=== PATIENT | male | born 1955 | race Caucasian/White ===

== ENCOUNTER 2016-11-07 18:35 | Inpatient (IN) | payer MEDICARE, OTHER, MEDICAID ==
[~2016-11-07] VITALS: Ht 190.5 cm; Wt 71.4 kg
[~2016-11-07 18:35] MED LIST: BENZ1TAB PO; HALO10 PO; LITH1TAB3 PO; MVI PO
[2016-11-07 18:47] VITALS: BP 175/87; PULSE 97; RESP 16; TEMP 98.6; O2SAT 97
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
[2016-11-07] MEDS ORDERED: TETANUS/DIPHTHERIA TOXOID ADULT 0.5 ML VIAL IM ONE (19:45)
[2016-11-07 20:10] LABS: BASOPHIL # 0.1 TH/MM3 (0-0.2); EOSINOPHIL # 0.1 TH/MM3 (0-0.4); EOSINOPHIL % 1.3 % (0.0-4.0); HEMATOCRIT 43.3 % (39.0-51.0); HEMO FLAGS DIFF FINAL; LYMPH % 23.1 % (9.0-44.0); LYMPHOCYTE # 2.1 TH/MM3 (1.0-4.8); MEAN CELL VOLUME 93.4 FL (80.0-100.0); MEAN CORPUSCULAR HEMOGLOBIN 31.1 PG (27.0-34.0); MEAN CORPUSCULAR HGB CONC 33.3 % (32.0-36.0); MONO % 7.9 % (0.0-8.0); NEUT % 66.7 % (16.0-70.0); PLATELET COUNT 235 TH/MM3 (150-450); RED BLOOD COUNT 4.63 MIL/MM3 (4.50-5.90); RED CELL DISTRIBUTION WIDTH 15.7 % (11.6-17.2)
[2016-11-07 20:17] LABS: AMPHETAMINE, URINE NEG (NEG); BARBITURATES, URINE NEG (NEG); COCAINE, URINE POS (NEG)
[2016-11-07 20:41] LABS: ANION GAP 6 MEQ/L (5-15); AST (GOT) 20 U/L (15-37); BICARBONATE 24.6 MEQ/L (21.0-32.0); BLOOD UREA NITROGEN 30 MG/DL (7-18); CHLORIDE 109 MEQ/L (98-107); GLOMERULAR FILTRATION RATE 35 ML/MIN (>89); POTASSIUM 4.4 MEQ/L (3.5-5.1); SODIUM (NA) 140 MEQ/L (136-145)
[2016-11-07 20:42] LABS: ALT (GPT) 24 U/L (12-78)
[2016-11-07 20:44] LABS: ALKALINE PHOSPHATASE 103 U/L (45-117); TOTAL BILIRUBIN ADULT 0.4 MG/DL (0.2-1.0)
[2016-11-07] MEDS ORDERED: SODIUM CHLOR 0.9% 1000 ML INJ 1,000 ML IV SCH (21:13)
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
[2016-11-08 09:30] VITALS: BP 131/73; PULSE 66; RESP 18; TEMP 97.9
[2016-11-08] MEDS ORDERED: ACETAMINOPHEN 325 MG TAB PO PRN (09:30)
[2016-11-08] MEDS ORDERED: LORazepam 2 MG/ML VIAL IM PRN (09:30)
[2016-11-08] MEDS ORDERED: BENZTROPINE MESYLATE 1 MG TAB PO PRN (09:30)
[2016-11-08] MEDS ORDERED: MAGNESIUM HYDROXIDE SUSP 30 ML CUP PO PRN (09:30)
[2016-11-08] MEDS ORDERED: ALUMINUM/MAGNESIUM/SIMETH 30 ML CUP PO PRN (09:30)
[2016-11-08] MEDS ORDERED: BENZTROPINE MESYLATE 2 MG/2 ML VIAL IM PRN (09:30)
[2016-11-08] MEDS ORDERED: cloNIDine HCL 0.1 MG TAB PO PRN (10:00)
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
[2016-11-08] MEDS ORDERED: OLANZapine ODT 5 MG TAB PO SCH (21:00)
[2016-11-08] MEDS: diphenhydrAMINE HCL 50 MG CAP PO PRN (21:19)
[2016-11-09] MEDS: LORazepam 1 MG TAB PO PRN ×2 (00:12→09:01)
[2016-11-09 06:16] VITALS: BP 141/88; PULSE 96; RESP 18; TEMP 97.6; O2SAT 98
[2016-11-09] MEDS ORDERED: REMOVE OLD PATCH T-DERMAL SCH (09:00)
[2016-11-09] MEDS: NICOTINE 21 MG/24 HR PATCH T-DERMAL SCH (09:01)
[2016-11-09 09:12] LABS: ANION GAP 6 MEQ/L (5-15); BICARBONATE 25.7 MEQ/L (21.0-32.0); BLOOD UREA NITROGEN 31 MG/DL (7-18); CHLORIDE 111 MEQ/L (98-107); GLOMERULAR FILTRATION RATE 38 ML/MIN (>89); POTASSIUM 4.2 MEQ/L (3.5-5.1); SODIUM (NA) 143 MEQ/L (136-145)
[2016-11-09 09:15] LABS: HDL CHOLESTEROL 56.1 MG/DL (40.0-60.0); LDL CHOLESTEROL 121 MG/DL (0-99)
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
[2016-11-09 17:07] LABS: HEMOGLOBIN A1a 1.2 %; HEMOGLOBIN A1b 1.7 %; HEMOGLOBIN Ao 84.4 %; HEMOGLOBIN LA1C 2.1 %; HEMOGLOBIN P3 5.7 %
[2016-11-09 19:19] VITALS: BP 112/76; PULSE 92; RESP 18; TEMP 98.1; O2SAT 99
[2016-11-09] MEDS: REMOVE OLD NICODERM (NICOTINE) PATCH T-DERMAL SCH (21:00)
[2016-11-09] MEDS ORDERED: OLANZapine 2.5 MG TAB PO SCH (21:00)
[2016-11-09] MEDS: diphenhydrAMINE HCL 50 MG CAP PO PRN (21:24)
[2016-11-10 06:21] VITALS: BP 136/77; PULSE 85; RESP 18; TEMP 97.6
[2016-11-10] MEDS: NICOTINE 21 MG/24 HR PATCH T-DERMAL SCH (08:17)
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
--- NOTE | 2016-11-10 13:25 | RADRPT ---
EXAM DATE/TIME: 11/10/2016 10:00 [facility] COMPARISON: No previous studies available for comparison. INDICATIONS : Increased Bun and Creatinine. MEDICAL HISTORY : Bipolar. Schizophrenic. SURGICAL HISTORY : None. ENCOUNTER: Initial ACUITY: 1 day PAIN SCORE: 0/10 LOCATION: Bilateral flank MEASUREMENTS: RIGHT KIDNEY: 11.3 x 5.6 x 5.3 cm LEFT KIDNEY: 11.3 x 3.8 x 5.8 cm FINDINGS: RIGHT KIDNEY: Renal cortical thickness is preserved but there is increased echogenicity with scattered cortical cys ts. These measure 1.5 x 2.1 x 1.4 cm and 1.6 x 1.4 x 1.2 cm in the upper pole as well as a 1.1 x 1.0 x 0.8 cm cyst in the lower pole.LEFT KIDNEY: Renal cortical thickness is preserved but there is increased cortical echogenicity with scattered cor tical cysts. Dominant cyst in the upper pole measures 1.3 x 1.4 x 1.2 cm BLADDER: Within normal limits given the degree of distension. CONCLUSION: 1. Kidney sizes are symmetric with preserved renal cortical thickness. 2. However, there is increased cortical echogenicity bilaterally suggesting acute medical renal disea se. 3. Benign-appearing bilateral small renal cortical cysts. Urinary bladder is sonographically normal. Froy Monreal MD on November 10, 2016 at 13:20 Board Certified Radiologist. This report was verified electronically.
[2016-11-10 15:59] VITALS: BP 167/110; PULSE 67; RESP 18; TEMP 98.1; O2SAT 100
[2016-11-10] MEDS: diphenhydrAMINE HCL 50 MG CAP PO PRN (20:38)
[2016-11-10] MEDS: REMOVE OLD NICODERM (NICOTINE) PATCH T-DERMAL SCH (20:41)
[2016-11-10] MEDS ORDERED: OLANZapine 10 MG TAB PO SCH (21:00)
[2016-11-11 06:11] VITALS: BP 143/90; PULSE 106; RESP 18; TEMP 97.6; O2SAT 99
[2016-11-11] MEDS: NICOTINE 21 MG/24 HR PATCH T-DERMAL SCH (08:44)
[2016-11-11 10:13] LABS: BICARBONATE 24.4 MEQ/L (21.0-32.0); POTASSIUM 4.2 MEQ/L (3.5-5.1)
--- NOTE | 2016-11-11 11:55 | HHI.PYPN ---
Subjective Remarks Patient seen and examined with counselor and nurse. Chart reviewed. Case discussed with nursing staff who reports patient remains bizarre and rambling. He continues in this manner during my evaluation. He does verbalize a desire to change his living situation but declines [facility] placement at this time. Denies SI or HI today. No side effects from medications. No physical complaints. Review of Systems ROS Limitations: Psychotic, Poor Historian Except as stated in HPI: all other systems reviewed are Neg Objective Alert: Yes [place]: Person, Place Mood: Other (mildly elevated) Affect: Other (somewhat expansive) Memory Intact: Comment (Not formally assessed) Hallucinations: Auditory (Remains int preoccupied) Delusions: Yes Delusion Type: Paranoid (?lessening) Suicidal: Ideation (Denies SI) Homicidal: Ideation (Denies HI) Insight/Judgment Poor Remarks No motor abnormalities noted. Thought process remains somewhat tangential. Grooming and hygiene fair at best. Labs Test 11/11/16 09:10 Sodium Level 143 MEQ/L Potassium Level 4.2 MEQ/L Chloride Level 113 MEQ/L Carbon Dioxide Level 24.4 MEQ/L Anion Gap 6 MEQ/L Blood Urea Nitrogen 29 MG/DL Creatinine 1.43 MG/DL Estimat Glomerular Filtration 50 ML/MIN Rate Random Glucose 66 MG/DL Calcium Level 9.2 MG/DL Labs reviewed. GFR improved. Vitals/IOs Vital Signs Date Time Temp Pulse Resp B/P Pulse Ox O2 Delivery O2 Flow Rate FiO2 11/11/16 06:11 97.6 106 18 143/90 99 11/07/16 18:47 Room Air Assessment & Plan Problem List: (1) Schizoaffective disorder, bipolar type ICD Code: F25.0 (2) Cocaine abuse ICD Code: F14.10 Assessment & Plan Titrate Zyprexa through the weekend to target psychosis. Continue to monitor on the high acuity unit. Continue other medications and care as ordered. Justification for Cont. Inpt. Med changes. High risk for decompensation in less restrictive environment. Discharge Planning Pending psychiatric stabilization. Possible discharge beginning of next week. We have recommended [facility] placement, but the patient has declined. Request HC Surrog/Guard Advoc?: No Semaj Dos Santos MD Nov 11, 2016 11:55
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
[2016-11-11 15:40] VITALS: BP 143/107
[2016-11-11 17:27] VITALS: BP 130/88
[2016-11-11] MEDS: REMOVE OLD NICODERM (NICOTINE) PATCH T-DERMAL SCH (21:00)
[2016-11-11] MEDS ORDERED: OLANZapine 5 MG TAB PO SCH (21:00)
[2016-11-11] MEDS ORDERED: OLANZapine 10 MG TAB PO SCH (21:00)
[2016-11-12 06:16] VITALS: BP 144/82; PULSE 100; RESP 18; TEMP 97.6; O2SAT 100
[2016-11-12] MEDS: NICOTINE 21 MG/24 HR PATCH T-DERMAL SCH (08:14)
--- NOTE | 2016-11-12 13:29 | HHI.PYPN ---
Subjective Remarks Pt seen and discussed with staff. He is compliant wi medications and is tolerating olanzapine titration without side effects. He is disorganized in behaviors and thought process. No SI/HI Objective Alert: Yes [place]: Person, Place Mood: Other (mildly elevated) Affect: Other (somewhat expansive) Memory Intact: Comment (Not formally assessed) Hallucinations: Auditory (Remains int preoccupied) Delusions: Yes Delusion Type: Paranoid (?lessening) Suicidal: Ideation (Denies SI) Homicidal: Ideation (Denies HI) Insight/Judgment disorganized Vitals/IOs Vital Signs Date Time Temp Pulse Resp B/P Pulse Ox O2 Delivery O2 Flow Rate FiO2 11/12/16 06:16 97.6 100 18 144/82 100 Assessment & Plan Problem List: (1) Schizoaffective disorder, bipolar type ICD Code: F25.0 (2) Cocaine abuse ICD Code: F14.10 Assessment & Plan Estimated LOS: days Justification for Cont. Inpt. impairments in reality construction Request HC Surrog/Guard Advoc?: Liss Gardner MD Nov 12, 2016 13:29
[2016-11-12 18:00] VITALS: BP 154/78; PULSE 77; RESP 18; TEMP 98.5
[2016-11-12] MEDS: REMOVE OLD NICODERM (NICOTINE) PATCH T-DERMAL SCH (20:59)
[2016-11-13 05:48] VITALS: BP 153/73; PULSE 100; RESP 18; TEMP 97.4; O2SAT 97
[2016-11-13] MEDS: NICOTINE 21 MG/24 HR PATCH T-DERMAL SCH (08:47)
--- NOTE | 2016-11-13 12:36 | HHI.PYPN ---
Subjective Remarks Pt seen and discussed with staff. He remains internally preoccupied and has been religiously preoccupied. He has been talking about cutting of his hand and burning the bible. He is intrusive during interview. He has been cooperative and compliant with medications. No SI/HI Objective Alert: Yes [place]: Person, Place Mood: Other (mildly elevated) Affect: Other (somewhat expansive) Memory Intact: Comment (Not formally assessed) Hallucinations: Auditory (Remains int preoccupied) Delusions: Yes Delusion Type: Paranoid (?lessening) Suicidal: Ideation (Denies SI) Homicidal: Ideation (Denies HI) Insight/Judgment poor Remarks pressured speech Vitals/IOs Vital Signs Date Time Temp Pulse Resp B/P Pulse Ox O2 Delivery O2 Flow Rate FiO2 11/13/16 05:48 97.4 100 18 153/73 97 Assessment & Plan Problem List: (1) Schizoaffective disorder, bipolar type ICD Code: F25.0 (2) Cocaine abuse ICD Code: F14.10 Assessment & Plan Continue current tx plan. Estimated LOS: days Justification for Cont. Inpt. impairments in reality testing and self care. Request HC Surrog/Guard Advoc?: Liss Gardner MD Nov 13, 2016 12:35
[2016-11-13 18:19] VITALS: BP 153/71; PULSE 71; RESP 18; TEMP 97.5; O2SAT 99
[2016-11-13] MEDS: REMOVE OLD NICODERM (NICOTINE) PATCH T-DERMAL SCH (21:00)
[2016-11-14 06:17] VITALS: BP 150/83; PULSE 79; RESP 18; TEMP 97.4; O2SAT 99
[2016-11-14] MEDS: NICOTINE 21 MG/24 HR PATCH T-DERMAL SCH (09:06)
--- NOTE | 2016-11-14 09:41 | HHI.PYPN ---
Subjective Remarks Patient seen and examined with counselor and nurse. Chart reviewed. Case discussed with nursing staff who reports that the patient slept poorly overnight and was telling nursing staff that he was hearing voices telling him to cut off his arm. On my examination today, the patient remains somewhat circumstantial. He denies any audiovisual hallucinations and denies any urge to self injure. He does say that prior to admission he was reading the Bible and came upon the passage that said that blood is required for the remission of since, and this is how he conceived of the idea to cut himself. He denies any urge to do so now. He admits that his sleep was somewhat poor overnight. Denies side effects from medications. No physical complaints. Review of Systems ROS Limitations: Poor Historian Except as stated in HPI: all other systems reviewed are Neg Objective Alert: Yes [place]: Person, Place (at least) Mood: Happy Affect: Euthymic (euthymic to very slightly expansive) Memory Intact: Comment (Not formally assessed) Hallucinations: Other (denies AVH) Delusions: Yes Delusion Type: Paranoid (lessening) Suicidal: Ideation (Denies SI) Homicidal: Ideation (Denies HI) Insight/Judgment Poor Remarks No motor abnormalities noted. Thought process somewhat circumstantial. Grooming and hygiene fair. Labs Labs reviewed. Vitals/IOs Vital Signs Date Time Temp Pulse Resp B/P Pulse Ox O2 Delivery O2 Flow Rate FiO2 11/14/16 06:17 97.4 79 18 150/83 99 Assessment & Plan Problem List: (1) Schizoaffective disorder, bipolar type ICD Code: F25.0 (2) Cocaine abuse ICD Code: F14.10 Assessment & Plan Titrate Zyprexa to 20 mg at bedtime to try to help with sleep and also psychosis. Continue to monitor on the high acuity unit. Continue other medications and care as ordered. Justification for Cont. Inpt. Medication changes in process. Discharge Planning Possible discharge later this week Request HC Surrog/Guard Advoc?: No Semaj Dos Santos MD Nov 14, 2016 09:41
[2016-11-14 18:11] VITALS: BP 130/79; PULSE 72; RESP 16; TEMP 97.4; O2SAT 98
[2016-11-14] MEDS: REMOVE OLD NICODERM (NICOTINE) PATCH T-DERMAL SCH (21:00)
[2016-11-14] MEDS: OLANZapine 10 MG TAB PO SCH (21:51)
[2016-11-14] MEDS: diphenhydrAMINE HCL 50 MG CAP PO PRN (21:52)
[2016-11-15 06:12] VITALS: BP 140/86; PULSE 71; RESP 18; TEMP 97.4; O2SAT 100
[2016-11-15] MEDS: NICOTINE 21 MG/24 HR PATCH T-DERMAL SCH (08:56)
--- NOTE | 2016-11-15 11:23 | HHI.PYPN ---
Subjective Remarks Patient seen and examined with nurse. Chart reviewed. Case discussed in treatment team. Nursing staff relates that the patient slept better and has been medication compliant. Counselor shares that the patient resides in a motel and has done so for several years and is welcome to return there. Occupational therapist notes that the patient is attending about 75% of groups and is somewhat intrusive but otherwise no real behavioral problem. On my examination today, the patient denies AVH. Denies any suicidal or homicidal ideation. Says that his presenting latter day preoccupation and subsequent self injury are in his past. Describes this behavior as "a mistake." Requesting discharge soon. Denies side effects from medications. No physical complaints. We discussed possible referral for assisted living placement, but the patient prefers to return to his current living situation. Review of Systems ROS Limitations: Poor Historian Except as stated in HPI: all other systems reviewed are Neg Objective Alert: Yes [place]: Person, Place Mood: Calm, Happy Affect: Euthymic Memory Intact: Comment (Not formally assessed) Hallucinations: Other (denies hallucinations) Delusions: No Delusion Type: Other (no delusions. Denies latter day preoccupation.) Suicidal: Ideation (Denies SI) Homicidal: Ideation (Denies HI) Insight/Judgment Poor Remarks No motor abnormalities. Thought processes fairly linear. Labs Labs reviewed. Vitals/IOs Vital Signs Date Time Temp Pulse Resp B/P Pulse Ox O2 Delivery O2 Flow Rate FiO2 11/15/16 06:12 97.4 71 18 140/86 100 Assessment & Plan Problem List: (1) Schizoaffective disorder, bipolar type ICD Code: F25.0 (2) Cocaine abuse ICD Code: F14.10 Assessment & Plan Continue Zyprexa as ordered. Continue to monitor on the inpatient unit. Continue other medications and care as ordered. Justification for Cont. Inpt. Monitoring for impairments in safety. So far none noted. Discharge Planning Possible discharge tomorrow if the patient remains improved. He declines assisted living placement and is capacitated to do so. Request HC Surrog/Guard Advoc?: No Semaj Dos Santos MD Nov 15, 2016 11:23
--- NOTE | 2016-11-15 11:23 | PD.TTN ---
Present for Treatment Team Treatment Team Staff: Provider (Dr. Dos Santos), Nurse (Jeff Champion RN), Psych Therapist (ELLI Baron), Occupational Therapist (MAURO Cruz) Patient Problems 1. Discharge planning 2. Medication compliance 3. Knowledge deficit 4. Lack of coping skills Progress Toward Goals Provider Input: Pt Zyprexa will be titrated to assist with further stabilization on medication regiment. Nurse Input: Pt appears to be sleeping better, is religiously preoccupied, cooperative and denies auditory hallucinations. Psych Therapist Input: Pt appears religiously preoccupied, delusional, calm, cooperative and appropriate. Pt presents with poor insight into condition and need for care. He appears to be able to utilize coping skills as he is no behavioral problem on unit. He is compliant with medication regiment. He will be offered assistance with placement at [facility] but can return to the motel that he has been living at for many years. Occupational Therapist Input: Pt is attending 75% of groups but has poor participation and is very intrusive. Documentation Scribe: ELLI Baron Jonathan LMHC Nov 15, 2016 11:23
[2016-11-15 18:10] VITALS: BP 139/72; PULSE 78; RESP 18; TEMP 98.2; O2SAT 100
[2016-11-15] MEDS: REMOVE OLD NICODERM (NICOTINE) PATCH T-DERMAL SCH (20:29)
[2016-11-15] MEDS: OLANZapine 10 MG TAB PO SCH (20:30)
[2016-11-15] MEDS: diphenhydrAMINE HCL 50 MG CAP PO PRN (20:32)
[2016-11-16 06:10] VITALS: BP 157/88; PULSE 81; RESP 18; TEMP 97.6; O2SAT 98
[2016-11-16] MEDS: NICOTINE 21 MG/24 HR PATCH T-DERMAL SCH (08:54)
[2016-11-16] MEDS ORDERED: BACI500O9 TOPICAL (10:44)
[2016-11-16] MEDS ORDERED: OLAN10TA PO (10:44)
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
[2016-11-16 13:16] LABS: BLOOD, URINE NEG (NEG); GLUCOSE,URINE NEG (NEG); KETONE, URINE NEG (NEG); NITRITE,URINE NEG (NEG); URINE COLOR LIGHT-YELLOW (YELLW/STRAW)
[2016-11-16 13:21] LABS: COMMENT (UR) CULT NOT INDICATED; CULTURE IF INDICATED CULT NOT INDICATED
== END 2016-11-16 14:35 | disposition home or self-care (01) | DRG 885 ==
LOC: NEDAMB 18:35 → NEDA 11-08 08:08 → H260 11-08 09:15 → H270 11-10 13:00
PROVIDERS: ADMIT Psychiatry & Neurology Psychiatry; ATTEND Psychiatry & Neurology Psychiatry
DX: F25.0 Schizoaffective disorder, bipolar type (principal); N17.9 Acute kidney failure, unspecified; F14.10 Cocaine abuse, uncomplicated; F17.210 Nicotine dependence, cigarettes, uncomplicated; N18.9 Chronic kidney disease, unspecified; I12.9 Hypertensive chronic kidney disease with stage 1 through stage 4 chronic kidney disease, or unspecified chronic kidney disease; S61.511A Laceration without foreign body of right wrist, initial encounter; X78.1XXA Intentional self-harm by knife, initial encounter
CPT/HCPCS: 76775; 80048; 80053; 80061; 80307; 81001; 83036; 85025; 90471; 90714; Q0163

== ENCOUNTER 2016-11-21 13:03 | Emergency (ER) | payer MEDICARE, OTHER ==
[~2016-11-21] VITALS: Ht 182.9 cm; Wt 80.0 kg
[~2016-11-21 13:03] MED LIST changes: +BACI500O9 TOPICAL; -BENZ1TAB PO; -HALO10 PO; -LITH1TAB3 PO; -MVI PO; +OLAN10TA PO
[2016-11-21 13:07] VITALS: BP 104/58; PULSE 136; RESP 20; TEMP 99.8; O2SAT 98
--- NOTE | 2016-11-21 13:17 | PD ---
Physical Exam Date Seen by Provider: Nov 21, 2016 Time Seen by Provider: 13:14 Narrative 61 y/o male with draining swollen right wrist since wounding it about 10 days ago and received a tetanus shot. Now having swelling, drainage, fever and chills. Vital signs reviewed. Patient stable. Awaiting Bed placement. Data Data Last Documented VS Vital Signs Date Time Temp Pulse Resp B/P Pulse Ox O2 Delivery O2 Flow Rate FiO2 11/21/16 13:07 99.8 136 20 104/58 98 MDM Medical Record Reviewed: Yes Supervised Visit with HASEEB: Yes Condition: Stable Yoan Lizarraga Nov 21, 2016 13:17
== END 2016-11-21 18:14 | disposition left against medical advice (07) ==
LOC: NED 13:03
DX: M79.89 Other specified soft tissue disorders (principal); Z53.21 Procedure and treatment not carried out due to patient leaving prior to being seen by health care provider
CPT/HCPCS: 99281

== ENCOUNTER 2016-11-22 08:05 | Inpatient (IN) | payer MEDICARE, MEDICAID ==
[~2016-11-22] VITALS: Ht 190.5 cm; Wt 73.9 kg
[2016-11-22 08:09] VITALS: BP 97/57; PULSE 141; RESP 18; TEMP 99.5; O2SAT 98
[2016-11-22 08:29] VITALS: BP 129/66; PULSE 113; RESP 23; O2SAT 99
[2016-11-22] MEDS ORDERED: VANCOMYCIN INJ 1,100 MG in SODIUM CHLOR 0.9% 250 ML INJ 250 ML IV ONE (08:30)
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
[2016-11-22] MEDS ORDERED: SODIUM CHLOR 0.9% 1000 ML INJ 1,000 ML IV ONE ×2 (08:45→09:30)
[2016-11-22 09:04] LABS: APTT (PATIENT) 29.1 SEC (24.3-30.1); AUTOMATED NEUTROPHIL # 14.3 TH/MM3 (1.8-7.7); BASOPHIL % 0.1 % (0.0-2.0); EOSINOPHIL # 0.5 TH/MM3 (0-0.4); EOSINOPHIL % 3.1 % (0.0-4.0); HEMATOCRIT 35.2 % (39.0-51.0); INTERNATIONAL NORMALIZED RATIO 0.9 RATIO; LYMPH % 2.6 % (9.0-44.0); LYMPHOCYTE # 0.4 TH/MM3 (1.0-4.8); MEAN CELL VOLUME 91.8 FL (80.0-100.0); MEAN CORPUSCULAR HEMOGLOBIN 30.9 PG (27.0-34.0); MEAN CORPUSCULAR HGB CONC 33.7 % (32.0-36.0); MONO % 2.8 % (0.0-8.0); NEUT % 91.4 % (16.0-70.0); PLATELET COUNT 196 TH/MM3 (150-450); PROTHROMBIN TIME - PATIENT 9.7 SEC (9.8-11.6); RED BLOOD COUNT 3.84 MIL/MM3 (4.50-5.90); WHITE BLOOD COUNT 15.6 TH/MM3 (4.0-11.0)
[2016-11-22 09:06] LABS: HEMO FLAGS AUTO DIFF
[2016-11-22 09:15] LABS: BICARBONATE 18.1 MEQ/L (21.0-32.0); POTASSIUM 3.9 MEQ/L (3.5-5.1)
[2016-11-22] MEDS ORDERED: MORPHINE SULFATE 4 MG/ML INJ IV PUSH ONE (09:30)
[2016-11-22 09:36] LABS: BANDS 25 % (0-6); EOSINOPHILS 1 % (0-4); NEUTROPHIL # MANUAL DIFF 14.5 TH/MM3 (1.8-7.7); POLYS (SEG NEUTROPHILS) 68 % (16-70); WBC DIFF SAMPLE 100
[2016-11-22 09:37] LABS: PLATELET ESTIMATE SMEAR NORMAL (NORMAL); PLATELET MORPHOLOGY NORMAL (NORMAL); SCAN/DIFF FINAL DIFF MANUAL
--- NOTE | 2016-11-22 10:14 | HHI.HP ---
[facility] Service Family Medicine Primary Care Physician No Primary Care Physician Admission Diagnosis Sepsis secondary to right wrist abscess Diagnoses: International Travel<30 Days: No Contact w/Intl Traveler<30days: No Known Affected Area: No History of Present Illness Patient is a 61-year-old male past medical history significant for schizoaffective disorder presenting due to swelling and redness of his right arm. He reports that the swelling has been worsening over the past 1-1/2 weeks. He reports that he cut his cut his arm with a "heavy knife" It is unclear if he has been cleaning this wound. He is unable to specify when it began to drain purulent material. He was previously prescribed antibiotic ointment, he has not taken any oral antibiotics. He reports that his range of motion of his fingers on his right arm is limited due to swelling but there is no pain when he moves his fingers. He endorses subjective fevers and chills. Pt is a poor historian. (Carly Sin MD R3) Review of Systems Constitutional: COMPLAINS OF: Fever, Chills Eyes: DENIES: Vision loss Ears, nose, mouth, throat: DENIES: Hearing loss Respiratory: DENIES: Shortness of breath Cardiovascular: DENIES: Chest pain Gastrointestinal: DENIES: Abdominal pain Musculoskeletal: COMPLAINS OF: Stiffness, Joint Swelling Integumentary: DENIES: Rash Hematologic/lymphatic: DENIES: Lymphadenopathy Psychiatric: COMPLAINS OF: Confusion (Carly Sin MD R3) Past Family Social History Past Medical History Pt reports history of HTN Per EMR: Schizoaffective disorder Past Surgical History Patient denies prior surgeries Reported Medications Reported Meds & Active Scripts Active Bacitracin Topical 500 Unit/Gm Oint 1 Applic TOPICAL BID Apply to wrist wound until well healed. Olanzapine 10 Mg Tab 20 Mg PO HS 15 Days (Carly Sin MD R3) Allergies: Coded Allergies: No Known Allergies (Verified , 11/21/16) Active Ordered Medications Inpatient Medications Acetaminophen (Tylenol) 650 mg Q4H PRN PO TEMP > 100.4; Start 11/22/16 at 10:30 Acetaminophen/ Hydrocodone Bitart ([place] 10-325 Mg) 1 tab Q4H PRN PO PAIN SCALE 6 TO 10; Start 11/22/16 at 10:30 Bisacodyl (Dulcolax Supp) 10 mg DAILY PRN RECTAL SEVERE CONSITIPATION; Start at 10:30 Heparin Sodium (Porcine) (Heparin Inj) 5,000 units Q12H SQ ; Start 11/22/16 at 12 :00 Ibuprofen 400 mg 400 mg Q6H PRN PO PAIN SCALE 1 TO 2; Start 11/22/16 at 10:30 Ketorolac Tromethamine (Toradol Inj) 15 mg Q6H PRN IVP Pain 3-5; if unable to take PO; Start 11/22/16 at 10:30; Stop 11/27/16 at 10:29 Lactulose (Lactulose Liq) 30 ml DAILY PRN PO SEVERE CONSITIPATION; Start at 10:30 Magnesium Hydroxide (Milk Of Magnesia Liq) 30 ml Q12H PRN PO MILD - MODERATE CONSTIPATION; Start 11/22/16 at 10:30 Morphine Sulfate (Morphine Inj) 4 mg Q3H PRN IV BREAKTHROUGH PAIN; Start at 10:30 Morphine Sulfate 2 mg 2 mg ONCE ONCE IV PUSH Last administered on 11/22/16t 09: 58; Start 11/22/16 at 09:30; Stop 11/22/16 at 09:31; Status DC Naloxone HCl (Narcan Inj) 0.4 mg UNSCH PRN IV SEE LABEL COMMENTS; Start at 10:30 Ondansetron HCl (Zofran Inj) 4 mg Q6H PRN IVP NAUSEA OR VOMITING; Start at 10:30 Pharmacy Profile Note (Vancomycin Consult Pharmacy) 0 ml @ 0 mls/hr UNSCH OTHER ; Start 11/22/16 at 11:00 Piperacillin Sod/ Tazobactam Sod 50 ml @ 100 mls/hr Q6H IV ; Start 11/22/16 at 12:00 Senna/Docusate Sodium (Mitzy-Colace) 1 tab BID PO ; Start 11/22/16 at 21:00 Sennosides (Senokot) 17.2 mg Q12H PRN PO MODERATE - SEVERE CONSTIPATION; Start 11/22/16 at 10:30 Sodium Chloride (NS 1000 ml Inj) 1,000 ml @ 100 mls/hr Q10H IV ; Start 11/22/16 at 10:21 Sodium Chloride (NS Flush) 2 ml BID IV FLUSH ; Start 11/22/16 at 21:00 Vancomycin HCl 1000 mg/Sodium Chloride 250 ml @ 250 mls/hr Q12H IV ; Start 11/22 at 11:00; Stop 11/22/16 at 11:06; Status DC Vancomycin HCl/ Sodium Chloride (Vancomycin Inj/ NS 250 ml Inj) 261 ml @ 250 mls/hr ONCE ONCE IV Last administered on 11/22/16t 09:35; Start 11/22/16 at 08: 30; Stop 11/22/16 at 09:32; Status DC Family History Patient reports that his mother and father both when he was young, he does not recall if they had any medical problems. Social History Patient reports smoking 1 1/2 PPD since age of 14 He drinks about 6 beers per week He smokes cocaine Pt unable to provide any additional specific history (Carly Sin MD R3) Physical Exam Vital Signs Vital Signs Date Time Temp Pulse Resp B/P Pulse Ox O2 Delivery O2 Flow Rate FiO2 11/22/16 08:29 113 23 129/66 99 Room Air 11/22/16 08:09 99.5 141 18 97/57 98 Physical Exam GENERAL: This is a disheveled appearing patient, laying comfortably in bed, in no apparent distress. SKIN: No rashes, ecchymoses. See below. HEAD: Atraumatic. Normocephalic. EYES: Last pupil pinpoint, sluggish to react. Right pupil, pinpoint, with leukocoria. Extraocular motions intact. No scleral icterus. No injection or drainage. ENT: Nose without bleeding, purulent drainage or septal hematoma. Throat with mild erythema, no tonsillar hypertrophy or exudate. Uvula midline. Airway patent. Edentulous. NECK: Trachea midline. Supple, nontender, no meningeal signs. CARDIOVASCULAR: Tachycardic rate and normal rhythm. 2/6 holosystolic murmur heard best at the left lower sternal border. RESPIRATORY: Good air movement, normal work of breathing. Anterior lung ernst auscultated. Coarse breath sounds. Mild expiratory wheezes in lower lung ernst. GASTROINTESTINAL: Abdomen soft, non-tender, nondistended. No hepato-splenomegaly , or palpable masses. No guarding. MUSCULOSKELETAL: Extremities without clubbing, cyanosis. Right forearm: Pt with 3cm opening on distal forearm with copious active purulent drainage, [id number]. Significant amount of fluid expressed with any movement of right hand. 2+ edema with erythema to prominal forearm. No right axillary lymphadenopathy. NEUROLOGICAL: Awake and alert. Patient with resting tremor. Motor and sensory grossly within normal limits. PSYCH: Patient with tangential speech. Not responding to external or internal stimuli. Laboratory Laboratory Tests Test 11/22/16 11/22/16 08:28 08:40 White Blood Count 15.6 Red Blood Count 3.84 Hemoglobin 11.9 Hematocrit 35.2 Mean Corpuscular Volume 91.8 Mean Corpuscular Hemoglobin 30.9 Mean Corpuscular Hemoglobin 33.7 Concent Red Cell Distribution Width 15.0 Platelet Count 196 Mean Platelet Volume 9.7 Neutrophils (%) (Auto) 91.4 Lymphocytes (%) (Auto) 2.6 Monocytes (%) (Auto) 2.8 Eosinophils (%) (Auto) 3.1 Basophils (%) (Auto) 0.1 Neutrophils # (Auto) 14.3 Lymphocytes # (Auto) 0.4 Monocytes # (Auto) 0.4 Eosinophils # (Auto) 0.5 Basophils # (Auto) 0.0 CBC Comment AUTO DIFF Differential Total Cells 100 Counted Neutrophils % (Manual) 68 Band Neutrophils % 25 Lymphocytes % 3 Monocytes % 3 Eosinophils % 1 Neutrophils # (Manual) 14.5 Differential Comment FINAL DIFF MANUAL Platelet Estimate NORMAL Platelet Morphology Comment NORMAL Red Cell Morphology Comment NORMAL Erythrocyte Sedimentation Rate 36 Prothrombin Time 9.7 Prothromb Time International 0.9 Ratio Activated Partial 29.1 Thromboplast Time Sodium Level 133 Potassium Level 3.9 Chloride Level 106 Carbon Dioxide Level 18.1 Anion Gap 9 Blood Urea Nitrogen 47 Creatinine 2.53 Estimat Glomerular Filtration 26 Rate Random Glucose 118 Calcium Level 8.2 C-Reactive Protein 16.00 Lactic Acid Level 2.4 Date/Time Procedure Status Source Growth 11/22/16 08:45 Gram Stain Received Wound Arm Pending 11/22/16 08:45 Wound Culture Received Wound Arm Pending 11/22/16 08:40 Aerobic Blood Culture Received Blood Peripheral Pending 11/22/16 08:40 Anaerobic Blood Culture Received Blood Peripheral Pending (Carly Sin MD R3) Result Diagram: 11/22/16 0828 11/22/16 0828 Septic Shock Reassessment Heart: Murmur Lungs: Course Skin: Warm Peripheral Pulses: Bounding Right Radial Bounding Left Radial Bounding Right Popliteal Bounding Left Popliteal Bounding Right Dorsalis Pedis Bounding Left Dorsalis Pedis Bounding Right Posterior Tibial Bounding Left Posterior Tibial Capillary Refill: Brisk (Carly Sin MD R3) Assessment and Plan Assessment and Plan Patient is a 61-year-old male past medical history significant for schizoaffective disorder admitted with right arm abscess and cellulitis. Code Status Full Discussed Condition With SDW Dr. Casiano, PGY1, Student Doctor Krysta (Carly Sin MD R3) Attending Attestation THIS CASE WAS DISCUSSED WITH THE RESIDENT PHYSICIANS. I HAVE REVIEWED THE RECORD AND AGREE WITH THE ABOVE NOTE AND PLAN OF CARE WAS DISCUSSED. I HAVE AUTHORIZED THE ORDER FOR ADMISSION TO AN IN-PATIENT STATUS. (Daren Mcghee MD) Problem List: (1) Sepsis Status: Acute Plan: On admission pt with elevated HR to 141, BP of 97/57, WBC elevated to 15.6. Source of infection: right arm abscess and cellulitis. Pt meeting sepsis criteria. Lactic acid elevated to 2.4. -Will recheck lactic acid -See antibiotics below -See fluids below (2) Abscess of right forearm Status: Acute Plan: On exam pt with significant cellulitis and actively draining purulent material from open wound on right arm. Pt is unable to specify how he has been caring for this wound. Concern for polymicrobial infection. Will cover with broad spectrum antibiotics. -Hand surgery consulted, appreciate recommendations and possible intervention -Would culture and blood culture pending -Consider ID consult once cultures result, possible candidate for Delvance Antibiotics: Vancomycin 1,000mg IV BID, Pharmacy consulted (11/22- ) Zosyn 3.375mg IV Q6hrs (11/22- ) (3) Heart murmur Status: Acute Plan: On exam pt with 2/6 systolic murmur, not previously documented. On admission HR significantly elevated to 141. Pt denies history of arrhythmia. -Echo ordered -EKG -Blood cultures pending (4) Cocaine abuse Status: Acute Plan: Pt with history of cocaine use, he reports that he last smoked cocaine 5 days ago. -UDS ordered -Ethanol level ordered -Avoid use of beta blockers (5) Schizoaffective disorder, bipolar type Status: Acute Plan: Continue home medication -Olanzapine 20mg po HS -Pt currently stable from a psychiatric standpoint -Consider Psych consult if needed. (6) FEN/PPX Status: Acute Plan: Fluid: Jocelyn S1 100 MLS/hour Electrolytes: Continue to monitor Nutrition: Nothing by mouth pending evaluation by hand surgery and possible intervention DVT PPX: We'll hold in anticipation of possible intervention (Carly Sin MD R3) Physician Certification 2 Midnight Certification Type: Admission for Inpatient Services Order for Inpatient Services The services are ordered in accordance with Medicare regulations or non- Medicare payer requirements, as applicable. In the case of services not specified as inpatient-only, they are appropriately provided as inpatient services in accordance with the 2-midnight benchmark. Estimated LOS (days): 2 2 days is the estimated time the patient will need to remain in the hospital, assuming treatment plan goals are met and no additional complications. Post-Hospital Plan: Not yet determined (Carly Sin MD R3) Problem Qualifiers (1) Sepsis: Qualified Code: A41.9 - Sepsis, due to unspecified organism Carly Sin MD R3 Nov 22, 2016 10:14 Daren Mcghee MD Nov 23, 2016 11:00
[2016-11-22] MEDS ORDERED: SODIUM CHLORIDE 0.9% FLUSH 10 ML FLUSH IV FLUSH PRN (10:30)
[2016-11-22] MEDS ORDERED: BISACODYL 10 MG SUPP RECTAL PRN (10:30)
[2016-11-22] MEDS ORDERED: NALOXONE HCL 0.4 MG/ML AMP IV PRN (10:30)
[2016-11-22] MEDS ORDERED: ACETAMINOPHEN/HYDROcodone 325 MG/10 MG TAB PO PRN (10:30)
[2016-11-22] MEDS ORDERED: ONDANSETRON HCL 4 MG/2 ML VIAL IVP PRN (10:30)
[2016-11-22] MEDS ORDERED: LACTULOSE SYRUP 20 GM/30 ML CUP PO PRN (10:30)
[2016-11-22] MEDS ORDERED: MAGNESIUM HYDROXIDE SUSP 30 ML CUP PO PRN (10:30)
[2016-11-22] MEDS ORDERED: MORPHINE SULFATE 4 MG/ML INJ IV PRN (10:30)
[2016-11-22] MEDS ORDERED: SENNOSIDES 8.6 MG TAB PO PRN (10:30)
[2016-11-22] MEDS ORDERED: ACETAMINOPHEN 325 MG TAB PO PRN (10:30)
[2016-11-22] MEDS ORDERED: KETOROLAC TROMETHAMINE 30 MG/ML (IVP) VIAL IVP PRN (10:30)
[2016-11-22] MEDS ORDERED: IBUPROFEN 400 MG TAB PO PRN (10:30)
[2016-11-22 10:47] LABS: LACTIC ACID GHOST NOT REPORTABLE
[2016-11-22] MEDS ORDERED: VANCOMYCIN INJ 1,000 MG in SODIUM CHLOR 0.9% 250 ML INJ 250 ML IV SCH (11:00)
[2016-11-22] MEDS ORDERED: Vancomycin Consult Pharmacy 1 EA OTHER SCH (11:00)
--- NOTE | 2016-11-22 11:13 | RADRPT ---
EXAM DATE/TIME: 11/22/2016 10:34 [facility] COMPARISON: No previous studies available for comparison. INDICATIONS : Right wrist swelling and pain. MEDICAL HISTORY : Hypertension. Bipolar disorder. Schizoaffective disorder. SURGICAL HISTORY : None. ENCOUNTER: Initial ACUITY: 1 week PAIN SCORE: 2/10 LOCATION: Right wrist. AREA EVALUATED: Right wrist. FINDINGS: MASSES: None. FLUID COLLECTIONS: No loculated fluid collections are demonstrated. There is diffuse nonspecific edema throughout the so ft tissues. OTHER: There is diffuse edema throughout the soft tissues with increased blood flow. There is edema around t he tendons. CONCLUSION: Diffuse nonspecific edema and increased blood through throughout the soft tissues at the level of the right hand and wrist. Findings suggest cellulitis. Dain Ponce MD on November 22, 2016 at 11:10 Board Certified Radiologist. This report was verified electronically.
[2016-11-22] MEDS ORDERED: PROPOFOL 200 MG/20 ML AMP IV ONE (11:24)
[2016-11-22] MEDS ORDERED: ONDANSETRON HCL 4 MG/2 ML VIAL IV PUSH ONE (11:25)
[2016-11-22] MEDS ORDERED: ePHEDrine/NS 25 MG/5 ML SYR IV ONE (11:25)
[2016-11-22] MEDS ORDERED: PHENYLEPH/NS 1000 MCG/10 ML SYR IV ONE (11:25)
[2016-11-22] MEDS ORDERED: LACTATED RINGER'S 1000 ML INJ 1,000 ML IV ONE (11:26)
[2016-11-22] MEDS ORDERED: VANCOMYCIN 500 MG/NS 100 ML IV ONE ×2 (12:00)
[2016-11-22] MEDS: HEPARIN SODIUM - SQ 10,000 UNITS/ML VIAL SQ SCH (12:00)
[2016-11-22] MEDS ORDERED: PIPERACIL-TAZO 3.375 GM PREMIX 50 ML IV SCH (12:00)
[2016-11-22] MEDS: SODIUM CHLOR 0.9% 1000 ML INJ 1,000 ML IV SCH (12:19)
[2016-11-22 12:52] VITALS: BP 104/68; PULSE 105; RESP 24; O2SAT 99
[2016-11-22 13:10] LABS: BACTERIA, URINE RARE /hpf; BLOOD, URINE NEG (NEG); GLUCOSE,URINE NEG (NEG); KETONE, URINE NEG (NEG); NITRITE,URINE NEG (NEG); URINE COLOR LIGHT-YELLOW (YELLW/STRAW)
[2016-11-22 13:13] LABS: COMMENT (UR) CULT NOT INDICATED; CULTURE IF INDICATED CULT NOT INDICATED
[2016-11-22 13:32] LABS: AMPHETAMINE, URINE NEG (NEG); BARBITURATES, URINE NEG (NEG); COCAINE, URINE NEG (NEG)
--- NOTE | 2016-11-22 14:56 | EKG ---
Date Performed: 11/22/2016 Time Performed: 08:40:48 PTAGE: 61 years EKG: SINUS TACHYCARDIA WITH SHORT DE INTERVAL ABNORMAL RHYTHM ECG PREVIOUS TRACING : 08/12/2009 07.24 DOCTOR: Kaela Strong Interpretating Date/Time 11/22/2016 14:53:10
[2016-11-22 16:00] VITALS: BP 93/55; PULSE 112; RESP 20; TEMP 98.6; O2SAT 100
[2016-11-22] MEDS: PIPERACIL-TAZO 2.25 GM PREMIX 50 ML IV SCH (18:25)
[2016-11-22 20:00] VITALS: BP 88/53; PULSE 125; RESP 20; TEMP 98.9; O2SAT 96
[2016-11-22] MEDS ORDERED: LIDOCAINE HCL 2% 50 ML VIAL ONE (20:29)
[2016-11-22] MEDS ORDERED: fentaNYL CITRATE 250 MCG/5 ML AMP ONE (20:59)
[2016-11-22] MEDS ORDERED: MIDAZOLAM HCL 2 MG/2 ML VIAL ONE (20:59)
[2016-11-22] MEDS ORDERED: LACTATED RINGER'S 1000 ML IV PRN (21:00)
[2016-11-22] MEDS ORDERED: SODIUM CHLORID 0.9% 500 ML IV PRN (21:00)
[2016-11-22] MEDS: REMOVE OLD PATCH T-DERMAL SCH (21:00)
[2016-11-22] MEDS ORDERED: NEOMYCIN/POLYMYXIN 1 ML G.U. IRRIGANT TOPICAL ONE (21:03)
[2016-11-22] MEDS ORDERED: DO NOT ADM ANY ANTICOAGULANT DRUGS PRN (22:20)
--- NOTE | 2016-11-22 22:59 | PD.ORT.PN ---
Subjective Subjective Remarks 61yM with history of prior laceration dorsum right wrist represents to [place] ER with drainage from the wound and edema right hand. Denies paresthesias. Reports improvement on IV Ab Objective Vitals Vital Signs Date Time Temp Pulse Resp B/P Pulse Ox O2 Delivery O2 Flow Rate FiO2 11/22/16 16:00 98.6 112 20 93/55 100 11/22/16 12:52 105 24 104/68 99 Room Air 11/22/16 08:29 113 23 129/66 99 Room Air 11/22/16 08:09 99.5 141 18 97/57 98 I/O 11/21/16 11/21/16 11/21/16 11/22/16 11/22/16 11/22/16 06:59 14:59 22:59 06:59 14:59 22:59 Intake Total 1100 ml Output Total 1000 ml 20 ml Balance -1000 ml 1080 ml Intake Other 1100 ml Output Urine Total 1000 ml Estimated Blood Loss 20 ml # Voids 1 Result Diagram: 11/22/16 0828 11/22/16 0828 Other Results Laboratory Tests Test 11/22/16 08:28 Prothrombin Time 9.7 SEC (9.8-11.6) Prothromb Time International 0.9 RATIO Ratio Imaging Last 24 hours Impressions Upper Extremity Ultrasound 11/22/16 0000 Signed Impressions: Service Date/Time: Tuesday, November 22, 2016 10:34 - CONCLUSION: Diffuse nonspecific edema and increased blood through throughout the soft tissues at the level of the right hand and wrist. Findings suggest cellulitis. Dain Ponce MD Objective Remarks Dressing in place, sitlt m/u/r, <2 sec capillary refill Assessment & Plan Assessment and Plan 61yM POD0 s/p I&D right wrist extensor tendons -Significant purulence in all extensor compartments, 1st, 2nd, 3rd, 4th 5th compartments, no complete tendon lacerations, partial old appearing laceration ECRB -Follow cultures, Ab per primary team -Packing in place, recommend changing POD2 -Elevate right hand and ROM right hand -Will continue to follow, Patient considered leaving AMA before surgery. Will continue to encourage patient to stay in hospital for IV Ab Johanne Hunt MD Nov 22, 2016 22:59
[2016-11-23] MEDS: NICOTINE 21 MG/24 HR PATCH T-DERMAL SCH ×2 (00:01→08:15)
[2016-11-23] MEDS: PIPERACIL-TAZO 2.25 GM PREMIX 50 ML IV SCH ×3 (00:01→12:13)
[2016-11-23] MEDS: SODIUM CHLOR 0.9% 1000 ML INJ 1,000 ML IV SCH ×3 (00:03→16:21)
[2016-11-23] MEDS: SODIUM CHLORIDE 0.9% FLUSH 10 ML FLUSH IV FLUSH SCH ×3 (00:04→20:15)
[2016-11-23 07:18] LABS: AUTOMATED NEUTROPHIL # 12.1 TH/MM3 (1.8-7.7); BASOPHIL % 0.3 % (0.0-2.0); EOSINOPHIL # 0.7 TH/MM3 (0-0.4); EOSINOPHIL % 4.5 % (0.0-4.0); HEMATOCRIT 34.1 % (39.0-51.0); HEMO FLAGS DIFF FINAL; LYMPH % 5.4 % (9.0-44.0); LYMPHOCYTE # 0.8 TH/MM3 (1.0-4.8); MEAN CORPUSCULAR HEMOGLOBIN 31.1 PG (27.0-34.0); MEAN CORPUSCULAR HGB CONC 33.8 % (32.0-36.0); MONO % 5.5 % (0.0-8.0); NEUT % 84.3 % (16.0-70.0); PLATELET COUNT 187 TH/MM3 (150-450); RED BLOOD COUNT 3.71 MIL/MM3 (4.50-5.90); WHITE BLOOD COUNT 14.4 TH/MM3 (4.0-11.0)
[2016-11-23 07:32] LABS: BICARBONATE 21.6 MEQ/L (21.0-32.0); POTASSIUM 3.5 MEQ/L (3.5-5.1)
[2016-11-23 08:00] VITALS: BP 93/56; PULSE 105; RESP 17; TEMP 99.1; O2SAT 96
[2016-11-23] MEDS: DOCUSATE SODIUM 50 MG/SENNA 8.6 MG TAB PO SCH ×3 (08:15→20:13)
--- NOTE | 2016-11-23 08:46 | HHI.FPPN ---
Subjective Remarks FM Attending Note: Patient seen and examined. S: Chart and all resident physician notes reviewed. In summary this is a 61 year old male who was admitted with an admission diagnosis of Sepsis Secondary To Right Wrist Abscess. This patient has a past medical history significant for schizoaffective disorder presenting due to swelling and redness of his right arm. He reports that the swelling has been worsening over the past 1-1/2 weeks. He reports that he cut his arm with a "heavy knife." Due to his psychiatric illness it is not clear how this occurred. It is also unclear if he has been cleaning this wound. He is unable to specify when it began to drain purulent material. He has been seen by orthopedic surgery and is now s/p incision and drainage of the wound. He is on parenteral antibiotic therapy. No fever or chills have occurred. . Objective Vitals Vital Signs Date Time Temp Pulse Resp B/P Pulse Ox O2 Delivery O2 Flow Rate FiO2 11/22/16 23:30 98.1 102 28 109/63 98 Room Air 11/22/16 23:15 30 109/68 98 Room Air 11/22/16 23:00 28 107/69 99 Room Air 11/22/16 22:45 25 104/65 99 Room Air 11/22/16 22:30 23 107/71 99 Nasal Cannula 2 11/22/16 22:20 98.4 108 19 107/69 99 Nasal Cannula 2 11/22/16 20:00 98.9 125 20 88/53 96 11/22/16 16:00 98.6 112 20 93/55 100 11/22/16 12:52 105 24 104/68 99 Room Air I/O 11/22/16 11/22/16 11/22/16 11/23/16 11/23/16 11/23/16 07:00 15:00 23:00 07:00 15:00 23:00 Intake Total 1150 ml 1266 ml Output Total 1000 ml 670 ml 1200 ml Balance -1000 ml 480 ml 66 ml Intake Oral 0 ml 720 ml IV Total 50 ml 546 ml Other 1100 ml Output Urine Total 1000 ml 650 ml 1200 ml Estimated Blood Loss 20 ml # Voids 1 Result Diagram: 11/23/16 0611 11/23/16 0611 Other Results Item Value Date Time Erythrocyte Sedimentation Rate 36 mm/hr H 11/22/16 0828 C-Reactive Protein 16.00 MG/DL H 11/22/16 0828 Lactic Acid Level 2.4 mmol/L H 11/22/16 0840 Random Glucose 105 MG/DL 11/23/16 0611 Toxicology screen is negative. Imaging Last 48 hours Impressions Upper Extremity Ultrasound 11/22/16 0000 Signed Impressions: Service Date/Time: Tuesday, November 22, 2016 10:34 - CONCLUSION: Diffuse nonspecific edema and increased blood through throughout the soft tissues at the level of the right hand and wrist. Findings suggest cellulitis. Dain Ponce MD Objective Remarks O. CONSTITUTIONAL/GEN: normally nourished, in NAD. EYES: conjunctiva normal, PERRLA, EOMI. ENT: Mouth and pharynx normal. LUNGS: clear A-P, respiratory effort is normal. CARDIOVASCULAR: RR without murmur or gallop. No significant edema. GI/ABD: soft without masses, without organomegaly. NEURO: No focal deficits. SKIN: color normal, no rashes noted. HEME/LYMPH: no bruising, petechia or significant adenopathy MUSC: back is normal in appearance. Extremities are normal in appearance with the exception of his right arm which is now dressed with a bulky dressing. Movement of fingers and color is normal. PSYCH/MENTAL STATUS: Alert and oriented x 3. Speech is pressured with loose associations. A/P Assessment and Plan Patient is a 61-year-old male past medical history significant for schizoaffective disorder admitted with right arm abscess and cellulitis. Problem List: (1) Sepsis Status: Acute Plan: On admission pt with elevated HR to 141, BP of 97/57, WBC elevated to 15.6. Source of infection: right arm abscess and cellulitis. Pt meeting sepsis criteria. Lactic acid elevated to 2.4. -Will recheck lactic acid -See antibiotics below -See fluids below 11/23/16 Patient now is s/p I&D of wound. Antibiotic therapy continues. Acute septic symptoms appear to have resolved. (2) Abscess of right forearm Status: Acute Plan: On exam pt with significant cellulitis and actively draining purulent material from open wound on right arm. Pt is unable to specify how he has been caring for this wound. Concern for polymicrobial infection. Will cover with broad spectrum antibiotics. -Hand surgery consulted, appreciate recommendations and possible intervention -Would culture and blood culture pending -Consider ID consult once cultures result, possible candidate for Delvance Antibiotics: Vancomycin 1,000mg IV BID, Pharmacy consulted (11/22- ) Zosyn 3.375mg IV Q6hrs (11/22- ) S/p I&D. Continue IV antibiotic therapy and supportive care. (3) Heart murmur Status: Acute Plan: On exam pt with 2/6 systolic murmur, not previously documented. On admission HR significantly elevated to 141. Pt denies history of arrhythmia. -Echo ordered -EKG -Blood cultures pending (4) Cocaine abuse Status: Acute Plan: Pt with history of cocaine use, he reports that he last smoked cocaine 5 days ago. -UDS ordered -Ethanol level ordered -Avoid use of beta blockers 11/23/16 UDS is negative. (5) Schizoaffective disorder, bipolar type Status: Acute Plan: Continue home medication -Olanzapine 20mg po HS -Pt currently stable from a psychiatric standpoint -Consider Psych consult if needed. (6) FEN/PPX Status: Acute Plan: Fluid: Jocelyn S1 100 MLS/hour Electrolytes: Continue to monitor Nutrition: Nothing by mouth pending evaluation by hand surgery and possible intervention DVT PPX: We'll hold in anticipation of possible intervention Problem Qualifiers (1) Sepsis: Qualified Code: A41.9 - Sepsis, due to unspecified organism Daren Mcghee MD Nov 23, 2016 08:46
[2016-11-23 12:00] VITALS: BP 109/68; PULSE 91; RESP 16; TEMP 98.2; O2SAT 99
[2016-11-23] MEDS: HEPARIN SODIUM - SQ 10,000 UNITS/ML VIAL SQ SCH ×3 (12:00→23:23)
[2016-11-23 12:05] VITALS: O2SAT 99
[2016-11-23] MEDS: VANCOMYCIN INJ 1,250 MG in SODIUM CHLOR 0.9% 250 ML INJ 250 ML IV SCH (12:51)
[2016-11-23 16:00] VITALS: BP 104/64; PULSE 90; RESP 17; TEMP 97; O2SAT 97
[2016-11-23 18:05] VITALS: O2SAT 97
[2016-11-23 20:03] VITALS: BP 119/63; PULSE 82; RESP 18; TEMP 98.2; O2SAT 98
[2016-11-23] MEDS: REMOVE OLD PATCH T-DERMAL SCH (20:14)
[2016-11-23] MEDS: OLANZapine 10 MG TAB PO SCH ×2 (20:14)
--- NOTE | 2016-11-23 22:08 | RADRPT ---
EXAM DATE/TIME: 11/23/2016 21:49 [facility] COMPARISON: No previous studies available for comparison. INDICATIONS : Right wrist pain, swelling for 1 week MEDICAL HISTORY : None. SURGICAL HISTORY : None. ENCOUNTER: Initial ACUITY: 1 week PAIN SCORE: 5/10 LOCATION: Right entire wrist FINDINGS: There is soft tissue swelling at the right wrist. No acute bony abnormalities. Overlying cast present . Small locule air noted on the dorsal aspect of hand. CONCLUSION: 1. Soft tissue swelling of the right hand and wrist with small locule of air in the soft tissues dors ally. No acute bony Suresh Lr MD on November 23, 2016 at 22:01 Board Certified Radiologist. This report was verified electronically.
[2016-11-24] VITALS (7 sets, daily range): BP systolic 100–115; BP diastolic 55–65; PULSE 69–82; RESP 17–20; TEMP 96.8–98.3; O2SAT 97–100
[2016-11-24] MEDS: SODIUM CHLOR 0.9% 1000 ML INJ 1,000 ML IV SCH ×3 (03:42→20:46)
[2016-11-24 06:10] LABS: AUTOMATED NEUTROPHIL # 7.6 TH/MM3 (1.8-7.7); BASOPHIL # 0.1 TH/MM3 (0-0.2); BASOPHIL % 0.5 % (0.0-2.0); EOSINOPHIL # 0.6 TH/MM3 (0-0.4); EOSINOPHIL % 5.9 % (0.0-4.0); HEMATOCRIT 30.5 % (39.0-51.0); HEMO FLAGS DIFF FINAL; LYMPH % 12.6 % (9.0-44.0); LYMPHOCYTE # 1.3 TH/MM3 (1.0-4.8); MEAN CELL VOLUME 92.3 FL (80.0-100.0); MEAN CORPUSCULAR HEMOGLOBIN 31.4 PG (27.0-34.0); MONO % 8.1 % (0.0-8.0); NEUT % 72.9 % (16.0-70.0); PLATELET COUNT 215 TH/MM3 (150-450); RED BLOOD COUNT 3.31 MIL/MM3 (4.50-5.90); WHITE BLOOD COUNT 10.5 TH/MM3 (4.0-11.0)
[2016-11-24 06:38] LABS: BICARBONATE 18.7 MEQ/L (21.0-32.0); POTASSIUM 3.9 MEQ/L (3.5-5.1)
--- NOTE | 2016-11-24 06:58 | MB ---
cc: NANCY LEY DATE OF CONSULTATION 11/22/2016 REASON FOR CONSULTATION Abscess involving the right forearm, wrist and hand. HISTORY OF PRESENT ILLNESS Neftaly Lr is a 61-year-old male with a past medical history significant for schizoaffective disorder and hypertension who initially was seen in the emergency room on 11/07/2016 for lacerations to his wrist and face but hand surgery was not consulted during that admission. He was found to have a superficial laceration to the right wrist. He was admitted to the psychiatric unit. He was discharged on 11/16/2016 and represented on 11/22/2016 with purulent drainage from the right wrist laceration. He was also tachycardiac with elevated white count 15.6, ESR 36, CRP 16, acute kidney injury with creatinine 2.53. Preliminary cultures from the emergency room showing gram-positive cocci. He was tachycardiac. The patient was alert and oriented denying any suicidal ideation. I was asked to evaluate the patient after orthopedic surgery refused to see the patient. The patient reported pain with range of motion of the fingers and thumb. Denied any paresthesias. He reported significant improvement on the IV antibiotics since presenting to the emergency room. PAST MEDICAL HISTORY Schizoaffective disorder, HTN. MEDICATIONS Olanzapine ALLERGIES NO KNOWN DRUG ALLERGIES. SOCIAL HISTORY The patient states that he lives alone. Reports to smoking half pack per day. Drinks social alcohol. Past history of cocaine use. VITAL SIGNS Temperature 99.5, pulse 113, blood pressure 129/66. LABORATORY DATA As above PHYSICAL EXAMINATION GENERAL: The patient is alert and oriented, although he is concerned about smoking and is considering leaving AMA. EXTREMITIES: Exam of the right upper extremity shows no significant erythema. Compartments are soft and compressible. He does have edema to the hand. The patient has good range of motion of the fingers and thumb without extensor lag. He is able to make a near full fist. Sensation grossly intact in the median, ulnar, and radial distribution. 2+ radial pulse. He has approximately a 4 cm laceration on the dorsal radial aspect of the right wrist just proximal to the wrist crease with significant purulence. No pain with passive range of motion of the wrist. ASSESSMENT/PLAN A 61-year-old male with an infected laceration with concern for significant extensor tenosynovitis and deep abscess of the right wrist. Treatment options discussed with the patient. I recommended urgent surgical intervention including incision and drainage of the abscess, debridement of the tendons, surgery as indicated and he elected to proceed. At this time, there is no sign of compartment syndrome or a septic wrist. He has no pain with passive range of motion of the wrist. The risks were explained, but not limited to sepsis, wound complications, infection, rupture of the tendons, paresthesias, pain, need for additional surgeries and the patient elected to proceed. This will be done at the earliest available time in the operating room. The patient understands I will likely put packing in place which will be changed until the wound heals. The patient was educated on the importance of compliance and staying in the hospital for surgical intervention and IV antibiotics. MD CHRIS Puga/MILLY /9:30 PM /6:43 AM VIRI
[2016-11-24] MEDS: SODIUM CHLORIDE 0.9% FLUSH 10 ML FLUSH IV FLUSH SCH ×2 (08:17→20:45)
[2016-11-24] MEDS: DOCUSATE SODIUM 50 MG/SENNA 8.6 MG TAB PO SCH ×2 (08:17→20:43)
[2016-11-24] MEDS: NICOTINE 21 MG/24 HR PATCH T-DERMAL SCH (08:17)
[2016-11-24] MEDS: HEPARIN SODIUM - SQ 10,000 UNITS/ML VIAL SQ SCH ×2 (12:00→23:41)
--- NOTE | 2016-11-24 12:15 | HHI.FPPN ---
Subjective Remarks Patient seen and examine today. No acute issues over night. Patient states that his arm is feeling better today, less pain and swelling. No other complaints of nausea, vomiting, fever, chills, chest pain, shortness of breath, abdominal pain , change in bowel habits, change in urinary habits. (Felton Casiano MD R1) Objective Vitals Vital Signs Date Time Temp Pulse Resp B/P Pulse Ox O2 Delivery O2 Flow Rate FiO2 11/24/16 09:26 99 21 11/24/16 08:00 97.3 72 18 106/63 100 11/24/16 00:06 98.3 80 20 100/55 100 11/23/16 20:03 98.2 82 18 119/63 98 11/23/16 18:05 97 21 11/23/16 16:00 97.0 90 17 104/64 97 I/O 11/23/16 11/23/16 11/23/16 11/24/16 11/24/16 11/24/16 07:00 15:00 23:00 07:00 15:00 23:00 Intake Total 1266 ml 5120 ml 626 ml 813 ml Output Total 1200 ml 3175 ml 450 ml 2100 ml Balance 66 ml 1945 ml 176 ml -1287 ml Intake Oral 720 ml 4320 ml 480 ml 280 ml IV Total 546 ml 800 ml 146 ml 533 ml Output Urine Total 1200 ml 3175 ml 450 ml 2100 ml # Voids 2 # Bowel Movements 2 (Felton Casiano MD R1) Result Diagram: 11/24/16 0537 11/24/16 0537 Imaging Last Impressions Wrist X-Ray 11/23/16 0000 Signed Impressions: Service Date/Time: Wednesday, November 23, 2016 21:49 - CONCLUSION: 1. Soft tissue swelling of the right hand and wrist with small locule of air in the soft tissues dorsally. No acute bony Suresh Lr MD Upper Extremity Ultrasound 11/22/16 0000 Signed Impressions: Service Date/Time: Tuesday, November 22, 2016 10:34 - CONCLUSION: Diffuse nonspecific edema and increased blood through throughout the soft tissues at the level of the right hand and wrist. Findings suggest cellulitis. Dain Ponce MD Objective Remarks CONSTITUTIONAL/GEN: normally nourished, in NAD. EYES: conjunctiva normal, PERRLA, EOMI. ENT: Mouth and pharynx normal. LUNGS: clear A-P, respiratory effort is normal. CARDIOVASCULAR: RR without gallop. 2/6 holosystolic murmur. No significant edema. GI/ABD: soft without masses, without organomegaly. NEURO: No focal deficits. SKIN: color normal, no rashes noted. Right forearm wrapped, sterile, dry, intact. HEME/LYMPH: no bruising, petechia or significant adenopathy MUSC: Extremities are normal in appearance with the exception of his right arm noted above. Movement of fingers and color is normal. Swelling still present in fingers, improved from admission. PSYCH/MENTAL STATUS: Alert and oriented x 3. Speech is pressured with loose associations. Procedures Right wrist I&D 11/22/16 Medications and IVs Current Medications Medications (Trade) Dose Ordered Sig/Anup Route Start Time Stop Time Status Last Admin (NS 1000 ml Inj) 1,000 ml @ 100 mls/hr Q10H IV 11/22/16 10:21 11/24/16 03:42 (NS Flush) 2 ml UNSCH PRN IV FLUSH 11/22/16 10:30 (NS Flush) 2 ml BID IV FLUSH 11/22/16 21:00 11/23/16 00:04 (Tylenol) 650 mg Q4H PRN PO 11/22/16 10:30 (Zofran Inj) 4 mg Q6H PRN IVP 11/22/16 10:30 (Heparin Inj) 5,000 units Q12H SQ 11/22/16 12:00 (Narcan Inj) 0.4 mg UNSCH PRN IV 11/22/16 10:30 (Mitzy-Colace) 1 tab BID PO 11/22/16 21:00 11/24/16 08:17 (Milk Of Magnesia Liq) 30 ml Q12H PRN PO 11/22/16 10:30 (Senokot) 17.2 mg Q12H PRN PO 11/22/16 10:30 (Dulcolax Supp) 10 mg DAILY PRN RECTAL 11/22/16 10:30 (Lactulose Liq) 30 ml DAILY PRN PO 11/22/16 10:30 (Toradol Inj) 15 mg Q6H PRN IVP 11/22/16 10:30 11/27/16 10:29 ([place] 10-325 Mg) 1 tab Q4H PRN PO 11/22/16 10:30 11/24/16 08:20 (Morphine Inj) 4 mg Q3H PRN IV 11/22/16 10:30 Ibuprofen 400 mg 400 mg Q6H PRN PO 11/22/16 10:30 (Vancomycin Consult Pharmacy) 0 ml @ 0 mls/hr UNSCH OTHER 11/22/16 11:00 (ZyPREXA) 20 mg HS PO 11/22/16 21:00 11/23/16 20:14 (Habitrol 21 Mg Patch.24 Hr) 1 patch DAILY T-DERMAL 11/22/16 20:15 11/24/16 08:17 Miscellaneous Information 1 1 HS T-DERMAL 11/22/16 21:00 11/22/16 21:00 Lactated Ringer's 1,000 ml @ 30 mls/hr Q24H PRN IV 11/22/16 21:00 11/25/16 20:59 Sodium Chloride 500 ml @ 30 mls/hr [id number] PRN IV 11/22/16 21:00 11/25/16 20:59 (Vancomycin Inj/ NS 250 ml Inj) 262.5 ml @ 250 mls/hr Q24H IV 11/23/16 12:00 11/23/16 12:51 Miscellaneous Information SPECIFIC LAB TO BE DRAWN:VANCO TROUGH DATE TO... ONCE ONCE .XX 11/26/16 11:45 11/26/16 11:46 (Felton Casiano MD R1) A/P Assessment and Plan Patient is a 61-year-old male past medical history significant for schizoaffective disorder admitted with right arm abscess and cellulitis. (Felton Casiano MD R1) Attending Attestation Patient seen and examined. Case reviewed and discussed with the resident team. Agree with plan of care as discussed with me and documented in the resident note. (Daren Mcghee MD) Problem List: (1) Sepsis Status: Acute Plan: On admission pt with elevated HR to 141, BP of 97/57, WBC elevated to 15.6. Source of infection: right arm abscess and cellulitis. Pt meeting sepsis criteria. Lactic acid elevated to 2.4. on admission, decreased to 1.0 -See antibiotics below -See fluids below 11/23/16 Patient now is s/p I&D of wound (11/22/16). Antibiotic therapy continues. Acute septic symptoms appear to have resolved. (2) Abscess of right forearm Status: Acute Plan: On exam pt with significant cellulitis and actively draining purulent material from open wound on right arm. Pt is unable to specify how he has been caring for this wound. Concern for polymicrobial infection. Will cover with broad spectrum antibiotics. -Hand surgery consulted, appreciate recommendations and possible intervention -Would culture shows group A beta strep, pansensitive -Blood culture no growth to date -Consider changing to PO antibiotics prior to discharge Antibiotics: Vancomycin 1,000mg IV BID, Pharmacy consulted (11/22- ) Zosyn 3.375mg IV Q6hrs (11/22- 11/23) S/p I&D. Continue IV antibiotic therapy and supportive care. (3) Heart murmur Status: Acute Plan: On exam pt with 2/6 systolic murmur, not previously documented. On admission HR significantly elevated to 141. Pt denies history of arrhythmia. -EKG sinus tachycardia with short IA -Blood cultures no growth to date (4) Cocaine abuse Status: Acute Plan: Pt with history of cocaine use, he reports that he last smoked cocaine 5 days ago. -UDS negative -Ethanol level <3 -Avoid use of beta blockers (5) Schizoaffective disorder, bipolar type Status: Acute Plan: Continue home medication -Olanzapine 20mg po HS -Pt currently stable from a psychiatric standpoint -Consider Psych consult if needed. (6) FEN/PPX Status: Acute Plan: Fluid: Jocelyn S1 100 MLS/hour Electrolytes: Continue to monitor Nutrition: Nothing by mouth pending evaluation by hand surgery and possible intervention DVT PPX: We'll hold in anticipation of possible intervention (Felton Casiano MD R1) Problem Qualifiers (1) Sepsis: Qualified Code: A41.9 - Sepsis, due to unspecified organism Felton Casiano MD R1 Nov 24, 2016 12:14 Daren Mcghee MD Nov 25, 2016 14:06
[2016-11-24] MEDS: VANCOMYCIN INJ 1,250 MG in SODIUM CHLOR 0.9% 250 ML INJ 250 ML IV SCH (13:17)
[2016-11-24] MEDS: OLANZapine 10 MG TAB PO SCH (20:43)
[2016-11-24] MEDS: REMOVE OLD PATCH T-DERMAL SCH (20:46)
[2016-11-25] VITALS (7 sets, daily range): BP systolic 120–131; BP diastolic 66–97; PULSE 77–87; RESP 17–20; TEMP 97.3–98; O2SAT 97–100
[2016-11-25 07:16] LABS: AUTOMATED NEUTROPHIL # 5.8 TH/MM3 (1.8-7.7); BASOPHIL # 0.1 TH/MM3 (0-0.2); BASOPHIL % 0.6 % (0.0-2.0); EOSINOPHIL # 0.9 TH/MM3 (0-0.4); EOSINOPHIL % 9.6 % (0.0-4.0); HEMO FLAGS DIFF FINAL; LYMPH % 21.1 % (9.0-44.0); MEAN CELL VOLUME 92.4 FL (80.0-100.0); MEAN CORPUSCULAR HEMOGLOBIN 31.4 PG (27.0-34.0); MONO % 7.5 % (0.0-8.0); NEUT % 61.2 % (16.0-70.0); PLATELET COUNT 280 TH/MM3 (150-450); RED BLOOD COUNT 3.46 MIL/MM3 (4.50-5.90); RED CELL DISTRIBUTION WIDTH 14.9 % (11.6-17.2); WHITE BLOOD COUNT 9.5 TH/MM3 (4.0-11.0)
[2016-11-25 07:33] LABS: ALT (GPT) 24 U/L (12-78); ANION GAP 7 MEQ/L (5-15); AST (GOT) 12 U/L (15-37); BICARBONATE 19.9 MEQ/L (21.0-32.0); BLOOD UREA NITROGEN 21 MG/DL (7-18); CHLORIDE 119 MEQ/L (98-107); GLOMERULAR FILTRATION RATE 46 ML/MIN (>89); POTASSIUM 4.3 MEQ/L (3.5-5.1); SODIUM (NA) 146 MEQ/L (136-145); TOTAL BILIRUBIN ADULT 0.3 MG/DL (0.2-1.0)
[2016-11-25 07:34] LABS: ALKALINE PHOSPHATASE 81 U/L (45-117)
[2016-11-25] MEDS: SODIUM CHLOR 0.9% 1000 ML INJ 1,000 ML IV SCH ×3 (08:16→22:09)
[2016-11-25] MEDS: DOCUSATE SODIUM 50 MG/SENNA 8.6 MG TAB PO SCH ×2 (08:16→22:08)
[2016-11-25] MEDS: SODIUM CHLORIDE 0.9% FLUSH 10 ML FLUSH IV FLUSH SCH ×2 (08:16→21:00)
[2016-11-25] MEDS: NICOTINE 21 MG/24 HR PATCH T-DERMAL SCH (08:16)
--- NOTE | 2016-11-25 11:02 | MP ---
cc: JOHANNE HUNT DATE OF SURGERY 11/22/2016 PREOPERATIVE DIAGNOSIS Abscess right forearm, wrist, and hand with concern for involvement of the extensor tendons PREOPERATIVE DIAGNOSIS Abscess right wrist, hand, and forearm including significant abscess and infectious extensor tenosynovitis around the first, second, third, fourth, and fifth compartments of the wrist and finger extensors. PROCEDURE 1. Incision and drainage deep abscess right wrist. 2. Extensor tendon tenosynovectomy first dorsal compartment. 3. Extensor tendon tenosynovectomy second compartment right wrist. 4. Extensor tendon tenosynovectomy third compartment right wrist. 5. Extensor tendon tenosynovectomy fourth compartment right wrist. 6. Extensor tendon tenosynovectomy fifth compartment right wrist. SURGEON Dr. Johanne Hunt ANESTHESIA General and local TOURNIQUET TIME 19 minutes at 200 mmHg SPECIMEN Cultures Drain Iodoform packing INDICATIONS FOR PROCEDURE Neftaly Lr is a 61-year-old right-hand dominant male who sustained a self-inflicted laceration over the wrist prior to his last hospitalization on 11/07/2016. I was not consulted at that time. The patient represented to the emergency room after being discharged on 11/22/2016 with purulence coming from the wound. The patient had significant purulence, edema to the hand and I recommended emergent irrigation and debridement of the abscess, synovectomy of the tendon sheaths, surgery as indicated and he elected to proceed. The risks were explained, but not limited to sepsis, wound complications, infection, tendon rupture, septic arthritis of the wrist and he elected to proceed. DESCRIPTION OF PROCEDURE The patient was identified in the preoperative holding area. The correct extremity was marked. The patient was taken to the operating room, anesthesia was induced. The right upper extremity was prepped and draped in a normal sterile fashion. The prior laceration on the dorsum of the wrist was extended proximally and distally. Upon making a skin incision, there was significant purulence which was sent for culture. All of the wrist compartments were identified and there was significant purulence in every compartment including the first, second, third, fourth and fifth extensor compartments. These were extensively debrided under loupe magnification with care taken to protect all of the extensor tendons. The wound was irrigated 3 liters of antibiotic saline. There was a partial old appearing partial rupture of the ECRB. Otherwise, the tendons remained intact. An arthrotomy was not made as the patient was having no pain with passive range of motion of the wrist and I did not want to introduce bacteria into the wrist joint itself. The wound was loosely closed with chromic. Iodoform packing was placed. The patient was placed into a wrist splint and awoken from anesthesia without any complications after approximately 10 cc of 2% lidocaine with no epinephrine was used for local anesthesia of the wrist. Cultures will be followed closely. The patient will remain in the hospital on IV antibiotics. It was again emphasized the importance of the patient staying in the hospital as prior to surgery he stated that he was considering leaving the hospital AMA in order to smoke a cigarette. MD CHRIS Puga/MILLY /9:39 PM /10:49 AM MTDDebbie
--- NOTE | 2016-11-25 11:22 | HHI.FPPN ---
Subjective Remarks The pt states he is feeling better everyday. He denies any pain of his right UE at the site of I&D. He has noticed that the swelling of his right hand has improved but has not gone away completely yet. He denies chest pain, SOB, abdominal pain, nausea/vomiting, and dizziness. (Felton Casiano MD R1) Objective Vitals Vital Signs Date Time Temp Pulse Resp B/P Pulse Ox O2 Delivery O2 Flow Rate FiO2 11/25/16 08:00 97.3 77 18 123/97 100 11/25/16 00:00 98.0 86 20 120/70 97 11/24/16 20:00 97.9 81 20 115/64 99 11/24/16 17:32 97 21 11/24/16 16:00 97.5 82 18 107/63 97 11/24/16 12:00 96.8 69 17 102/65 100 I/O 11/24/16 11/24/16 11/24/16 11/25/16 11/25/16 11/25/16 07:00 15:00 23:00 07:00 15:00 23:00 Intake Total 813 ml 2308 ml 758 ml 634 ml Output Total 2100 ml 1000 ml 900 ml Balance -1287 ml 2308 ml -242 ml -266 ml Intake Oral 280 ml 1920 ml 480 ml 480 ml IV Total 533 ml 388 ml 278 ml 154 ml Output Urine Total 2100 ml 1000 ml 900 ml # Voids 3 # Bowel Movements 1 0 0 (Felton Casiano MD R1) Result Diagram: 11/25/16 0455 11/25/16 0455 Imaging Last Impressions Wrist X-Ray 11/23/16 0000 Signed Impressions: Service Date/Time: Wednesday, November 23, 2016 21:49 - CONCLUSION: 1. Soft tissue swelling of the right hand and wrist with small locule of air in the soft tissues dorsally. No acute bony Suresh Lr MD Upper Extremity Ultrasound 11/22/16 0000 Signed Impressions: Service Date/Time: Tuesday, November 22, 2016 10:34 - CONCLUSION: Diffuse nonspecific edema and increased blood through throughout the soft tissues at the level of the right hand and wrist. Findings suggest cellulitis. Dain Ponce MD Objective Remarks CONSTITUTIONAL/GEN: normally nourished, in NAD. EYES: conjunctiva normal, PERRLA, EOMI. ENT: Mouth and pharynx normal. LUNGS: clear A-P, respiratory effort is normal. CARDIOVASCULAR: RR without gallop. 2/6 holosystolic murmur. No significant edema. GI/ABD: soft without masses, without organomegaly. NEURO: No focal deficits. SKIN: color normal, no rashes noted. Right forearm wrapped, sterile, dry, intact. HEME/LYMPH: no bruising, petechia or significant adenopathy MUSC: Extremities are normal in appearance with the exception of his right arm noted above. Movement of fingers and color is normal. Swelling still present in fingers, improved from admission. PSYCH/MENTAL STATUS: Alert and oriented x 3. Speech is pressured with loose associations. Procedures Right wrist I&D 11/22/16 Medications and IVs Current Medications Medications (Trade) Dose Ordered Sig/Anup Route Start Time Stop Time Status Last Admin (NS 1000 ml Inj) 1,000 ml @ 100 mls/hr Q10H IV 11/22/16 10:21 11/25/16 08:16 (NS Flush) 2 ml UNSCH PRN IV FLUSH 11/22/16 10:30 (NS Flush) 2 ml BID IV FLUSH 11/22/16 21:00 11/23/16 00:04 (Tylenol) 650 mg Q4H PRN PO 11/22/16 10:30 (Zofran Inj) 4 mg Q6H PRN IVP 11/22/16 10:30 (Heparin Inj) 5,000 units Q12H SQ 11/22/16 12:00 (Narcan Inj) 0.4 mg UNSCH PRN IV 11/22/16 10:30 (Mitzy-Colace) 1 tab BID PO 11/22/16 21:00 11/25/16 08:16 (Milk Of Magnesia Liq) 30 ml Q12H PRN PO 11/22/16 10:30 11/24/16 20:47 (Senokot) 17.2 mg Q12H PRN PO 11/22/16 10:30 (Dulcolax Supp) 10 mg DAILY PRN RECTAL 11/22/16 10:30 (Lactulose Liq) 30 ml DAILY PRN PO 11/22/16 10:30 (Toradol Inj) 15 mg Q6H PRN IVP 11/22/16 10:30 11/27/16 10:29 ([place] 10-325 Mg) 1 tab Q4H PRN PO 11/22/16 10:30 11/24/16 08:20 (Morphine Inj) 4 mg Q3H PRN IV 11/22/16 10:30 Ibuprofen 400 mg 400 mg Q6H PRN PO 11/22/16 10:30 (Vancomycin Consult Pharmacy) 0 ml @ 0 mls/hr UNSCH OTHER 11/22/16 11:00 (ZyPREXA) 20 mg HS PO 11/22/16 21:00 11/24/16 20:43 (Habitrol 21 Mg Patch.24 Hr) 1 patch DAILY T-DERMAL 11/22/16 20:15 11/25/16 08:16 Miscellaneous Information 1 1 HS T-DERMAL 11/22/16 21:00 11/24/16 20:46 Lactated Ringer's 1,000 ml @ 30 mls/hr Q24H PRN IV 11/22/16 21:00 11/25/16 20:59 Sodium Chloride 500 ml @ 30 mls/hr [id number] PRN IV 11/22/16 21:00 11/25/16 20:59 (Vancomycin Inj/ NS 250 ml Inj) 262.5 ml @ 250 mls/hr Q24H IV 11/23/16 12:00 11/24/16 13:17 Miscellaneous Information SPECIFIC LAB TO BE DRAWN:VANCO TROUGH DATE TO... ONCE ONCE .XX 11/26/16 11:45 11/26/16 11:46 (Felton Casiano MD R1) A/P Assessment and Plan Patient is a 61-year-old male past medical history significant for schizoaffective disorder admitted with right arm abscess and cellulitis. Discharge Planning Pending clearance by hand surgery (Felton Casiano MD R1) Attending Attestation Patient seen and examined. Case reviewed and discussed with the resident team. Agree with plan of care as discussed with me and documented in the resident note. (Daren Mcghee MD) Problem List: (1) Sepsis Status: Acute Plan: On admission pt with elevated HR to 141, BP of 97/57, WBC elevated to 15.6. Source of infection: right arm abscess and cellulitis. Pt meeting sepsis criteria. Lactic acid elevated to 2.4. on admission, decreased to 1.0 -See antibiotics below -See fluids below 11/23/16 Patient now is s/p I&D of wound (11/22/16). Antibiotic therapy continues. Acute septic symptoms appear to have resolved. (2) Abscess of right forearm Status: Acute Plan: On exam pt with significant cellulitis and actively draining purulent material from open wound on right arm. Pt is unable to specify how he has been caring for this wound. Concern for polymicrobial infection. Will cover with broad spectrum antibiotics. -Hand surgery consulted, appreciate recommendations and possible intervention -Would culture shows group A beta strep, pansensitive -Blood culture no growth to date -changing to PO Bactrim Antibiotics: Vancomycin 1,000mg IV BID, Pharmacy consulted (11/22-11/25 ) Zosyn 3.375mg IV Q6hrs (11/22- 11/23) S/p I&D. Continue IV antibiotic therapy and supportive care. (3) Heart murmur Status: Acute Plan: On exam pt with 2/6 systolic murmur, not previously documented. On admission HR significantly elevated to 141. Pt denies history of arrhythmia. -EKG sinus tachycardia with short OK -Blood cultures no growth to date (4) Cocaine abuse Status: Acute Plan: Pt with history of cocaine use, he reports that he last smoked cocaine 5 days ago. -UDS negative -Ethanol level <3 -Avoid use of beta blockers (5) Schizoaffective disorder, bipolar type Status: Acute Plan: Continue home medication -Olanzapine 20mg po HS -Pt currently stable from a psychiatric standpoint -Consider Psych consult if needed. (6) FEN/PPX Status: Acute Plan: Fluid: Jocelyn S1 100 MLS/hour Electrolytes: Continue to monitor Nutrition: Nothing by mouth pending evaluation by hand surgery and possible intervention DVT PPX: We'll hold in anticipation of possible intervention (Felton Casiano MD R1) Problem Qualifiers (1) Sepsis: Qualified Code: A41.9 - Sepsis, due to unspecified organism Felton Casiano MD R1 Nov 25, 2016 11:22 Daren Mcghee MD Nov 25, 2016 14:08
[2016-11-25] MEDS: HEPARIN SODIUM - SQ 10,000 UNITS/ML VIAL SQ SCH ×2 (11:58→22:09)
--- NOTE | 2016-11-25 20:50 | PD.ORT.PN ---
Subjective Subjective Remarks 61yM with infected self-inflicted laceration right wrist. Patient reports improvement in pain and denies paresthesias after surgery. Patient states he has not been compliant with elevation of right arm. Objective Vitals Vital Signs Date Time Temp Pulse Resp B/P Pulse Ox O2 Delivery O2 Flow Rate FiO2 11/25/16 17:37 98 21 11/25/16 14:27 97.8 80 17 129/86 98 11/25/16 12:35 98 21 11/25/16 12:00 97.8 81 18 131/84 99 11/25/16 08:00 97.3 77 18 123/97 100 11/25/16 00:00 98.0 86 20 120/70 97 I/O 11/24/16 11/24/16 11/24/16 11/25/16 11/25/16 11/25/16 07:00 15:00 23:00 07:00 15:00 23:00 Intake Total 813 ml 2308 ml 758 ml 634 ml 1231 ml Output Total 2100 ml 1000 ml 900 ml Balance -1287 ml 2308 ml -242 ml -266 ml 1231 ml Intake Oral 280 ml 1920 ml 480 ml 480 ml 1000 ml IV Total 533 ml 388 ml 278 ml 154 ml 231 ml Output Urine Total 2100 ml 1000 ml 900 ml # Voids 3 # Bowel Movements 1 0 0 Result Diagram: 11/25/16 0455 11/25/16 0455 Imaging Last 24 hours Impressions Upper Extremity Ultrasound 11/22/16 0000 Signed Impressions: Service Date/Time: Tuesday, November 22, 2016 10:34 - CONCLUSION: Diffuse nonspecific edema and increased blood through throughout the soft tissues at the level of the right hand and wrist. Findings suggest cellulitis. Dain Ponce MD Objective Remarks Dressing changed, edema right hand, function intact epl/fpl/finger extensors & flexors, compartments soft and compressible, packing in place with mild drainage , sitlt m/u/r, <2 sec capillary refill Assessment & Plan Assessment and Plan 61yM POD3 s/p I&D right wrist extensor tendons -Significant purulence in all extensor compartments, 1st, 2nd, 3rd, 4th 5th compartments, no complete tendon lacerations, partial old appearing laceration ECRB -Cultures + Staph Aureus and Group A Step, Ab per primary team, WBC decreased to 9.5 -Continue daily dressing and packing changes -Elevate right hand and ROM right hand, Patient educated on importance of elevation right hand, recommend IV pole elevation and patient states will be compliant -Will continue to follow, likely d/c early next week Johanne Hunt MD Nov 25, 2016 20:50
[2016-11-25] MEDS: REMOVE OLD PATCH T-DERMAL SCH (21:00)
[2016-11-25] MEDS: OLANZapine 10 MG TAB PO SCH (22:08)
[2016-11-25] MEDS: SULFAMETHOXAZOLE-TRIMETHOPRIM DS 800-160 MG TAB PO SCH (22:08)
[2016-11-26] VITALS: BP 96/55; PULSE 80; RESP 18; TEMP 98.3; O2SAT 97
[2016-11-26 07:19] LABS: HEMATOCRIT 37.2 % (39.0-51.0); MEAN CELL VOLUME 93.8 FL (80.0-100.0); MEAN CORPUSCULAR HEMOGLOBIN 30.1 PG (27.0-34.0); MEAN CORPUSCULAR HGB CONC 32.1 % (32.0-36.0); PLATELET COUNT 343 TH/MM3 (150-450); RED BLOOD COUNT 3.97 MIL/MM3 (4.50-5.90); RED CELL DISTRIBUTION WIDTH 15.1 % (11.6-17.2); REVIEW FLAG FINAL; WHITE BLOOD COUNT 8.5 TH/MM3 (4.0-11.0)
[2016-11-26 07:51] LABS: BICARBONATE 23.5 MEQ/L (21.0-32.0); POTASSIUM 3.9 MEQ/L (3.5-5.1)
[2016-11-26 08:00] VITALS: BP 159/86; PULSE 82; RESP 19; TEMP 98.5; O2SAT 99
[2016-11-26] MEDS: NICOTINE 21 MG/24 HR PATCH T-DERMAL SCH (09:00)
[2016-11-26] MEDS: SODIUM CHLORIDE 0.9% FLUSH 10 ML FLUSH IV FLUSH SCH ×2 (09:00→21:00)
--- NOTE | 2016-11-26 09:23 | HHI.FPPN ---
Subjective Remarks Pt seen and examined this morning. Pt reports feeling well overall. He notes that his right fingers are more swollen, he has not been elevating his arm as instructed. He denies chest pain, shortness of breath, abdominal pain. He has no other acute concerns. (Carly Sin MD R3) Objective Vitals Vital Signs Date Time Temp Pulse Resp B/P Pulse Ox O2 Delivery O2 Flow Rate FiO2 11/26/16 08:00 98.5 82 19 159/86 99 11/26/16 00:00 98.3 80 18 96/55 97 11/25/16 20:00 97.9 87 20 121/66 100 11/25/16 17:37 98 21 11/25/16 14:27 97.8 80 17 129/86 98 11/25/16 12:35 98 21 11/25/16 12:00 97.8 81 18 131/84 99 I/O 11/25/16 11/25/16 11/25/16 11/26/16 11/26/16 11/26/16 07:00 15:00 23:00 07:00 15:00 23:00 Intake Total 634 ml 1231 ml 480 ml 320 ml 120 ml Output Total 900 ml Balance -266 ml 1231 ml 480 ml 320 ml 120 ml Intake Oral 480 ml 1000 ml 480 ml 320 ml 120 ml IV Total 154 ml 231 ml Output Urine Total 900 ml # Voids 2 2 # Bowel Movements 0 0 0 (Carly Sin MD R3) Result Diagram: 11/26/16 0618 11/26/16 0618 Objective Remarks CONSTITUTIONAL/GEN: normally nourished, in NAD. EYES: conjunctiva normal, PERRLA, EOMI. ENT: Mouth and pharynx normal. LUNGS: clear A-P, respiratory effort is normal. CARDIOVASCULAR: RR without gallop. 2/6 holosystolic murmur. No significant edema. GI/ABD: soft without masses, without organomegaly. NEURO: No focal deficits. SKIN: color normal, no rashes noted. Right forearm wrapped, clean, dry, intact. HEME/LYMPH: no bruising, petechia or significant adenopathy MUSC: Extremities are normal in appearance with the exception of his right arm noted above. Movement of fingers and color is normal, neurovascularly intact. Swelling still present in fingers, improved from admission. PSYCH/MENTAL STATUS: Alert and oriented x 3. Speech is pressured with loose associations. Procedures Right wrist I&D 11/22/16 (Carly Sin MD R3) A/P Assessment and Plan Patient is a 61-year-old male past medical history significant for schizoaffective disorder admitted with right arm abscess and cellulitis. Discharge Planning Anticipate discharge once patient is cleared by hand surgery, likely and 12 days. (Carly Sin MD R3) Attending Attestation Patient seen and examined. Case reviewed and discussed with the resident team. Agree with plan of care as discussed with me and documented in the resident note. (Daren Mcghee MD) Problem List: (1) Abscess of right forearm Status: Acute Plan: On exam pt with significant cellulitis and actively draining purulent material from open wound on right arm. Pt is unable to specify how he has been caring for this wound. -Hand surgery consulted, appreciate recommendations and intervention -Patient now is s/p I&D of wound (11/22/16) -Patient to keep right arm elevated to help relieve swelling -Would culture shows group A beta strep, pansensitive -Blood culture no growth to date -Continue oral Bactrim Antibiotic history: Vancomycin 1,000mg IV BID, Pharmacy consulted (11/22-11/25 ) Zosyn 3.375mg IV Q6hrs (11/22- 11/23) (2) Heart murmur Status: Acute Plan: On exam pt with 2/6 systolic murmur, not previously documented. On admission HR significantly elevated to 141. Pt denies history of arrhythmia. -EKG sinus tachycardia with short OK -Blood cultures no growth to date (3) Cocaine abuse Status: Acute Plan: Pt with history of cocaine use, he reports that he last smoked cocaine 5 days ago. -UDS negative -Ethanol level <3 -Avoid use of beta blockers (4) Schizoaffective disorder, bipolar type Status: Acute Plan: Continue home medication -Olanzapine 20mg po HS -Pt currently stable from a psychiatric standpoint -Consider Psych consult if needed. (5) Elevated serum creatinine Status: Acute Plan: On admission creatinine elevated to 2.53. Per EMR review baseline appears to be around 1.5. -Creatinine down trending, currently at baseline -Continue to monitor. (6) FEN/PPX Status: Acute Plan: Fluid: None, patient tolerating by mouth Electrolytes: Continue to monitor Nutrition: Regular diet DVT PPX: Heparin (Carly Sin MD R3) Carly Sin MD R3 Nov 26, 2016 09:23 Daren Mcghee MD Nov 27, 2016 15:10 Qualified Code: A41.9 - Sepsis, due to unspecified organism Carly Sin MD R3 Nov 26, 2016 09:23
[2016-11-26] MEDS: DOCUSATE SODIUM 50 MG/SENNA 8.6 MG TAB PO SCH ×2 (09:45→21:29)
[2016-11-26] MEDS: SULFAMETHOXAZOLE-TRIMETHOPRIM DS 800-160 MG TAB PO SCH ×2 (09:45→21:29)
[2016-11-26 10:00] VITALS: O2SAT 98
[2016-11-26] MEDS ORDERED: PHARMACY ORDERED LAB ONE (11:45)
[2016-11-26 12:00] VITALS: BP 105/63; PULSE 82; RESP 19; TEMP 97.9; O2SAT 97
[2016-11-26] MEDS: HEPARIN SODIUM - SQ 10,000 UNITS/ML VIAL SQ SCH ×2 (12:00→21:30)
[2016-11-26 16:00] VITALS: BP 124/73; PULSE 82; RESP 19; TEMP 97.2; O2SAT 100
[2016-11-26 20:00] VITALS: BP 148/75; PULSE 72; RESP 20; TEMP 97.4; O2SAT 97
[2016-11-26] MEDS: REMOVE OLD PATCH T-DERMAL SCH (21:00)
[2016-11-26] MEDS: OLANZapine 10 MG TAB PO SCH (21:29)
[2016-11-27] VITALS: BP 150/75; PULSE 79; RESP 20; TEMP 98.6; O2SAT 98
[2016-11-27 05:41] LABS: AUTOMATED NEUTROPHIL # 5.2 TH/MM3 (1.8-7.7); BASOPHIL % 0.3 % (0.0-2.0); EOSINOPHIL # 0.6 TH/MM3 (0-0.4); EOSINOPHIL % 7.3 % (0.0-4.0); HEMATOCRIT 33.7 % (39.0-51.0); HEMO FLAGS DIFF FINAL; LYMPH % 25.5 % (9.0-44.0); LYMPHOCYTE # 2.2 TH/MM3 (1.0-4.8); MEAN CORPUSCULAR HEMOGLOBIN 30.9 PG (27.0-34.0); MEAN CORPUSCULAR HGB CONC 33.2 % (32.0-36.0); MONO % 7.5 % (0.0-8.0); NEUT % 59.4 % (16.0-70.0); PLATELET COUNT 318 TH/MM3 (150-450); RED BLOOD COUNT 3.62 MIL/MM3 (4.50-5.90); RED CELL DISTRIBUTION WIDTH 14.7 % (11.6-17.2); WHITE BLOOD COUNT 8.7 TH/MM3 (4.0-11.0)
[2016-11-27 06:02] LABS: BICARBONATE 21.1 MEQ/L (21.0-32.0); POTASSIUM 4.2 MEQ/L (3.5-5.1)
[2016-11-27 08:00] VITALS: BP 145/75; PULSE 82; RESP 19; TEMP 96.9; O2SAT 99
--- NOTE | 2016-11-27 10:19 | PD.AMA ---
Against Medical Advice Note Diagnosis: (1) Abscess of right forearm (2) Sepsis Discharge Disposition: Against Medical Advice Pt Condition on Discharge: Stable Recommended Treatment Course PO antibiotics, left before it could be prescribed AMA Statement Patient Neftaly Lr has decided to leave the hospital against medical advice. This patient has the capacity to refuse care and understands the risks of leaving, including permanent disability and/or , and has had an opportunity to ask questions about his condition. The patient has been informed that he may return for care at any time, and follow up has been advised. The patient will not be allowed back on the Family Medicine Service. Ricardo Tao MD, R3 Nov 27, 2016 10:19
--- NOTE | 2016-11-27 10:48 | HHI.DS ---
Discharge Summary Admission Date Nov 22, 2016 at 10:04 Discharge Date: Nov 27, 2016 Admitting Diagnosis Sepsis secondary to right wrist abscess (1) Abscess of right forearm Diagnosis: Principal Plan: On exam pt with significant cellulitis and actively draining purulent material from open wound on right arm. Pt is unable to specify how he has been caring for this wound. -Hand surgery consulted, appreciate recommendations and intervention -Patient now is s/p I&D of wound (11/22/16) -Patient to keep right arm elevated to help relieve swelling -Would culture shows group A beta strep, pansensitive -Blood culture no growth to date -Continue oral Bactrim Antibiotic history: Vancomycin 1,000mg IV BID, Pharmacy consulted (11/22-11/25 ) Zosyn 3.375mg IV Q6hrs (11/22- 11/23) (2) Heart murmur Diagnosis: Secondary Plan: On exam pt with 2/6 systolic murmur, not previously documented. On admission HR significantly elevated to 141. Pt denies history of arrhythmia. -EKG sinus tachycardia with short CA -Blood cultures no growth to date (3) Cocaine abuse Diagnosis: Secondary Plan: Pt with history of cocaine use, he reports that he last smoked cocaine 5 days ago. -UDS negative -Ethanol level <3 -Avoid use of beta blockers (4) Schizoaffective disorder, bipolar type Diagnosis: Secondary Plan: Continue home medication -Olanzapine 20mg po HS -Pt currently stable from a psychiatric standpoint -Consider Psych consult if needed. (5) Elevated serum creatinine Diagnosis: Secondary Plan: On admission creatinine elevated to 2.53. Per EMR review baseline appears to be around 1.5. -Creatinine down trending, currently at baseline -Continue to monitor. (6) FEN/PPX Diagnosis: Secondary Plan: Fluid: None, patient tolerating by mouth Electrolytes: Continue to monitor Nutrition: Regular diet DVT PPX: [facility] Orth[facility] hand surgery Procedures Right wrist I&D 11/22/16 Brief History Patient is a 61-year-old male past medical history significant for schizoaffective disorder presenting due to swelling and redness of his right arm. He reports that the swelling has been worsening over the past 1-1/2 weeks. He reports that he cut his cut his arm with a "heavy knife" It is unclear if he has been cleaning this wound. He is unable to specify when it began to drain purulent material. He was previously prescribed antibiotic ointment, he has not taken any oral antibiotics. He reports that his range of motion of his fingers on his right arm is limited due to swelling but there is no pain when he moves his fingers. He endorses subjective fevers and chills. Pt is a poor historian. CBC/BMP: 11/27/16 0500 11/27/16 0500 Significant Findings Laboratory Tests Test 11/25/16 11/26/16 11/27/16 04:55 06:18 05:00 Red Blood Count 3.46 MIL/MM3 3.97 MIL/MM3 3.62 MIL/MM3 (4.50-5.90) (4.50-5.90) (4.50-5.90) Hemoglobin 10.9 GM/DL 12.0 GM/DL 11.2 GM/DL (13.0-17.0) (13.0-17.0) (13.0-17.0) Hematocrit 32.0 % 37.2 % 33.7 % (39.0-51.0) (39.0-51.0) (39.0-51.0) Eosinophils (%) (Auto) 9.6 % (0.0-4.0) 7.3 % (0.0-4.0) Eosinophils # (Auto) 0.9 TH/MM3 0.6 TH/MM3 (0-0.4) (0-0.4) Sodium Level 146 MEQ/L 149 MEQ/L 146 MEQ/L (136-145) (136-145) (136-145) Chloride Level 119 MEQ/L 119 MEQ/L 117 MEQ/L (98-107) (98-107) (98-107) Carbon Dioxide Level 19.9 MEQ/L (21.0-32.0) Blood Urea Nitrogen 21 MG/DL (7-18) Creatinine 1.54 MG/DL 1.54 MG/DL 1.60 MG/DL (0.60-1.30) (0.60-1.30) (0.60-1.30) Estimat Glomerular Filtration 46 ML/MIN (>89) 46 ML/MIN (>89) 44 ML/MIN (>89) Rate Calcium Level 7.9 MG/DL 8.1 MG/DL (8.5-10.1) (8.5-10.1) Aspartate Amino Transf 12 U/L (15-37) (AST/SGOT) Total Protein 6.2 GM/DL (6.4-8.2) Albumin 2.3 GM/DL (3.4-5.0) Imaging Last Impressions Wrist X-Ray 11/23/16 0000 Signed Impressions: Service Date/Time: Wednesday, November 23, 2016 21:49 - CONCLUSION: 1. Soft tissue swelling of the right hand and wrist with small locule of air in the soft tissues dorsally. No acute bony Suresh Lr MD Upper Extremity Ultrasound 11/22/16 0000 Signed Impressions: Service Date/Time: Tuesday, November 22, 2016 10:34 - CONCLUSION: Diffuse nonspecific edema and increased blood through throughout the soft tissues at the level of the right hand and wrist. Findings suggest cellulitis. Dain Ponce MD PE at Discharge CONSTITUTIONAL/GEN: normally nourished, in NAD. EYES: conjunctiva normal, PERRLA, EOMI. ENT: Mouth and pharynx normal. LUNGS: clear A-P, respiratory effort is normal. CARDIOVASCULAR: RR without gallop. 2/6 holosystolic murmur. No significant edema. GI/ABD: soft without masses, without organomegaly. NEURO: No focal deficits. SKIN: color normal, no rashes noted. Right forearm wrapped, clean, dry, intact. HEME/LYMPH: no bruising, petechia or significant adenopathy MUSC: Extremities are normal in appearance with the exception of his right arm noted above. Movement of fingers and color is normal, neurovascularly intact. Swelling still present in fingers, improved from admission. PSYCH/MENTAL STATUS: Alert and oriented x 3. Speech is pressured with loose associations. Hospital Course Patient was admitted on 11/22/16 for abscess of the right forearm. Orthopedic hand surgeon was consulted and I&D was performed. Patient was started on IV antibiotics with intentions to transition to oral antibiotics. However prior to his transition to oral antibiotics patient left AMA. Pt Condition on Discharge: Stable Discharge Disposition: Discharge Home (AMA) Discharge Instructions DIET: Follow Instructions for: As Tolerated, No Restrictions Activities you can perform: Regular-No Restrictions Ricardo Tao MD, R3 Nov 27, 2016 10:48
== END 2016-11-27 10:45 | disposition left against medical advice (07) | DRG 854 ==
LOC: NEPC 08:05 → NEDA 10:04 → N07B 14:56
PROVIDERS: ADMIT Family Medicine; ATTEND Family Medicine
PROC: 0LB70ZZ Excision of Right Hand Tendon, Open Approach (ICD-10-PCS; principal; 2016-11-23)
PROC: 0LB50ZZ Excision of Right Lower Arm and Wrist Tendon, Open Approach (ICD-10-PCS; 2016-11-23)
PROC: 0X9J0ZZ Drainage of Right Hand, Open Approach (ICD-10-PCS; 2016-11-23)
DX: A41.9 Sepsis, unspecified organism (principal); L03.113 Cellulitis of right upper limb; N17.9 Acute kidney failure, unspecified; L02.413 Cutaneous abscess of right upper limb; S66.821A Laceration of other specified muscles, fascia and tendons at wrist and hand level, right hand, initial encounter; R01.1 Cardiac murmur, unspecified; S61.511D Laceration without foreign body of right wrist, subsequent encounter; M65.131 Other infective (teno)synovitis, right wrist; F14.10 Cocaine abuse, uncomplicated; F17.210 Nicotine dependence, cigarettes, uncomplicated; F25.0 Schizoaffective disorder, bipolar type; X78.1XXD Intentional self-harm by knife, subsequent encounter; Z91.19 Patient's noncompliance with other medical treatment and regimen
CPT/HCPCS: 73100; 76882; 80048; 80053; 80202; 80307; 81001; 83605; 85007; 85025; 85027; 85610; 85652; 85730; 86140; 86403; 87015; 87040; 87070; 87102; 87116; 87147; 87186; 87205; 87206; 93005; 96361; 96365; 96375; J2250; J2270; J2370; J2405; J2543; J3010; J3370; J7030; J7050; J7120

== ENCOUNTER 2016-11-29 09:01 | Emergency (ER) | payer MEDICARE, MEDICAID ==
[~2016-11-29] VITALS: Ht 190.5 cm; Wt 78.0 kg
[2016-11-29 09:02] VITALS: BP 96/65; PULSE 104; RESP 20; TEMP 98.8; O2SAT 99
[2016-11-29] MEDS ORDERED: SODIUM CHLOR 0.9% 1000 ML INJ 1,000 ML IV ONE (09:30)
[2016-11-29] MEDS ORDERED: VANCOMYCIN INJ 1,000 MG in SODIUM CHLOR 0.9% 250 ML INJ 250 ML IV ONE (09:30)
[2016-11-29] MEDS ORDERED: SULFAMETHOXAZOLE-TRIMETHOPRIM DS 800-160 MG TAB PO ONE (09:30)
--- NOTE | 2016-11-29 09:36 | PD ---
HPI Chief Complaint: Wound/Suture/Staple Re-Check Time Seen by Provider: 09:16 Travel History International Travel<30 days: No Contact w/Intl Traveler<30days: No Traveled to known affect area: No History of Present Illness HPI The patient is a 61-year-old male who presents to the emergency department for reevaluation of the right wrist wound. The patient states that he was recently admitted to the hospital for an infection of the right wrist. The patient underwent operative management by the orthopedic hand surgeon, Dr. Hunt. The patient had cultures obtained which grew group A a beta strep as well as pansensitive staph aureus. Apparently the patient had left the hospital to smoke and subsequently was discharged against medical research tech. The patient has not been taking any antibiotics. He does note that the swelling or redness of the right upper extremity has improved, but he still has limited range of motion of the right wrist secondary to pain. He denies any fever. He is a somewhat limited historian and has not followed up with his hand surgeon, Dr. Hunt. [facility] Past Medical History Blood Disorders: No Bipolar Disorder: Yes (TAKES LITHIUM) Anxiety: No (denies) Depression: No (denies, states frequent patient at [facility] in [place], [place]) Diminished Hearing: No Endocrine: No Glaucoma: No Genitourinary: No Headaches: No (See EMR) Hypertension: Yes Musculoskeletal: No (denies any diagnosed illnesses) Neurologic: No (denies all health problems) Psychiatric: Yes Reproductive: No Respiratory: No Past Surgical History AICD: No Arteriovenous Shunt: No Insulin Pump: No Joint Replacement: No Pacemaker: No Social History Alcohol Use: Yes (Occasionally) Tobacco Use: Yes (1 1/2 packs a day) Substance Use: Yes ( denies current use) Allergies-Medications (Allergen,Severity, Reaction): Coded Allergies: No Known Allergies (Verified , 11/29/16) Reported Meds & Prescriptions Reported Meds & Active Scripts Active Bacitracin Topical 500 Unit/Gm Oint 1 Applic TOPICAL BID Apply to wrist wound until well healed. Olanzapine 10 Mg Tab 20 Mg PO HS 15 Days Review of Systems Except as stated in HPI: all other systems reviewed are Neg General / Constitutional: No: Fever Musculoskeletal: Positive: Limited ROM, Edema, Pain Skin: Positive Other (as noted in history of present illness) Neurologic: No: Paresthesia, Sensory Disturbance Physical Exam Narrative GENERAL: A awake, alert, pleasant 61-year-old male who appears his stated age and is in no acute respiratory distress. SKIN: Focused skin assessment warm/dry. HEAD: Atraumatic. Normocephalic. EYES: No drainage noted. ENT: No nasal bleeding or discharge. Mucous membranes pink and moist. NECK: Trachea midline. No JVD. CARDIOVASCULAR: Regular, tachycardic with a heart rate 100. RESPIRATORY: No accessory muscle use. Clear to auscultation. Breath sounds equal bilaterally. GASTROINTESTINAL: Abdomen soft, non-tender, nondistended. MUSCULOSKELETAL: Dressing was removed from the right upper extremity. The patient has a transverse open wound over the distal one third of the right forearm. There is packing in place around the wound, no obvious drainage. He is able to extend and flex at the MCP, PIP, DIP with mild edema of the right hand and fingers of the right hand noted. Positive right radial pulse. NEUROLOGICAL: Awake and alert. No obvious cranial nerve deficits. Motor grossly within normal limits. Normal speech. PSYCHIATRIC: Appropriate mood and affect; insight and judgment normal. Data Data Last Documented VS Vital Signs Date Time Temp Pulse Resp B/P Pulse Ox O2 Delivery O2 Flow Rate FiO2 11/29/16 09:16 18 11/29/16 09:02 98.8 104 96/65 99 Room Air Orders Complete Blood Count With Diff (11/29/16 09:18) Basic Metabolic Panel (Bmp) (11/29/16 09:18) Lactic Acid (11/29/16 09:18) Sodium Chlor 0.9% 1000 Ml Inj (Ns 1000 M (11/29/16 09:30) Sulfamet-Trimeth Ds 800-160 Mg (Bactrim (11/29/16 09:30) Vancomycin Inj (Vancomycin Inj) (11/29/16 09:30) [facility] Medical Decision Making Medical Screen Exam Complete: Yes Emergency Medical Condition: Yes Medical Record Reviewed: Yes Differential Diagnosis Differential diagnosis includes wound reevaluation, cellulitis, sepsis, abscess , infected wound, noncompliance. Narrative Course IV and labs were ordered, however, patient refused. The patient was ordered vancomycin, however, he refused IV and IV medications. The patient then refused Bactrim. A call initially was placed to Dr. Hunt, however, the patient left without completing treatment. Diagnosis Primary Impression: Abscess of right forearm Additional Instructions: Follow-up with Dr. Hunt's previously directed. Take your medications as previously directed. Return if symptoms worsen or progress. Disposition: AGAINST MEDICAL ADVICE Condition: Stable Yan Salinas MD Nov 29, 2016 09:36
== END 2016-11-29 09:43 | disposition left against medical advice (07) ==
LOC: NEPD 09:01
DX: L02.413 Cutaneous abscess of right upper limb (principal); I10 Essential (primary) hypertension; F17.210 Nicotine dependence, cigarettes, uncomplicated; Z79.899 Other long term (current) drug therapy
CPT/HCPCS: 99281

== ENCOUNTER 2016-12-01 12:26 | Inpatient (IN) | payer MEDICARE, MEDICAID ==
[~2016-12-01] VITALS: Ht 190.5 cm; Wt 71.5 kg
[2016-12-01 12:28] VITALS: BP 134/84; PULSE 114; RESP 16; TEMP 98.5; O2SAT 99
--- NOTE | 2016-12-01 12:40 | PD ---
Physical Exam Date Seen by Provider: Dec 01, 2016 Time Seen by Provider: 12:38 Narrative 61 YOWM WITH R WRIST CELLULITIS AND ABSCESS. SEEN FOR THE SAME VS REVIEWED WAITING FOR BED PLACEMENT Data Data Last Documented VS Vital Signs Date Time Temp Pulse Resp B/P Pulse Ox O2 Delivery O2 Flow Rate FiO2 12/01/16 12:28 98.5 114 16 134/84 99 MDM Supervised Visit with HASEEB: Suresh Martinez Dec 01, 2016 12:39
[2016-12-01 15:54] VITALS: BP 124/77; PULSE 75; RESP 18; O2SAT 100
[2016-12-01] MEDS ORDERED: PIPERACIL-TAZO 3.375 GM PREMIX 50 ML IV ONE (16:15)
[2016-12-01] MEDS ORDERED: VANCOMYCIN INJ 1,100 MG in SODIUM CHLOR 0.9% 250 ML INJ 250 ML IV ONE (16:15)
--- NOTE | 2016-12-01 16:28 | PD ---
HPI Chief Complaint: Laceration/Skin Injury Time Seen by Provider: 15:46 Travel History International Travel<30 days: No Contact w/Intl Traveler<30days: No Traveled to known affect area: No History of Present Illness HPI Patient is a 61-year-old male who returns to emergency room for evaluation of a right wrist wound. Patient was admitted to the hospital on November 22, 2016 for diagnosis sepsis diffuse abscess of right forearm. Dr. Hunt with consult it from hand surgery, went to the OR for I&D on November 22, 2016. Patient had wound cultures which grew out group A beta strep as well as pansensitive staph aureus. Ultimately, patient left AGAINST MEDICAL ADVICE on November 27, 2016 as he wanted to go outside and smoke a cigarette. Reports that he was not discharged on any antibiotics as per hospital discharge note, patient left AMA prior to transition from IV antibiotics to oral antibiotics. Patient was seen in the ER again on 11/29/16 - at that time, left ama Patient reports that the would on his left wrist has opened up and is now draining pus. Reports that he is concerned for an infection as he is not on any antibiotics at this time. Patient reports "I want to stay now and get treated." Denies fever/chills. Reports pain and drainage to his right wrist PFSH Past Medical History Blood Disorders: No Bipolar Disorder: Yes (TAKES LITHIUM) Diabetes: No (See EMR) Diminished Hearing: No Endocrine: No Glaucoma: No Genitourinary: No Hypertension: Yes Psychiatric: Yes Reproductive: No Respiratory: No Tetanus Vaccination: < 5 Years Influenza Vaccination: No Past Surgical History Surgical History: No Previous Surgery AICD: No Arteriovenous Shunt: No Insulin Pump: No Joint Replacement: No Pacemaker: No Social History Alcohol Use: No Tobacco Use: Yes (1 1/2 packs a day) Substance Use: No Allergies-Medications (Allergen,Severity, Reaction): Coded Allergies: No Known Allergies (Verified , 12/01/16) Reported Meds & Prescriptions Reported Meds & Active Scripts Active Olanzapine 10 Mg Tab 20 Mg PO HS 15 Days Review of Systems General / Constitutional: No: Fever Eyes: No: Visual changes HENT: No: Headaches Cardiovascular: No: Chest Pain or Discomfort Respiratory: No: Shortness of Breath Gastrointestinal: No: Abdominal Pain Genitourinary: No: Dysuria Musculoskeletal: Positive: Other (drainage to right wrist), No: Pain Skin: No Rash Neurologic: No: Weakness Psychiatric: No: Depression Endocrine: No: Polydipsia Hematologic/Lymphatic: No: Easy Bruising Physical Exam Narrative GENERAL: mild distress SKIN: Focused skin assessment warm/dry. HEAD: Atraumatic. Normocephalic. EYES: Pupils equal and round. No scleral icterus. No injection or drainage. ENT: No nasal bleeding or discharge. Mucous membranes pink and moist. NECK: Trachea midline. No JVD. CARDIOVASCULAR: Regular rate and rhythm. No murmur appreciated. RESPIRATORY: No accessory muscle use. Clear to auscultation. Breath sounds equal bilaterally. GASTROINTESTINAL: Abdomen soft, non-tender, nondistended. Hepatic and splenic margins not palpable. MUSCULOSKELETAL:No clubbing. No cyanosis. No edema. patient with open wound to right wrist 4.5x1cm in size with wound dehiscence NEUROLOGICAL: Awake and alert. No obvious cranial nerve deficits. Motor grossly within normal limits. Normal speech. PSYCHIATRIC: Appropriate mood and affect; insight and judgment normal. Data Data Last Documented VS Vital Signs Date Time Temp Pulse Resp B/P Pulse Ox O2 Delivery O2 Flow Rate FiO2 12/01/16 15:54 75 18 124/77 100 Room Air 12/01/16 12:28 98.5 Orders Basic Metabolic Panel (Bmp) (12/01/16 16:03) Complete Blood Count With Diff (12/01/16 16:03) Blood Culture (12/01/16 16:03) Iv Access Insert/Monitor (12/01/16 16:03) Wound Care (12/01/16 16:03) Vancomycin Inj (Vancomycin Inj) (12/01/16 16:15) Wrist, Complete ([id number]) (12/01/16 ) Piperacil-Tazo 3.375 Gm Premix (Zosyn 3. (12/01/16 16:15) Drug Screen, Random Urine (12/01/16 16:09) Lactic Acid Sepsis Protocol (12/01/16 16:11) Admit Order (Ed Use Only) (12/01/16 17:07) Labs Laboratory Tests Test 12/01/16 16:15 White Blood Count 12.5 TH/MM3 Red Blood Count 3.85 MIL/MM3 Hemoglobin 12.2 GM/DL Hematocrit 37.3 % Mean Corpuscular Volume 97.0 FL Mean Corpuscular Hemoglobin 31.7 PG Mean Corpuscular Hemoglobin 32.6 % Concent Red Cell Distribution Width 15.6 % Platelet Count 353 TH/MM3 Mean Platelet Volume 8.2 FL Neutrophils (%) (Auto) 70.5 % Lymphocytes (%) (Auto) 20.2 % Monocytes (%) (Auto) 4.6 % Eosinophils (%) (Auto) 3.5 % Basophils (%) (Auto) 1.2 % Neutrophils # (Auto) 8.8 TH/MM3 Lymphocytes # (Auto) 2.5 TH/MM3 Monocytes # (Auto) 0.6 TH/MM3 Eosinophils # (Auto) 0.4 TH/MM3 Basophils # (Auto) 0.1 TH/MM3 CBC Comment DIFF FINAL Differential Comment Lactic Acid Level 1.6 mmol/L MDM Medical Decision Making Medical Screen Exam Complete: Yes Emergency Medical Condition: Yes Interpretation(s) Vital Signs Date Time Temp Pulse Resp B/P Pulse Ox O2 Delivery O2 Flow Rate FiO2 12/01/16 15:54 75 18 124/77 100 Room Air 12/01/16 15:50 80 18 12/01/16 12:28 98.5 114 16 134/84 99 Differential Diagnosis Differential includes sepsis, abscess to right forearm, wound dehiscence Narrative Course Patient is a 61-year-old male with history of right forearm abscess which was I& D by hand surgery, Dr. Hunt on November 22, 2016, left AGAINST MEDICAL ADVICE on November 27, 2016 return to the emergency room for admission to the hospital. Patient reports that his wrist wound opened up and now he has wound dehiscence. Reports that now he has purulent drainage from his right wrist wound. Patient denies fever/chills. He has not been on any antibiotics since his discharge. Plan to obtain blood cultures, lab work as well as lactic acid. Xray of wrist ordered. IV vanco ordered. Plan to readmit to family medicine service Patient left AMA from FP service on November 27, 2016 - case reviewed with Dr. Lancaster with FP - refuses to readmit to their service as he had left AMA and is a difficult patient. call made to medicine service case reviewed with Dr. Yost who accepts pt to service Diagnosis Primary Impression: Abscess of right forearm Admitting Information Admitting Physician Requests: Observation Nhi Snyder DO Dec 01, 2016 16:28
--- NOTE | 2016-12-01 16:49 | RADRPT ---
EXAM DATE/TIME: 12/01/2016 16:22 [facility] COMPARISON: No previous studies available for comparison. INDICATIONS : Laceration to right wrist. MEDICAL HISTORY : Hypertension. Bipolar disorder. Schizoaffective disorder. SURGICAL HISTORY : None. ENCOUNTER: Initial ACUITY: 4 - 6 days PAIN SCORE: 10/10 LOCATION: Right Wrist. FINDINGS: Three view examination of the right wrist demonstrates no fracture or malalignment. There is a small laceration and soft tissue swelling over the dorsum of the wrist. There is no radiopaque foreign body .. The carpal bones are in normal alignment. The joint spaces are maintained. Bony mineralization is normal. CONCLUSION: Mild soft tissue swelling and laceration with no radiopaque foreign body. Felton Polk MD on December 01, 2016 at 16:43 Board Certified Radiologist. This report was verified electronically.
[2016-12-01 16:51] LABS: AUTOMATED NEUTROPHIL # 8.8 TH/MM3 (1.8-7.7); BASOPHIL # 0.1 TH/MM3 (0-0.2); BASOPHIL % 1.2 % (0.0-2.0); EOSINOPHIL # 0.4 TH/MM3 (0-0.4); EOSINOPHIL % 3.5 % (0.0-4.0); HEMATOCRIT 37.3 % (39.0-51.0); HEMO FLAGS DIFF FINAL; LYMPH % 20.2 % (9.0-44.0); LYMPHOCYTE # 2.5 TH/MM3 (1.0-4.8); MEAN CORPUSCULAR HEMOGLOBIN 31.7 PG (27.0-34.0); MEAN CORPUSCULAR HGB CONC 32.6 % (32.0-36.0); MONO % 4.6 % (0.0-8.0); NEUT % 70.5 % (16.0-70.0); PLATELET COUNT 353 TH/MM3 (150-450); RED BLOOD COUNT 3.85 MIL/MM3 (4.50-5.90); RED CELL DISTRIBUTION WIDTH 15.6 % (11.6-17.2); WHITE BLOOD COUNT 12.5 TH/MM3 (4.0-11.0)
[2016-12-01] MEDS ORDERED: SODIUM CHLOR 0.45% 1000 ML INJ 1,000 ML IV SCH (17:12)
[2016-12-01] MEDS ORDERED: SODIUM CHLORIDE 0.9% FLUSH 10 ML FLUSH IV FLUSH PRN ×2 (17:15→19:30)
[2016-12-01 17:43] LABS: BICARBONATE 21.1 MEQ/L (21.0-32.0)
[2016-12-01 17:56] LABS: POTASSIUM 4.5 MEQ/L (3.5-5.1)
[2016-12-01 18:22] VITALS: BP 131/70; PULSE 85; RESP 18; O2SAT 96
--- NOTE | 2016-12-01 19:21 | HHI.HP ---
[facility] No Primary Care Physician Admission Diagnosis right sided forearm abscess Diagnoses: (1) Abscess of right forearm Diagnosis: Principal (2) Renal insufficiency Diagnosis: Principal (3) Bipolar disorder Diagnosis: Principal (4) Tobacco abuse Diagnosis: Principal Travel History International Travel<30 Days: No Contact w/Intl Traveler <30 Da: No Traveled to Known Affected Are: No History of Present Illness This is a 61-year-old male with a PMH of Bipolar Disorder, h/o Cocaine Abuse, Tobacco Abuse and Right Forearm Abscess who presented to the ER w/ complaints of worsening pain to right forearm. Recent admit to Family Practice from 11/22- for similar complaints, found to have right forearm abscess and significant cellulitis, s/p eval by Dr. Hunt w/ I&D 11/22/16, Wound Cult +Group A Strep, on Vanc/Zosyn while hospitalized, ultimately LEFT AMA on 11/27/16 because he wanted to go smoke. Returns now w/ ongoing symptoms. Admission refused by FP. Denies recent cocaine use, no h/o IVDU. On arrival, BP 134/84, HR 114, O2 sat 99% on RA, Afebrile. WBC 12.5, previously 8.7 on 11/27/16. Creatinine 1.72, previously 1.60 on 11/27/16. Lactic Acid normal. Urine Drug Screen negative. Wrist X-ray with mild soft tissue swelling and laceration, no radiopaque foreign body. S/p Blood Cultures, Vanc/Zosyn in ER. Review of Systems Except as stated in HPI: all other systems reviewed are Neg ROS: 14 point review of systems otherwise negative. Past Family Social History Past Medical History PMH: Bipolar Disorder, h/o Cocaine Abuse, Tobacco Abuse and Right Forearm Abscess Past Surgical History PAST SURGICAL HISTORY: None Allergies: Coded Allergies: No Known Allergies (Verified , 12/01/16) Family History PAST FAMILY HISTORY: Reviewed. No h/o DM or CAD Social History PAST SOCIAL HISTORY: Negative for alcohol. Smokes 1-2ppd. +Cocaine, no h/o IVDU. Physical Exam Vital Signs Vital Signs Date Time Temp Pulse Resp B/P Pulse Ox O2 Delivery O2 Flow Rate FiO2 12/01/16 18:22 85 18 131/70 96 Room Air 12/01/16 15:54 75 18 124/77 100 Room Air 12/01/16 15:50 80 18 12/01/16 12:28 98.5 114 16 134/84 99 Physical Exam PE: GENERAL: Middle-aged white male in no acute distress, eating dinner comfortably. HEENT: PERRLA, EOMI. No scleral icterus or conjunctival pallor. No lid lag or facial droop. CARDIOVASCULAR: Regular rate and rhythm. No obvious murmurs to auscultation. No chest tenderness to palpation. RESPIRATORY: No obvious rhonchi or wheezing. Clear to auscultation. Breath sounds equal bilaterally. GASTROINTESTINAL: Abdomen soft, non-tender, nondistended. BS normal. MUSCULOSKELETAL: Extremities without clubbing, cyanosis, or edema. No obvious deformities. Right forearm bandage in place, +wound dehiscence NEUROLOGICAL: Awake, alert and oriented x4. No focal neurologic deficits. Moving both upper and lower extremities spontaneously. Laboratory Laboratory Tests Test 12/01/16 12/01/16 16:15 17:55 White Blood Count 12.5 Red Blood Count 3.85 Hemoglobin 12.2 Hematocrit 37.3 Mean Corpuscular Volume 97.0 Mean Corpuscular Hemoglobin 31.7 Mean Corpuscular Hemoglobin 32.6 Concent Red Cell Distribution Width 15.6 Platelet Count 353 Mean Platelet Volume 8.2 Neutrophils (%) (Auto) 70.5 Lymphocytes (%) (Auto) 20.2 Monocytes (%) (Auto) 4.6 Eosinophils (%) (Auto) 3.5 Basophils (%) (Auto) 1.2 Neutrophils # (Auto) 8.8 Lymphocytes # (Auto) 2.5 Monocytes # (Auto) 0.6 Eosinophils # (Auto) 0.4 Basophils # (Auto) 0.1 CBC Comment DIFF FINAL Differential Comment Sodium Level 141 Potassium Level 4.5 Chloride Level 114 Carbon Dioxide Level 21.1 Anion Gap 6 Blood Urea Nitrogen 16 Creatinine 1.72 Estimat Glomerular Filtration 41 Rate Random Glucose 80 Lactic Acid Level 1.6 Calcium Level 8.0 Urine Opiates Screen NEG Urine Barbiturates Screen NEG Urine Amphetamines Screen NEG Urine Benzodiazepines Screen NEG Urine Cocaine Screen NEG Urine Cannabinoids Screen NEG Date/Time Procedure Status Source Growth 12/01/16 16:15 Aerobic Blood Culture Received Blood Peripheral Pending 12/01/16 16:15 Anaerobic Blood Culture Received Blood Peripheral Pending Result Diagram: 12/01/16 1615 12/01/16 1615 Assessment and Plan Problem List: (1) Abscess of right forearm ICD Code: L02.413 Status: Acute (2) Renal insufficiency ICD Code: N28.9 Status: Acute (3) Bipolar disorder ICD Code: F31.9 Status: Acute (4) Tobacco abuse ICD Code: Z72.0 Status: Acute Assessment and Plan A/P: 1. Right Forearm Abscess: recent admit for same on 11/22/16 s/p I&D by Dr. Hunt 11/22/16, s/p Vanc/Zosyn, wound cultures 11/22/16 positive for Group A Beta Strep, however LEFT AMA 11/27/16 without completion of antibiotic therapy. Returns now w/ ongoing symptoms. Afebrile. WBC 12.5. Wrist X-ray w/ soft tissue swelling, images reviewed by me. S/p Vanc/Zosyn in ER and Blood Cultures , follow up cultures, continue IV Abx, consult Dr. Hunt for further evaluation. 2. Renal Insufficiency: Acute on Chronic. Creatinine 1.72, producing 1.60 on 11/27/16. IVF, repeat labs in am 3. Bipolar Disorder: Stable. No acute issues. Resume home Olanzapine. 4. Tobacco Abuse: NicoDerm/Ativan as needed. 5. DVT Prophylaxis: SCD/Teds. 6. Social work for d/c planning as needed. 7. Case discussed w/ ER physician at length. Physician Certification 2 Midnight Certification Type: Admission for Inpatient Services Order for Inpatient Services The services are ordered in accordance with Medicare regulations or non- Medicare payer requirements, as applicable. In the case of services not specified as inpatient-only, they are appropriately provided as inpatient services in accordance with the 2-midnight benchmark. Estimated LOS (days): 2 days is the estimated time the patient will need to remain in the hospital, assuming treatment plan goals are met and no additional complications. Post-Hospital Plan: Not yet determined Meeta Alas MD Dec 01, 2016 19:21
[2016-12-01] MEDS ORDERED: MAGNESIUM HYDROXIDE SUSP 30 ML CUP PO PRN (19:30)
[2016-12-01] MEDS ORDERED: ONDANSETRON HCL 4 MG/2 ML VIAL IVP PRN (19:30)
[2016-12-01] MEDS ORDERED: LACTULOSE SYRUP 20 GM/30 ML CUP PO PRN (19:30)
[2016-12-01] MEDS ORDERED: SENNOSIDES 8.6 MG TAB PO PRN (19:30)
[2016-12-01] MEDS ORDERED: Vancomycin Consult Pharmacy 1 EA OTHER SCH (19:30)
[2016-12-01] MEDS ORDERED: ACETAMINOPHEN 325 MG TAB PO PRN (19:30)
[2016-12-01] MEDS ORDERED: BISACODYL 10 MG SUPP RECTAL PRN (19:30)
[2016-12-01] MEDS ORDERED: MORPHINE SULFATE 4 MG/ML INJ IV PRN (19:30)
[2016-12-01] MEDS: CEFEPIME INJ 1,000 MG in SODIUM CHLORIDE 0.9% INJ 100 ML IV SCH (20:56)
[2016-12-01] MEDS: SODIUM CHLOR 0.9% 1000 ML INJ 1,000 ML IV SCH (20:56)
[2016-12-01] MEDS: DOCUSATE SODIUM 50 MG/SENNA 8.6 MG TAB PO SCH (20:57)
[2016-12-01] MEDS: SODIUM CHLORIDE 0.9% FLUSH 10 ML FLUSH IV FLUSH SCH (20:57)
[2016-12-01] MEDS ORDERED: SODIUM CHLORIDE 0.9% FLUSH 10 ML FLUSH IV FLUSH SCH (21:00)
[2016-12-01 21:25] VITALS: BP 127/76; PULSE 71; RESP 18; TEMP 96; O2SAT 100
--- NOTE | 2016-12-01 22:29 | MB ---
cc: HUI SERRATO DATE OF CONSULTATION 12/01/16 REASON FOR CONSULTATION Right wrist infection. HISTORY OF PRESENT ILLNESS The patient is a 61-year-old male presented to the ED with open right wrist wound. The patient was seen by Dr. Hunt for infection of the right wrist dorsal aspect. He underwent incision and drainage and extensor tenosynovectomy on November 22, 2016. The patient signed out AMA. The patient states he bumped onto the finger and apparently the wound opened up. He was seen at [facility]. He was put on oral antibiotics and the patient was seen at [facility] today. Denies any fever. Complains of open wound and mild drainage. He also complains of mild numbness over the dorsal aspect of the hand. PAST MEDICAL HISTORY His past medical and surgical history are reviewed. Surgical history is significant for incision and drainage and extensor tenosynovectomy right wrist on November 22, 2016. PHYSICAL EXAMINATION GENERAL: The patient is alert, oriented x3. DIRECTED EXAMINATION: Examination of right upper extremity reveals wound dehiscence over the dorsal aspect of the wrist, measures about 4-5 cm in length and about 3 cm wide. There is evidence of inflammatory necrotic tissue within the wound. Part of the wound still has sutures on the radial and proximal aspect. Mild surrounding swelling noted. Induration and mild redness noted around the region. No evidence of purulent drainage noted. The patient is able to actively extend the thumb and fingers. The patient also able to actively flex and extend the wrist which is associated with mild pain at terminal degrees. He is able to make a full fist with the fingers. He has intact distal circulation. Decreased sensation noted over the dorsal aspect of the hand. LABORATORY DATA His white count was reviewed. He has a white count of 12.5 with neutrophil shift of 70%. IMAGING STUDIES X-rays of the right wrist shows evidence of mild soft tissue swelling on the dorsal aspect. No evidence of radiopaque foreign body. ASSESSMENT A 61-year-old male status post incision and drainage and extensor tenosynovectomy. Nine days postop with wound dehiscence. PLAN Will be to keep the patient n.p.o. Will have a discussion with Dr. Hunt regarding need for further surgical intervention. Continue with IV antibiotics. New dry dressing was applied. The patient is advised to keep the part elevated. Hand surgery will follow. MD VERONICA Kaufman /8:49 PM /10:10 PM [facility]IL HOSPITALDebbie
[2016-12-01] MEDS: NICOTINE 21 MG/24 HR PATCH T-DERMAL PRN (22:49)
[2016-12-02] VITALS: BP 118/59; PULSE 91; RESP 18; TEMP 98.3; O2SAT 96
[2016-12-02 04:00] VITALS: BP 127/69; PULSE 90; RESP 18; O2SAT 100
[2016-12-02] MEDS: SODIUM CHLOR 0.9% 1000 ML INJ 1,000 ML IV SCH ×2 (04:46→14:33)
[2016-12-02] MEDS: DOCUSATE SODIUM 50 MG/SENNA 8.6 MG TAB PO SCH ×2 (07:56→21:06)
[2016-12-02] MEDS: CEFEPIME INJ 1,000 MG in SODIUM CHLORIDE 0.9% INJ 100 ML IV SCH ×2 (07:56→21:06)
[2016-12-02] MEDS: SODIUM CHLORIDE 0.9% FLUSH 10 ML FLUSH IV FLUSH SCH ×2 (07:56→21:06)
[2016-12-02 08:36] VITALS: BP 173/94; PULSE 94; RESP 18; TEMP 97.3; O2SAT 96
[2016-12-02] MEDS ORDERED: ONDANSETRON HCL 4 MG/2 ML VIAL IV PUSH ONE (12:00)
[2016-12-02] MEDS ORDERED: PROPOFOL 200 MG/20 ML AMP IV ONE (12:00)
[2016-12-02 12:12] VITALS: BP 119/78; PULSE 98; RESP 18; TEMP 98.2; O2SAT 96
[2016-12-02] MEDS ORDERED: CHLORHEXIDINE GLUCONATE 2 % 1 PACK (2 CLOTHS) TOPICAL PRN (12:45)
[2016-12-02] MEDS ORDERED: INSULIN HUMAN REGULAR 1,000 UNITS/10 ML VIAL SQ PRN (12:45)
[2016-12-02] MEDS ORDERED: LACTATED RINGER'S 1000 ML IV PRN (12:45)
[2016-12-02] MEDS ORDERED: SODIUM CHLORID 0.9% 500 ML IV PRN (12:45)
[2016-12-02] MEDS ORDERED: POVIDONE IODINE 5% (ANTISEPSIS KIT) 4 APPLICATIONS EACH NARE PRN (12:45)
[2016-12-02] MEDS ORDERED: METOPROLOL TARTRATE 25 MG TAB PO PRN (12:45)
[2016-12-02 12:47] LABS: ALKALINE PHOSPHATASE 90 U/L (45-117); ALT (GPT) 15 U/L (12-78); ANION GAP 5 MEQ/L (5-15); AST (GOT) 12 U/L (15-37); BLOOD UREA NITROGEN 18 MG/DL (7-18); CHLORIDE 126 MEQ/L (98-107); GLOMERULAR FILTRATION RATE 43 ML/MIN (>89); POTASSIUM 4.4 MEQ/L (3.5-5.1); SODIUM (NA) 153 MEQ/L (136-145); TOTAL BILIRUBIN ADULT 0.3 MG/DL (0.2-1.0)
[2016-12-02 14:07] LABS: AUTOMATED NEUTROPHIL # 7.4 TH/MM3 (1.8-7.7); BASOPHIL # 0.1 TH/MM3 (0-0.2); BASOPHIL % 1.1 % (0.0-2.0); EOSINOPHIL # 0.3 TH/MM3 (0-0.4); EOSINOPHIL % 3.2 % (0.0-4.0); HEMATOCRIT 38.5 % (39.0-51.0); HEMO FLAGS DIFF FINAL; LYMPHOCYTE # 1.6 TH/MM3 (1.0-4.8); MEAN CELL VOLUME 94.4 FL (80.0-100.0); MEAN CORPUSCULAR HEMOGLOBIN 31.3 PG (27.0-34.0); MEAN CORPUSCULAR HGB CONC 33.2 % (32.0-36.0); MONO % 4.3 % (0.0-8.0); NEUT % 75.4 % (16.0-70.0); PLATELET COUNT 390 TH/MM3 (150-450); RED BLOOD COUNT 4.08 MIL/MM3 (4.50-5.90); RED CELL DISTRIBUTION WIDTH 15.1 % (11.6-17.2); WHITE BLOOD COUNT 9.8 TH/MM3 (4.0-11.0)
[2016-12-02] MEDS: VANCOMYCIN 1,000 MG/NS 250 ML IV SCH ×2 (16:41)
[2016-12-02] MEDS ORDERED: fentaNYL CITRATE 250 MCG/5 ML AMP ONE (16:56)
[2016-12-02] MEDS ORDERED: ONDANSETRON HCL 4 MG/2 ML VIAL ONE (16:57)
[2016-12-02] MEDS ORDERED: ceFAZolin INJ 1,000 MG VIAL ONE (17:39)
[2016-12-02] MEDS ORDERED: LIDOCAINE HCL 2% 50 ML VIAL ONE (17:40)
[2016-12-02] MEDS ORDERED: DO NOT ADM ANY ANTICOAGULANT DRUGS PRN (18:26)
[2016-12-02 18:45] VITALS: BP 135/74; PULSE 92; RESP 18; TEMP 97.6; O2SAT 96
--- NOTE | 2016-12-02 18:58 | HHI.PR ---
Subjective Remarks No acute events reported earlier today, once the patient's room however he was not there as he was undergoing surgery. No fevers noted today, chart reviewed, still on antibiotics, sodium jump was noted, wonder if this is an error, we'll repeat an cut down fluid rate if high Objective Vital Signs Date Time Temp Pulse Resp B/P Pulse Ox O2 Delivery O2 Flow Rate FiO2 12/02/16 18:30 113 18 95/54 100 Room Air 12/02/16 18:27 98.2 104 21 116/69 99 Room Air 12/02/16 12:12 98.2 98 18 119/78 96 12/02/16 08:36 97.3 94 18 173/94 96 12/02/16 04:00 90 18 127/69 100 12/02/16 00:00 98.3 91 18 118/59 96 12/01/16 21:25 96.0 71 18 127/76 100 I/O 12/01/16 12/01/16 12/01/16 12/02/16 12/02/16 12/02/16 06:59 14:59 22:59 06:59 14:59 22:59 Intake Total 500 ml Output Total 700 ml 1800 ml 1400 ml 10 ml Balance -700 ml -1800 ml -1400 ml 490 ml Intake Other 500 ml Output Urine Total 700 ml 1800 ml 1400 ml Estimated Blood Loss 10 ml Result Diagram: 12/02/16 1024 12/02/16 1024 Shaun Yost MD Dec 02, 2016 18:58
[2016-12-02 20:00] VITALS: BP 130/57; PULSE 73; RESP 18; TEMP 97.5; O2SAT 95
--- NOTE | 2016-12-02 20:23 | PD.ORT.PN ---
Subjective Subjective Remarks 61yM s/p I&D self inflicted laceration right wrist 11/22 cultures + Staph & Strep who left [facility] without antibiotics represented to [place] last night for wound dehiscence. Admitted for IV antibiotics and evaluation. Patient reports significant improvement in swelling since last visit. States that he struck the right wrist on an object and then the wound opened. Denies any paresthesias. See Dr Blackwood's note for evaluation 12/01. Denies any purulence from wound. Objective Vitals Vital Signs Date Time Temp Pulse Resp B/P Pulse Ox O2 Delivery O2 Flow Rate FiO2 12/02/16 18:45 97.6 92 18 135/74 96 12/02/16 18:30 113 18 95/54 100 Room Air 12/02/16 18:27 98.2 104 21 116/69 99 Room Air 12/02/16 12:12 98.2 98 18 119/78 96 12/02/16 08:36 97.3 94 18 173/94 96 12/02/16 04:00 90 18 127/69 100 12/02/16 00:00 98.3 91 18 118/59 96 12/01/16 21:25 96.0 71 18 127/76 100 I/O 12/01/16 12/01/16 12/01/16 12/02/16 12/02/16 12/02/16 07:00 15:00 23:00 07:00 15:00 23:00 Intake Total 500 ml Output Total 700 ml 1800 ml 1400 ml 10 ml Balance -700 ml -1800 ml -1400 ml 490 ml Intake Other 500 ml Output Urine Total 700 ml 1800 ml 1400 ml Estimated Blood Loss 10 ml Result Diagram: 12/02/16 1024 12/02/16 1024 Objective Remarks Splint in place, <2 sec capillary refill fingers right hand, sitlt m/u/r, function intact fds/fdp all fingers Assessment & Plan Assessment and Plan 61yM s/p I&D right wrist extensor tendons 11/22 and subsequently patient left hospital AMA, now POD0 s/p repeat I&D right wrist & secondary closure -Prior Cultures + Staph Aureus and Group A Step, Ab per primary team, WBC decreased to 9.8. Discussed with patient importance of compliance with antibiotics. No significant purulence intraoperative today but repeat culture sent. Edema of EPL intraoperatively -Splint placed and wound closed. Continue Antibiotics per primary team. Splint change next week. Then possible suture removal in 2 weeks Johanne Hunt MD Dec 02, 2016 20:23
[2016-12-02] MEDS: OLANZapine 10 MG TAB PO SCH (21:06)
[2016-12-03] VITALS (8 sets, daily range): BP systolic 96–137; BP diastolic 59–77; PULSE 77–99; RESP 18–20; TEMP 97.8–98.4; O2SAT 93–100
[2016-12-03] MEDS: SODIUM CHLOR 0.9% 1000 ML INJ 1,000 ML IV SCH ×4 (01:17→20:31)
[2016-12-03] MEDS: DOCUSATE SODIUM 50 MG/SENNA 8.6 MG TAB PO SCH ×2 (08:28→20:30)
[2016-12-03] MEDS: ACETAMINOPHEN/HYDROcodone 325 MG/5 MG TAB PO PRN ×2 (08:29→20:30)
[2016-12-03] MEDS: CEFEPIME INJ 1,000 MG in SODIUM CHLORIDE 0.9% INJ 100 ML IV SCH ×2 (08:29→20:30)
[2016-12-03] MEDS: SODIUM CHLORIDE 0.9% FLUSH 10 ML FLUSH IV FLUSH SCH ×2 (08:29→20:30)
[2016-12-03 10:07] LABS: BICARBONATE 20.6 MEQ/L (21.0-32.0); POTASSIUM 4.6 MEQ/L (3.5-5.1)
[2016-12-03] MEDS ORDERED: SODIUM CHLORID 0.9% 500 ML INJ 500 ML IV ONE (17:15)
--- NOTE | 2016-12-03 17:46 | MP ---
cc: JOHANNE HUNT DATE OF SURGERY: 12/02/2016. PREOPERATIVE DIAGNOSIS: 1. Open wound right wrist status post prior incision and drainage. 2. abscess right wrist. POSTOPERATIVE DIAGNOSIS: 1. Open wound right wrist status post prior incision and drainage. 2. abscess right wrist. OPERATIVE PROCEDURE PERFORMED: 1. Irrigation and debridement open wound right wrist. 2. Secondary closure wound dehiscence right wrist. SURGEON: Dr. Johanne Hunt. ANESTHESIA: General and local. TOURNIQUET TIME: Twenty-nine (29) minutes at 250 mmHg. SPECIMEN: Culture. INDICATIONS FOR THE PROCEDURE: Neftaly Lr is a 61-year-old male with a history of schizophrenia. I performed incision and drainage of a significant tenosynovitis and abscess over the right wrist on 11/22/2016. The patient subsequently left the hospital against medical advice without his antibiotics. He re-presented to the [facility] [facility] on 12/01/2016 and was noted to have dehiscence of the wound. The patient was admitted for antibiotics and consultation. I recommended repeat irrigation and debridement of the wound, secondary closure, possible VAC and he elected to proceed. The risks were explained but not limited to wound complications, infection, sepsis, need for additional surgeries, stiffness, pain, rupture of the tendon due to the infection, and the patient elected to proceed. DESCRIPTION OF THE PROCEDURE IN DETAIL: The patient was identified in the preoperative holding area and the correct extremity was marked. The patient was taken to the operating room where anesthesia was induced. The right upper extremity was prepped and draped in the normal sterile fashion. The prior sutures on the radial aspect of the wrist were removed. A culture was sent. The tourniquet was inflated to 250 mmHg for 29 minutes. Three liters of antibiotic saline was irrigated through the wrist. Granulation tissue was debrided. There was some softening of the extensor pollicis longus but the tendons were intact of all the compartments. The tourniquet was released. The wound was closed in a two layer closure using a 3-0 Monocryl and 4-0 nylon. The patient was then placed in a volar wrist splint. Approximately 10 mL of 2% lidocaine with no epinephrine was used for local anesthesia of the wrist. The patient is to remain in the hospital on IV antibiotics. It was discussed at length with the patient the importance of compliance with antibiotics to decrease the chance of any problems with the tendons including tendon rupture requiring possible tendon repair and tendon transfer. The patient states that he will try to be compliant but he may have to leave against medical advice again as he uses tobacco daily. Again it was advised for the patient to remain in the hospital on IV antibiotics. MD CHRIS Puga/RYLAND /8:24 PM /5:32 PM MTDDebbie
[2016-12-03] MEDS: VANCOMYCIN 1,000 MG/NS 250 ML IV SCH ×2 (17:50)
--- NOTE | 2016-12-03 18:09 | HHI.PR ---
Subjective Remarks No acute events reported earlier today. Pt says he can move his thumb just a little, moves the rest of his fingers better. POD 1, denies any worsening hand pain since operation Objective Vital Signs Date Time Temp Pulse Resp B/P Pulse Ox O2 Delivery O2 Flow Rate FiO2 12/03/16 17:19 98.0 82 20 107/68 100 12/03/16 14:03 100 21 12/03/16 12:19 97.8 78 20 96/59 96 12/03/16 08:42 97.8 80 20 137/70 99 12/03/16 06:51 94 12/03/16 04:00 98.2 99 18 121/73 93 12/03/16 00:00 98.0 98 18 129/77 97 12/02/16 20:00 97.5 73 18 130/57 95 12/02/16 18:45 97.6 92 18 135/74 96 12/02/16 18:30 113 18 95/54 100 Room Air 12/02/16 18:27 98.2 104 21 116/69 99 Room Air I/O 12/02/16 12/02/16 12/02/16 12/03/16 12/03/16 12/03/16 07:00 15:00 23:00 07:00 15:00 23:00 Intake Total 500 ml 1139 ml Output Total 1800 ml 1400 ml 10 ml 2300 ml 1525 ml Balance -1800 ml -1400 ml 490 ml -2300 ml -386 ml Intake Oral 720 ml IV Total 419 ml Other 500 ml Output Urine Total 1800 ml 1400 ml 2300 ml 1525 ml Estimated Blood Loss 10 ml # Voids 2 Result Diagram: 12/02/16 1024 12/03/16 0847 Imaging Last Impressions Wrist X-Ray 12/01/16 0000 Signed Impressions: Service Date/Time: November 16:22 - CONCLUSION: Mild soft tissue swelling and laceration with no radiopaque foreign body. Felton Polk MD Objective Remarks GENERAL: Resting in bed comfortably CARDIOVASCULAR: Regular rate and rhythm without murmurs, gallops, or rubs. RESPIRATORY: Breath sounds equal and clear bilaterally. Unlabored breathing MUSCULOSKELETAL: Right hand and postop dressing, can move all fingers including thumb A/P Assessment and Plan recent admit for same on 11/22/16 s/p I&D by Dr. Hunt 11/22/16, s/p Vanc/Zosyn, wound cultures 11/22/16 positive for Group A Beta Strep, however LEFT AMA 11/27/16 without completion of antibiotic therapy. Returns now w/ ongoing symptoms. Afebrile. WBC 12l. Wrist X-ray w/ soft tissue swelling, images reviewed by me. S/p Vanc/Zosyn in ER and Blood Cultures, follow up cultures, continue IV Abx, consult Dr. Hunt for further evaluation. A/P: 1. Right Forearm Abscess: POD 1 debridement. continue vanc and cefepime. wbc improving. 2. acute asymptomatic hyponatremia - cause unclear as to why sodium took a substantial jump in the last 36 hours, is more stable today at 146 after fluids were discontinued. Repeat level. 2. Renal Insufficiency: CKD, monitor 3. Bipolar Disorder: Stable. No acute issues. home Olanzapine. 4. Tobacco Abuse: NicoDerm/Ativan as needed. 5. DVT Prophylaxis: SCD/Teds. Possible discharge in next 48 hours. Shaun Yost MD Dec 03, 2016 18:09
[2016-12-03] MEDS: OLANZapine 10 MG TAB PO SCH (20:29)
[2016-12-04 00:30] VITALS: BP 115/77; PULSE 75; RESP 16; TEMP 97.9; O2SAT 97
[2016-12-04 04:30] VITALS: BP 142/75; PULSE 71; RESP 16; TEMP 97.6; O2SAT 97
[2016-12-04 05:03] LABS: AUTOMATED NEUTROPHIL # 5.4 TH/MM3 (1.8-7.7); BASOPHIL # 0.1 TH/MM3 (0-0.2); BASOPHIL % 1.2 % (0.0-2.0); EOSINOPHIL # 0.3 TH/MM3 (0-0.4); EOSINOPHIL % 3.3 % (0.0-4.0); HEMATOCRIT 36.3 % (39.0-51.0); HEMO FLAGS DIFF FINAL; LYMPH % 27.9 % (9.0-44.0); LYMPHOCYTE # 2.5 TH/MM3 (1.0-4.8); MEAN CELL VOLUME 94.6 FL (80.0-100.0); MEAN CORPUSCULAR HEMOGLOBIN 30.8 PG (27.0-34.0); MEAN CORPUSCULAR HGB CONC 32.6 % (32.0-36.0); MONO % 6.5 % (0.0-8.0); NEUT % 61.1 % (16.0-70.0); PLATELET COUNT 296 TH/MM3 (150-450); RED BLOOD COUNT 3.84 MIL/MM3 (4.50-5.90); RED CELL DISTRIBUTION WIDTH 15.2 % (11.6-17.2); WHITE BLOOD COUNT 8.8 TH/MM3 (4.0-11.0)
[2016-12-04 05:20] LABS: BICARBONATE 20.3 MEQ/L (21.0-32.0); POTASSIUM 4.3 MEQ/L (3.5-5.1)
[2016-12-04] MEDS: SODIUM CHLOR 0.9% 1000 ML INJ 1,000 ML IV SCH ×2 (06:37→17:37)
[2016-12-04] MEDS: DOCUSATE SODIUM 50 MG/SENNA 8.6 MG TAB PO SCH ×2 (07:56→20:12)
[2016-12-04 07:57] VITALS: BP 146/78; PULSE 64; RESP 20; TEMP 97.5; O2SAT 100
[2016-12-04] MEDS: SODIUM CHLORIDE 0.9% FLUSH 10 ML FLUSH IV FLUSH SCH ×2 (07:57→20:12)
[2016-12-04] MEDS: CEFEPIME INJ 1,000 MG in SODIUM CHLORIDE 0.9% INJ 100 ML IV SCH ×2 (07:57→20:12)
[2016-12-04 12:00] VITALS: BP 142/79; PULSE 86; RESP 20; TEMP 98.3; O2SAT 100
[2016-12-04] MEDS: NICOTINE 21 MG/24 HR PATCH T-DERMAL PRN (13:08)
[2016-12-04 16:19] VITALS: BP 99/63; PULSE 83; RESP 20; TEMP 97.9; O2SAT 100
--- NOTE | 2016-12-04 16:44 | HHI.PR ---
Subjective Remarks No acute events reported overnight. denies any worsening hand pain Objective Vital Signs Date Time Temp Pulse Resp B/P (MAP) Pulse Ox O2 Delivery O2 Flow Rate FiO2 12/04/16 16:19 97.9 83 20 99/63 (75) 100 12/04/16 12:00 98.3 86 20 142/79 (100) 100 12/04/16 07:57 97.5 64 20 146/78 (100) 100 12/04/16 04:30 97.6 71 16 142/75 (97) 97 12/04/16 00:30 97.9 75 16 115/77 (90) 97 12/03/16 20:00 98.4 77 20 130/70 (90) 100 12/03/16 17:19 98.0 82 20 107/68 (81) 100 I/O 12/03/16 12/03/16 12/03/16 12/04/16 12/04/16 12/04/16 07:00 15:00 23:00 07:00 15:00 23:00 Intake Total 1139 ml 1251 ml 240 ml 748 ml 960 ml Output Total 2300 ml 1525 ml 1000 ml 2000 ml 1600 ml 1750 ml Balance -2300 ml -386 ml 251 ml -1760 ml -852 ml -790 ml Intake Oral 720 ml 280 ml 240 ml 960 ml IV Total 419 ml 971 ml 748 ml Output Urine Total 2300 ml 1525 ml 1000 ml 2000 ml 1600 ml 1750 ml # Voids 2 # Bowel Movements 0 1 1 Result Diagram: 12/04/16 0404 12/04/16 0404 Objective Remarks GENERAL: Resting in bed comfortably RESPIRATORY: B Unlabored breathing MUSCULOSKELETAL: Right hand and postop dressing, can move all fingers including thumb, no signs of necrosis over fingertips or compartment syndrome A/P Assessment and Plan recent admit for same on 11/22/16 s/p I&D by Dr. Hunt 11/22/16, s/p Vanc/Zosyn, wound cultures 11/22/16 positive for Group A Beta Strep, however LEFT AMA 11/27/16 without completion of antibiotic therapy. Returns now w/ ongoing symptoms. Afebrile. WBC 12l. Wrist X-ray w/ soft tissue swelling, images reviewed by me. S/p Vanc/Zosyn in ER and Blood Cultures, follow up cultures, continue IV Abx, consult Dr. Hunt for further evaluation. A/P: 1. Right Forearm Abscess: POD 2 debridement. continue vanc and cefepime. anticipate transition to orals tomorrow with possible discharge if cleared by hand surgery. 2. acute asymptomatic hyponatremia - unclear cause; stable currently 2. Renal Insufficiency: CKD, 3. Bipolar Disorder: Stable. No acute issues. home Olanzapine. 4. Tobacco Abuse: NicoDerm/Ativan as needed. 5. DVT Prophylaxis: SCD/Teds. Possible discharge in next 24 hours. Shaun Yost MD Dec 04, 2016 16:44
[2016-12-04] MEDS ORDERED: PHARMACY ORDERED LAB ONE (16:45)
[2016-12-04] MEDS: VANCOMYCIN 1,000 MG/NS 250 ML IV SCH ×2 (17:36)
[2016-12-04 20:00] VITALS: BP 124/70; PULSE 92; RESP 17; TEMP 98.5; O2SAT 100
[2016-12-04] MEDS: OLANZapine 10 MG TAB PO SCH (20:12)
[2016-12-04] MEDS: ACETAMINOPHEN/HYDROcodone 325 MG/5 MG TAB PO PRN (20:13)
--- NOTE | 2016-12-04 21:27 | PD.ORT.PN ---
Subjective Subjective Remarks 61yM s/p I&D self inflicted laceration right wrist 11/22 cultures + Staph & Strep who left [facility] without antibiotics represented to [place] for wound dehiscence 12/01. Patient reports he is comfortable status post wound closure. Denies paresthesias. Is anxious to go home. Objective Vitals Vital Signs Date Time Temp Pulse Resp B/P (MAP) Pulse Ox O2 Delivery O2 Flow Rate FiO2 12/04/16 20:00 98.5 92 17 124/70 (88) 100 12/04/16 16:19 97.9 83 20 99/63 (75) 100 12/04/16 12:00 98.3 86 20 142/79 (100) 100 12/04/16 07:57 97.5 64 20 146/78 (100) 100 12/04/16 04:30 97.6 71 16 142/75 (97) 97 12/04/16 00:30 97.9 75 16 115/77 (90) 97 I/O 12/03/16 12/03/16 12/03/16 12/04/16 12/04/16 12/04/16 07:00 15:00 23:00 07:00 15:00 23:00 Intake Total 1139 ml 1251 ml 240 ml 748 ml 960 ml Output Total 2300 ml 1525 ml 1000 ml 2000 ml 1600 ml 1750 ml Balance -2300 ml -386 ml 251 ml -1760 ml -852 ml -790 ml Intake Oral 720 ml 280 ml 240 ml 960 ml IV Total 419 ml 971 ml 748 ml Output Urine Total 2300 ml 1525 ml 1000 ml 2000 ml 1600 ml 1750 ml # Voids 2 # Bowel Movements 0 1 1 Result Diagram: 12/04/16 0404 12/04/16 0404 Objective Remarks Dressing changed. Incision c/d/i. No purulence. Good ROM fingers, sitlt mu/r, 2 + radial pulse Assessment & Plan Assessment and Plan 61yM s/p I&D right wrist extensor tendons 11/22 and subsequently patient left hospital AMA, now POD2 s/p repeat I&D right wrist & secondary closure -Prior Cultures + Staph Aureus and Group A Step, Okay to discharge on oral antibiotics per primary team -Splint changed. Followup 2 weeks for suture removal. Johanne Hunt MD Dec 04, 2016 21:27
[2016-12-05 00:40] VITALS: BP 115/71; PULSE 100; RESP 17; TEMP 97.6; O2SAT 98
[2016-12-05] MEDS: SODIUM CHLOR 0.9% 1000 ML INJ 1,000 ML IV SCH ×2 (03:02→13:17)
[2016-12-05 04:30] VITALS: BP 133/88; PULSE 86; RESP 17; TEMP 98.2; O2SAT 100
[2016-12-05] MEDS: SODIUM CHLORIDE 0.9% FLUSH 10 ML FLUSH IV FLUSH SCH (07:58)
[2016-12-05] MEDS: DOCUSATE SODIUM 50 MG/SENNA 8.6 MG TAB PO SCH (07:58)
[2016-12-05] MEDS: CEFEPIME INJ 1,000 MG in SODIUM CHLORIDE 0.9% INJ 100 ML IV SCH (07:58)
[2016-12-05 08:21] VITALS: BP 143/89; PULSE 80; RESP 20; TEMP 97.9; O2SAT 100
[2016-12-05 12:27] VITALS: BP 117/82; PULSE 82; RESP 20; TEMP 98.3; O2SAT 100
--- NOTE | 2016-12-05 15:34 | HHI.DS ---
Discharge Summary Admission Date Dec 01, 2016 at 19:20 Discharge Date: Dec 05, 2016 Admitting Diagnosis right sided forearm abscess (1) Abscess of right forearm ICD Code: L02.413 - Cutaneous abscess of right upper limb Status: Acute (2) Renal insufficiency ICD Code: N28.9 - Disorder of kidney and ureter, unspecified Status: Acute (3) Bipolar disorder ICD Code: F31.9 - Bipolar disorder, unspecified Status: Acute (4) Tobacco abuse ICD Code: Z72.0 - Tobacco use Status: Acute Brief History - From Admission This is a 61-year-old male with a PMH of Bipolar Disorder, h/o Cocaine Abuse, Tobacco Abuse and Right Forearm Abscess who presented to the ER w/ complaints of worsening pain to right forearm. Recent admit to Family Practice from 11/22- for similar complaints, found to have right forearm abscess and significant cellulitis, s/p eval by Dr. Hunt w/ I&D 11/22/16, Wound Cult +Group A Strep, on Vanc/Zosyn while hospitalized, ultimately LEFT AMA on 11/27/16 because he wanted to go smoke. Returns now w/ ongoing symptoms. Admission refused by FP. Denies recent cocaine use, no h/o IVDU. On arrival, BP 134/84, HR 114, O2 sat 99% on RA, Afebrile. WBC 12.5, previously 8.7 on 11/27/16. Creatinine 1.72, previously 1.60 on 11/27/16. Lactic Acid normal. Urine Drug Screen negative. Wrist X-ray with mild soft tissue swelling and laceration, no radiopaque foreign body. S/p Blood Cultures, Vanc/Zosyn in ER. CBC/BMP: 12/04/16 0404 12/04/16 0404 Significant Findings Laboratory Tests Test 12/03/16 08:47 12/04/16 04:04 12/04/16 16:45 Blood Urea Nitrogen 19 MG/DL (7-18) Creatinine 1.85 MG/DL (0.60-1.30) 1.71 MG/DL (0.60-1.30) Calcium Level 8.3 MG/DL (8.5-10.1) 8.3 MG/DL (8.5-10.1) Sodium Level 146 MEQ/L (136-145) 147 MEQ/L (136-145) Chloride Level 119 MEQ/L (98-107) 120 MEQ/L (98-107) Carbon Dioxide Level 20.6 MEQ/L (21.0-32.0) 20.3 MEQ/L (21.0-32.0) Estimat Glomerular Filtration Rate 37 ML/MIN (>89) 41 ML/MIN (>89) Red Blood Count 3.84 MIL/MM3 (4.50-5.90) Hemoglobin 11.8 GM/DL (13.0-17.0) Hematocrit 36.3 % (39.0-51.0) Pt Condition on Discharge: Good Discharge Disposition: Discharge Home Discharge Time: > 30 minutes Shaun Yost MD Dec 05, 2016 15:34
--- NOTE | 2016-12-05 15:35 | HHI.DCPOC ---
Discharge Care Plan Diagnosis: (1) Abscess of right forearm Additional Problems right forearm abscess Goals to Promote Your Health * To prevent worsening of your condition and complications * To maintain your health at the optimal level Directions to Meet Your Goals Take your medications as prescribed Follow your dietary instruction Follow activity as directed Keep your appointments as scheduled Take your immunizations and boosters as scheduled If your symptoms worsen call your PCP, if no PCP go to Urgent Care Center or Emergency Room Smoking is Dangerous to Your Health. Avoid second hand smoke Call the 24-hour hour crisis hotline for domestic abuse at Shaun Yost MD Dec 05, 2016 15:35
[2016-12-05] MEDS ORDERED: CLIN1CAP6 PO (15:42)
[2016-12-05] MEDS ORDERED: VANCOMYCIN INJ 1,250 MG in SODIUM CHLOR 0.9% 250 ML INJ 250 ML IV SCH (17:00)
--- NOTE | 2016-12-05 19:49 | HHI.DS ---
Discharge Summary Admission Date Dec 01, 2016 at 19:20 Discharge Date: Dec 05, 2016 Admitting Diagnosis right sided forearm abscess (1) Abscess of right forearm ICD Code: L02.413 - Cutaneous abscess of right upper limb Status: Acute (2) Renal insufficiency ICD Code: N28.9 - Disorder of kidney and ureter, unspecified Status: Chronic (3) Bipolar disorder ICD Code: F31.9 - Bipolar disorder, unspecified Status: Chronic (4) Tobacco abuse ICD Code: Z72.0 - Tobacco use Status: Chronic Procedures Right forearm debridement by hand surgery Brief History - From Admission This is a 61-year-old male with a PMH of Bipolar Disorder, h/o Cocaine Abuse, Tobacco Abuse and Right Forearm Abscess who presented to the ER w/ complaints of worsening pain to right forearm. Recent admit to Family Practice from 11/22- for similar complaints, found to have right forearm abscess and significant cellulitis, s/p eval by Dr. Hunt w/ I&D 11/22/16, Wound Cult +Group A Strep, on Vanc/Zosyn while hospitalized, ultimately LEFT AMA on 11/27/16 because he wanted to go smoke. Returns now w/ ongoing symptoms. Admission refused by FP. Denies recent cocaine use, no h/o IVDU. On arrival, BP 134/84, HR 114, O2 sat 99% on RA, Afebrile. WBC 12.5, previously 8.7 on 11/27/16. Creatinine 1.72, previously 1.60 on 11/27/16. Lactic Acid normal. Urine Drug Screen negative. Wrist X-ray with mild soft tissue swelling and laceration, no radiopaque foreign body. S/p Blood Cultures, Vanc/Zosyn in ER. CBC/BMP: 12/04/16 0404 12/04/16 0404 Significant Findings Laboratory Tests Test 12/03/16 08:47 12/04/16 04:04 12/04/16 16:45 Blood Urea Nitrogen 19 MG/DL (7-18) Creatinine 1.85 MG/DL (0.60-1.30) 1.71 MG/DL (0.60-1.30) Calcium Level 8.3 MG/DL (8.5-10.1) 8.3 MG/DL (8.5-10.1) Sodium Level 146 MEQ/L (136-145) 147 MEQ/L (136-145) Chloride Level 119 MEQ/L (98-107) 120 MEQ/L (98-107) Carbon Dioxide Level 20.6 MEQ/L (21.0-32.0) 20.3 MEQ/L (21.0-32.0) Estimat Glomerular Filtration Rate 37 ML/MIN (>89) 41 ML/MIN (>89) Red Blood Count 3.84 MIL/MM3 (4.50-5.90) Hemoglobin 11.8 GM/DL (13.0-17.0) Hematocrit 36.3 % (39.0-51.0) Imaging Last Impressions Wrist X-Ray 12/01/16 0000 Signed Impressions: Service Date/Time: November 16:22 - CONCLUSION: Mild soft tissue swelling and laceration with no radiopaque foreign body. Felton Polk MD PE at Discharge GENERAL: No acute distress, lying in bed comfortably RESPIRATORY: unlabored breathing MUSCULOSKELETAL: Right forearm in splint, fingertips appear normal in color, no edema Hospital Course Patient was admitted, started on IV antibiotics, hand surgery was consulted, performed surgical debridement of the right arm. Patient's blood cultures from 12/01 were NGTD x 4 days, his previous wound cultures for the original presentation of this illness demonstrated pansensitive staph aureus. Patient remained afebrile for at least 48 hours after surgery and was tolerating meals well with no worsening pain symptoms in his right hand. Cleared with orthopedics for discharge. Patient has met maximum benefit from hospitalization and is clinically stable for discharge. Was prescribed clindamycin upon discharge Pt Condition on Discharge: Good Discharge Disposition: Discharge Home Discharge Time: > 30 minutes Discharge Instructions DIET: Follow Instructions for: As Tolerated, No Restrictions Activities you can perform: See Additionl Instruction Other Activity Instructions: AVOID bathing or showering right arm unless cleared by hand surgery, keep away from dirt or any other contaminants as much as possible. Follow up Referrals: Hand Surgery - 2 Weeks with Johanne Hunt MD New Medications: Clindamycin (Clindamycin) 300 Mg Cap 300 MG PO TID for Infection for 5 Days, #15 CAP 0 Refills Continued Medications: Olanzapine (Olanzapine) 10 Mg Tab 20 MG PO HS for Mental Health for 15 Days, TAB 1 Refill Shaun Yost MD Dec 05, 2016 19:49
== END 2016-12-05 17:14 | disposition home or self-care (01) | DRG 920 ==
LOC: NEPD 12:26 → NEDA 17:11 → OBSVTOIN 19:20 → N05B 20:15
PROVIDERS: ADMIT Hospitalist; ATTEND Hospitalist
PROC: 0HQDXZZ Repair Right Lower Arm Skin, External Approach (ICD-10-PCS; principal; 2016-12-02 17:07)
DX: T81.30XA Disruption of wound, unspecified, initial encounter (principal); L02.413 Cutaneous abscess of right upper limb; I12.9 Hypertensive chronic kidney disease with stage 1 through stage 4 chronic kidney disease, or unspecified chronic kidney disease; L03.113 Cellulitis of right upper limb; F31.9 Bipolar disorder, unspecified; F17.210 Nicotine dependence, cigarettes, uncomplicated; Y83.8 Other surgical procedures as the cause of abnormal reaction of the patient, or of later complication, without mention of misadventure at the time of the procedure; N18.9 Chronic kidney disease, unspecified
CPT/HCPCS: 73110; 80048; 80053; 80202; 80307; 83605; 85025; 87015; 87040; 87070; 87102; 87116; 87205; 87206; 96365; 99281; J0690; J0692; J2270; J2405; J3010; J3370; J7030; J7040; J7050

== ENCOUNTER 2016-12-07 18:32 | Emergency (ER) | payer MEDICARE, MEDICAID ==
[~2016-12-07] VITALS: Ht 190.5 cm; Wt 72.5 kg
[~2016-12-07 18:32] MED LIST changes: -BACI500O9 TOPICAL; +CLIN1CAP6 PO
[2016-12-07 18:35] VITALS: BP 87/61; PULSE 110; RESP 20; TEMP 98.9; O2SAT 99
[2016-12-07 18:59] VITALS: BP 91/57; PULSE 97; RESP 18; O2SAT 98
--- NOTE | 2016-12-07 19:44 | PD ---
HPI Chief Complaint: Edema Time Seen by Provider: 19:31 Travel History International Travel<30 days: No Contact w/Intl Traveler<30days: No Traveled to known affect area: No History of Present Illness HPI The patient is a 61-year-old male who presents to the emergency department for evaluation of right hand swelling after surgery. The patient recently was readmitted to the hospital for an infected wound to the extensor surface of the right wrist. The patient underwent irrigation and debridement by the hand surgeon, Dr. Hunt. The patient was placed in a splint and discharged home on clindamycin. The patient states she was unable to afford his clindamycin, secondary to inability to get his money out of the bank. He returns today complaining of right hand swelling. He notes mild discomfort over the area but denies any significant drainage or bleeding. The edema is distal to the wound, he does admit to having his hand down throughout the day while the splint was in place. He does know some mild numbness over the extensor surface of the right hand and difficulty with range of motion of the right thumb that is chronic from previous surgery and infection. He denies any acute fever, chills, or sweats. PFSH Past Medical History Blood Disorders: No Bipolar Disorder: Yes (TAKES LITHIUM) Cardiovascular Problems: No Diabetes: No (See EMR) Diminished Hearing: No Endocrine: No Gastrointestinal Disorders: Yes Glaucoma: No Genitourinary: No Hypertension: Yes Musculoskeletal: No Neurologic: No Psychiatric: Yes Reproductive: No Respiratory: No Tetanus Vaccination: < 5 Years Influenza Vaccination: No Past Surgical History Abdominal Surgery: No AICD: No Arteriovenous Shunt: No Cardiac Surgery: No Ear Surgery: No Endocrine Surgery: No Eye Surgery: No Genitourinary Surgery: No Gynecologic Surgery: No Insulin Pump: No Joint Replacement: No Oral Surgery: No Pacemaker: No Thoracic Surgery: No Other Surgery: Yes Social History Alcohol Use: No Tobacco Use: Yes (1 1/2 packs a day) Substance Use: No Allergies-Medications (Allergen,Severity, Reaction): Coded Allergies: No Known Allergies (Verified , 12/01/16) Reported Meds & Prescriptions Reported Meds & Active Scripts Active Clindamycin (Clindamycin HCl) 300 Mg Cap 300 Mg PO TID 5 Days Olanzapine 10 Mg Tab 20 Mg PO HS 15 Days Review of Systems Except as stated in HPI: all other systems reviewed are Neg Musculoskeletal: Positive: Limited ROM, Edema, Pain Neurologic: Positive: Paresthesia, Sensory Disturbance Psychiatric: Positive: Mood Disorder Physical Exam Narrative GENERAL: Awake, alert, pleasant 61-year-old male who appears his stated age and is in no acute respiratory distress. SKIN: Focused skin assessment warm/dry. HEAD: Atraumatic. Normocephalic. EYES: No injection or drainage. ENT: No nasal bleeding or discharge. Mucous membranes pink and moist. NECK: Trachea midline. No JVD. CARDIOVASCULAR: Regular rate and rhythm. No murmur appreciated. RESPIRATORY: No accessory muscle use. Clear to auscultation. Breath sounds equal bilaterally. MUSCULOSKELETAL: The right hand has a wound with sutures in place of the extensor surfaces of the distal one third of the forearm. No obvious dehiscence. There is mild edema of the hand that is distal to the wound but no erythema. Limited ability to extend the thumb. He is able to move all 5 digits , however, limited range of motion of the thumb of the right hand. Positive right radial pulse. No edema noted of the proximal forearm or the right humeral area. No lymphadenitis noted. NEUROLOGICAL: Awake and alert. No obvious cranial nerve deficits. Motor grossly within normal limits. Normal speech. PSYCHIATRIC: Appropriate mood and affect; insight and judgment normal. Data Data Last Documented VS Vital Signs Date Time Temp Pulse Resp B/P (MAP) Pulse Ox O2 Delivery O2 Flow Rate FiO2 12/07/16 18:59 97 18 91/57 (68) 98 Room Air 12/07/16 18:35 98.9 Orders Orders Clindamycin (Cleocin) (12/07/16 19:45) Ibuprofen (Motrin) (12/07/16 19:45) Splint Or Brace Apply/Monitor (12/07/16 19:51) Sling Cradle Arm (12/07/16 ) [facility] Medical Decision Making Medical Screen Exam Complete: Yes Emergency Medical Condition: Yes Medical Record Reviewed: Yes Differential Diagnosis Differential diagnosis includes dependent edema, cellulitis, abscess, complication from wearing splint, compartment syndrome, fracture. Narrative Course The patient's physical examination reveals dependent edema distal to the wound, the patient's splint initially was tight. He has positive right radial pulse, it appears the patient has edema from keeping his hand down. The splint was removed. A call was placed to Dr. Hunt. I did review the patient's previous hospitalization course an operative note. I will have a discussion with the patient's hand surgeon in regards to possibly just placing a volar splint and sling to keep his hand upright to decrease edema and I will administer a dose of clindamycin in the emergency department. I discussed the patient with Dr. Morin, who was on-call for Dr. Hunt. She states the patient can call the office in the morning to schedule an appointment. The patient appeared to be in a wrist splint that was not a thumb spica, therefore, he was placed in a Velcro wrist splint and giving a sling. He is advised elevate the arm. There is no evidence of DVT or progressing cellulitis/abscess. Diagnosis Primary Impression: Dependent edema Referrals: Johanne Hunt MD call for appointment Call the office in the morning for an appointment Patient Instructions: General Instructions Additional Instructions: splint and sling as directed. Elevate right hand. Take the clindamycin as previously directed. Call your hand surgeon in the morning for an appointment. Disposition: 01 DISCHARGE HOME Condition: Stable Yan Salinas MD Dec 07, 2016 19:44
[2016-12-07] MEDS ORDERED: CLINDAMYCIN 150 MG CAP PO ONE (19:45)
[2016-12-07] MEDS ORDERED: IBUPROFEN 600 MG TAB PO ONE (19:45)
== END 2016-12-07 20:48 | disposition home or self-care (01) ==
LOC: NEPE 18:32
DX: R60.0 Localized edema (principal); R20.0 Anesthesia of skin; I10 Essential (primary) hypertension; F17.200 Nicotine dependence, unspecified, uncomplicated; Z98.890 Other specified postprocedural states; Z86.59 Personal history of other mental and behavioral disorders; Z87.19 Personal history of other diseases of the digestive system
CPT/HCPCS: 99283; L3908

== ENCOUNTER 2016-12-21 16:29 | Emergency (ER) | payer MEDICARE, MEDICAID ==
[~2016-12-21] VITALS: Ht 190.5 cm; Wt 72.0 kg
[2016-12-21 16:31] VITALS: BP 133/90; PULSE 99; RESP 20; TEMP 99.3; O2SAT 98
--- NOTE | 2016-12-21 17:40 | PD ---
HPI Chief Complaint: Wound/Suture/Staple Re-Check Time Seen by Provider: 17:37 Travel History International Travel<30 days: No Contact w/Intl Traveler<30days: No Traveled to known affect area: No History of Present Illness HPI 61-year-old male presents emergency department requesting stitches to be removed from "a cut "from his right wrist. He said they've been there for over a week. Said he was given antibiotics but he was unable to fill them because he could not afford them. He has been applying topical antibiotic ointment to the site. He denies fever, vomiting. Denies drainage or pain to the site. Has been wearing an arm splint and arm sling because he was told to keep his arm elevated. He has no other medical complaints. Symptoms are mild in severity. No known allergies. No midline factors or associated signs and symptoms. PFSH Past Medical History Blood Disorders: No Bipolar Disorder: Yes (TAKES LITHIUM) Cardiovascular Problems: No Diabetes: No (See EMR) Diminished Hearing: No Endocrine: No Gastrointestinal Disorders: Yes Glaucoma: No Genitourinary: No Hypertension: Yes Musculoskeletal: No Neurologic: No Psychiatric: Yes Reproductive: No Respiratory: No Past Surgical History Abdominal Surgery: No AICD: No Arteriovenous Shunt: No Cardiac Surgery: No Ear Surgery: No Endocrine Surgery: No Eye Surgery: No Genitourinary Surgery: No Gynecologic Surgery: No Insulin Pump: No Joint Replacement: No Oral Surgery: No Pacemaker: No Thoracic Surgery: No Other Surgery: Yes Social History Alcohol Use: No Tobacco Use: Yes (1 1/2 packs a day) Substance Use: No Allergies-Medications (Allergen,Severity, Reaction): Coded Allergies: No Known Allergies (Verified , 12/01/16) Reported Meds & Prescriptions Reported Meds & Active Scripts Active Bactrim DS (Sulfamethoxazole-Trimethoprim) 800-160 Mg Tab 1 Tab PO BID 10 Days Clindamycin (Clindamycin HCl) 300 Mg Cap 300 Mg PO TID 5 Days Olanzapine 10 Mg Tab 20 Mg PO HS 15 Days Review of Systems Except as stated in HPI: all other systems reviewed are Neg Physical Exam Narrative GENERAL: Well-nourished, well-developed male patient, in no acute distress SKIN: Warm and dry. Wound to the volar aspect of the distal right forearm that is well approximated with sutures intact; without drainage, edema; minimal surrounding erythema; without tenderness on palpation. Right upper extremity supple and non-tense with 2+ radial pulse and sensory intact and without erythema or edema. No lymphangitis noted. HEAD: Atraumatic. Normocephalic. EYES: Pupils equal and round. No scleral icterus. No injection or drainage. ENT: Mucosa pink and moist. Airway patent. NECK: Trachea midline. CARDIOVASCULAR: Regular rate. RESPIRATORY: No accessory muscle use. GASTROINTESTINAL: Flat. MUSCULOSKELETAL: No obvious deformities. No clubbing. No cyanosis. No edema. NEUROLOGICAL: Awake and alert. Oriented 3. No obvious cranial nerve deficits. Motor grossly within normal limits. Normal speech. PSYCHIATRIC: Appropriate mood and affect; insight and judgment normal. Data Data Last Documented VS Vital Signs Date Time Temp Pulse Resp B/P (MAP) Pulse Ox O2 Delivery O2 Flow Rate FiO2 12/21/16 16:31 99.3 99 20 133/90 (104) 98 Room Air Orders Orders Wound Care (12/21/16 17:40) [facility] Medical Decision Making Medical Screen Exam Complete: Yes Emergency Medical Condition: Yes Medical Record Reviewed: Yes Differential Diagnosis Encounter for stitch removal, wound recheck, medical clearance Narrative Course 61-year-old male presents for suture removal to the wound of his right distal forearm. I reviewed the medical record and the wound is from a surgical debridement that was done by Dr. Johanne Hunt on December 01. The patient is afebrile and nontoxic-appearing. He has not taken the antibiotics as prescribed. I reviewed the past medical and the wound culture was susceptible to Bactrim. The patient was prescribed clindamycin. I will provide the patient with a prescription for Bactrim. The wound does not appear infected but it is Some minimal surrounding erythema. Instructed patient to follow up with Dr. Johanne Hunt and to call and make an appointment with her tomorrow morning and he verbalized understanding and agreement. Her information was provided in the discharge instructions and this was told to the patient. Instructed patient to follow up with primary care provider. Patient verbalizes understanding and agreement with treatment plan. Patient is medically cleared and stable for discharge. Discussed reasons to return to the emergency department. Patient agrees with treatment plan. The patients vital signs are stable and the patient is stable for outpatient follow-up and treatment. Patient discharged home, stable and in no acute distress. Diagnosis Primary Impression: Encounter for wound re-check Referrals: Johanne Hunt MD Primary Care Physician Patient Instructions: Acute Wound Care (DC), General Instructions Additional Instructions: Refer to discharge instructions for acute wound care Keep area clean and dry Keep area covered with bandage; change bandage once or twice daily, or as needed Follow-up with Dr. Johanne Hunt, hand surgeon; call her office to make an appointment for stitches removal and abscess recheck Follow-up with primary care provider Return to the emergency department immediately for worsening of symptoms Med/Other Pt SpecificInfo: Prescription(s) given, No Meds Exist/No RX given Scripts Sulfamethoxazole-Trimethoprim (Bactrim DS) 800-160 Mg Tab 1 TAB PO BID for Infection for 10 Days, TAB 0 Refills Prov: Kimberly Rutherford 12/21/16 Disposition: 01 DISCHARGE HOME Condition: Stable Kimberly Rutherford Dec 21, 2016 17:40
[2016-12-21] MEDS ORDERED: BACT800T5 PO (18:00)
== END 2016-12-21 18:18 | disposition home or self-care (01) ==
LOC: NEPK 16:29
DX: Z48.02 Encounter for removal of sutures (principal); F31.9 Bipolar disorder, unspecified; I10 Essential (primary) hypertension; F17.200 Nicotine dependence, unspecified, uncomplicated; Z79.899 Other long term (current) drug therapy
CPT/HCPCS: 99283

== ENCOUNTER 2017-02-09 12:59 | Emergency (ER) | payer MEDICARE, MEDICAID ==
[~2017-02-09] VITALS: Ht 190.5 cm; Wt 75.0 kg
[~2017-02-09 12:59] MED LIST changes: +BACT800T5 PO
[2017-02-09 13:02] VITALS: BP 128/77; PULSE 98; RESP 14; TEMP 98.5; O2SAT 96
--- NOTE | 2017-02-09 13:58 | PD ---
HPI Chief Complaint: Wound/Suture/Staple Re-Check Time Seen by Provider: 13:43 Travel History International Travel<30 days: No Contact w/Intl Traveler<30days: No Traveled to known affect area: No History of Present Illness HPI 61-year-old male presents to emergency department where suture removal from previous laceration and incision and drainage from the right ulnar wrist. Patient was last seen here in December. Patient has [address] on the right wrist. The wound itself is very well-healed without signs of dehiscence or cellulitis. He has no other acute complaints. He has no known drug allergies. PFSH Past Medical History Blood Disorders: No Bipolar Disorder: Yes (TAKES LITHIUM) Cardiovascular Problems: No Diabetes: No (See EMR) Diminished Hearing: No Endocrine: No Gastrointestinal Disorders: Yes Glaucoma: No Genitourinary: No Hypertension: Yes Musculoskeletal: No Neurologic: No Psychiatric: Yes Reproductive: No Respiratory: No Past Surgical History Abdominal Surgery: No AICD: No Arteriovenous Shunt: No Cardiac Surgery: No Ear Surgery: No Endocrine Surgery: No Eye Surgery: No Genitourinary Surgery: No Gynecologic Surgery: No Insulin Pump: No Joint Replacement: No Oral Surgery: No Pacemaker: No Thoracic Surgery: No Other Surgery: Yes Social History Alcohol Use: No Tobacco Use: Yes (1 1/2 packs a day) Substance Use: No Allergies-Medications (Allergen,Severity, Reaction): Coded Allergies: No Known Allergies (Verified , 12/21/16) Reported Meds & Prescriptions Reported Meds & Active Scripts Active Bactrim DS (Sulfamethoxazole-Trimethoprim) 800-160 Mg Tab 1 Tab PO BID 10 Days Clindamycin (Clindamycin HCl) 300 Mg Cap 300 Mg PO TID 5 Days Olanzapine 10 Mg Tab 20 Mg PO HS 15 Days Review of Systems Except as stated in HPI: all other systems reviewed are Neg General / Constitutional: No: Fever Eyes: No: Visual changes HENT: No: Headaches Cardiovascular: No: Chest Pain or Discomfort Respiratory: No: Shortness of Breath Gastrointestinal: No: Abdominal Pain Genitourinary: No: Dysuria Musculoskeletal: No: Pain Skin: Positive Other (well-healed laceration), No Rash Neurologic: No: Weakness Psychiatric: No: Depression Endocrine: No: Polydipsia Hematologic/Lymphatic: No: Easy Bruising Physical Exam Narrative GENERAL: Patient is in no acute distress. SKIN: Warm and dry. Patient has well-healed laceration right dorsal wrist with [address] HEAD: Atraumatic. Normocephalic. EYES: Pupils equal and round. No scleral icterus. No injection or drainage. ENT: No nasal bleeding or discharge. Mucous membranes pink and moist. Thanks is clear. Airway is patent NECK: Trachea midline. Supple and nontender. CARDIOVASCULAR: Regular rate and rhythm. RESPIRATORY: No accessory muscle use. MUSCULOSKELETAL: Extremities without clubbing, cyanosis, or edema. No obvious deformities. NEUROLOGICAL: Awake and alert. No obvious cranial nerve deficits. Motor grossly within normal limits. Five out of 5 muscle strength in the arms and legs. Normal speech. PSYCHIATRIC: Appropriate mood and affect; insight and judgment normal. Data Data Last Documented VS Vital Signs Date Time Temp Pulse Resp B/P (MAP) Pulse Ox O2 Delivery O2 Flow Rate FiO2 02/09/17 13:02 98.5 98 14 128/77 (94) 96 MDM Medical Decision Making Medical Screen Exam Complete: Yes Emergency Medical Condition: Yes Differential Diagnosis Laceration. Wound check. Suture removal Narrative Course All sutures were removed without difficulty. No further medical treatment is warranted. Diagnosis Primary Impression: Encounter for removal of sutures Referrals: Primary Care Physician Patient Instructions: General Instructions Additional Instructions: All sutures were removed without difficulty. No further medical treatment is warranted. Med/Other Pt SpecificInfo: No Change to Meds, Wound Care Disposition: 01 DISCHARGE HOME Condition: Stable Yoan Lizarraga Feb 09, 2017 13:58
[2017-02-21] MEDS ORDERED: HALO5TAB PO ×2 (09:49)
== END 2017-02-09 14:11 | disposition home or self-care (01) ==
LOC: NEPK 12:59
DX: S61.511D Laceration without foreign body of right wrist, subsequent encounter (principal); X58.XXXD Exposure to other specified factors, subsequent encounter; Z48.02 Encounter for removal of sutures
CPT/HCPCS: 99281

== ENCOUNTER 2017-02-21 08:57 | Emergency (ER) | payer MEDICARE, MEDICAID ==
[~2017-02-21] VITALS: Ht 190.5 cm; Wt 72.0 kg
[~2017-02-21 08:57] MED LIST changes: -CLIN1CAP6 PO; +CLIN300C5 PO
[2017-02-21 08:59] VITALS: BP 138/90; PULSE 86; RESP 16; TEMP 98.7; O2SAT 99
[2017-02-21] MEDS ORDERED: HALO5TAB PO (09:49)
--- NOTE | 2017-02-21 10:16 | PD ---
HPI Chief Complaint: Numbness/Tingling Time Seen by Provider: 09:51 Travel History International Travel<30 days: No Contact w/Intl Traveler<30days: No Traveled to known affect area: No History of Present Illness HPI 61-year-old man presents with intermittent numbness in his right hand. Previous cut to that right hand. He states he woke up the past several mornings with numbness in the right hand and right arm. This is mostly resolved. No other weakness clumsiness or neurologic symptoms. No other complaints. History Past Medical History Narrative Medical Seizures Diabetes On Haldol for psychiatric disease Tetanus Vaccination: < 5 Years Influenza Vaccination: No Social History Alcohol Use: Yes (OCCASIONALLY) Tobacco Use: Yes (1 PPD) Allergies-Medications (Allergen,Severity, Reaction): Coded Allergies: No Known Allergies (Verified Adverse Reaction, Unknown, 02/21/17) Reported Meds & Prescriptions Reported Meds & Active Scripts Active Olanzapine 10 Mg Tab 20 Mg PO HS 15 Days Reported Haloperidol 5 Mg Tab 5 Mg PO BID Review of Systems Except as stated in HPI: all other systems reviewed are Neg Physical Exam Narrative GENERAL: Well-appearing 61-year-old man, no acute distress. SKIN: Focused skin assessment warm/dry. HEAD: Atraumatic. Normocephalic. NECK: Trachea midline. No JVD. CARDIOVASCULAR: Regular rate and rhythm. No murmur appreciated. RESPIRATORY: No accessory muscle use. Clear to auscultation. Breath sounds equal bilaterally. GASTROINTESTINAL: Abdomen soft, non-tender, nondistended. Hepatic and splenic margins not palpable. MUSCULOSKELETAL: No obvious deformities. No edema. NEUROLOGICAL: Awake and alert. No obvious cranial nerve deficits. Motor grossly within normal limits. Normal speech. Data Data Last Documented VS Vital Signs Date Time Temp Pulse Resp B/P (MAP) Pulse Ox O2 Delivery O2 Flow Rate FiO2 02/21/17 08:59 98.7 86 16 138/90 (106) 99 MDM Medical Decision Making Medical Screen Exam Complete: Yes Emergency Medical Condition: Yes Differential Diagnosis Paresthesias, neurapraxia, nerve injury from laceration, radiculopathy, CVA or TIA, other Narrative Course Medical decision making 61-year-old male numbness in the right hand. This seems to be related to his previous laceration. I don't see any evidence of radiculopathy or stroke. Recommend supportive treatment. Diagnosis Primary Impression: Right upper extremity numbness Additional Instructions: Follow-up with her primary doctor in next 2-4 days. Return to the emergency department for any new or worsening symptoms. Med/Other Pt SpecificInfo: No Change to Meds Disposition: 01 DISCHARGE HOME Condition: Stable Jason Rahman MD Feb 21, 2017 10:16
== END 2017-02-21 10:29 | disposition home or self-care (01) ==
LOC: NEPC 08:57
DX: R20.0 Anesthesia of skin (principal); R56.9 Unspecified convulsions; E11.9 Type 2 diabetes mellitus without complications; F17.200 Nicotine dependence, unspecified, uncomplicated; Z79.899 Other long term (current) drug therapy
CPT/HCPCS: 99281

== ENCOUNTER 2017-08-31 18:35 | Inpatient (IN) | payer MEDICARE, MEDICAID, OTHER ==
[~2017-08-31] VITALS: Ht 190.5 cm; Wt 72.1 kg
[~2017-08-31 18:35] MED LIST changes: -BACT800T5 PO; -CLIN300C5 PO; +HALO5TAB PO
[2017-08-31] MEDS ORDERED: NICOTINE 21 MG/24 HR PATCH T-DERMAL ONE (19:00)
[2017-08-31] MEDS ORDERED: LORazepam 1 MG TAB PO ONE (19:00)
[2017-08-31 19:20] LABS: AUTOMATED NEUTROPHIL # 8.2 TH/MM3 (1.8-7.7); BASOPHIL # 0.1 TH/MM3 (0-0.2); BASOPHIL % 1.1 % (0.0-2.0); EOSINOPHIL # 0.1 TH/MM3 (0-0.4); EOSINOPHIL % 0.5 % (0.0-4.0); HEMATOCRIT 44.1 % (39.0-51.0); HEMOGLOBIN 14.7 GM/DL (13.0-17.0); LYMPHOCYTE # 2.3 TH/MM3 (1.0-4.8); MEAN CELL VOLUME 91.9 FL (80.0-100.0); MEAN CORPUSCULAR HEMOGLOBIN 30.6 PG (27.0-34.0); MEAN CORPUSCULAR HGB CONC 33.3 % (32.0-36.0); MEAN PLATELET VOLUME 9.6 FL (7.0-11.0); MONO % 5.8 % (0.0-8.0); MONOCYTE # 0.7 TH/MM3 (0-0.9); NEUT % 72.6 % (16.0-70.0); PLATELET COUNT 302 TH/MM3 (150-450); WHITE BLOOD COUNT 11.3 TH/MM3 (4.0-11.0)
--- NOTE | 2017-08-31 19:28 | PD ---
HPI Chief Complaint: Psychiatric Symptoms Time Seen by Provider: 18:55 Travel History International Travel<30 days: No Contact w/Intl Traveler<30days: No Traveled to known affect area: No History of Present Illness HPI 61-year-old male with history of bipolar schizoaffective disorder presents emergency department under [place] act for psychiatric evaluation. Patient believes that his house is haunted. He was threatening to shoot his neighbor. Patient has multiple self-inflicted scratch lowry on his chest and arms that he states he did today because his house is haunted. Denies any illicit drug use. States that he smokes tobacco cigarettes. Patient states he does not want to hurt himself or anybody else but he needs to get away from the demons in his house. Patient has no other symptoms to report. PFSH Past Medical History Blood Disorders: No Bipolar Disorder: Yes (TAKES LITHIUM) Cardiovascular Problems: No Diminished Hearing: No Endocrine: No Gastrointestinal Disorders: Yes Glaucoma: No Genitourinary: No Hypertension: Yes Musculoskeletal: No Neurologic: No Psychiatric: Yes Reproductive: No Respiratory: No Past Surgical History Abdominal Surgery: No AICD: No Arteriovenous Shunt: No Cardiac Surgery: No Ear Surgery: No Endocrine Surgery: No Eye Surgery: No Genitourinary Surgery: No Gynecologic Surgery: No Insulin Pump: No Joint Replacement: No Oral Surgery: No Pacemaker: No Thoracic Surgery: No Other Surgery: Yes Social History Alcohol Use: Yes (OCCASIONALLY) Tobacco Use: Yes (1 PPD) Substance Use: No Allergies-Medications (Allergen,Severity, Reaction): Coded Allergies: No Known Allergies (Verified Adverse Reaction, Unknown, 08/31/17) Reported Meds & Prescriptions Reported Meds & Active Scripts Active Olanzapine 10 Mg Tab 20 Mg PO HS 15 Days Reported Haloperidol 5 Mg Tab 5 Mg PO BID Review of Systems Except as stated in HPI: all other systems reviewed are Neg Physical Exam Narrative GENERAL: Thin male patient, with bizarre affect, but in no acute distress SKIN: Focused skin assessment warm/dry. Multiple superficial scratch lowry over the anterior chest and left arm. No active bleeding. HEAD: Atraumatic. Normocephalic. EYES: Pupils equal and round. Disconjugated. No scleral icterus. No injection or drainage. ENT: No nasal bleeding or discharge. Mucous membranes pink and moist. NECK: Trachea midline. No JVD. CARDIOVASCULAR: Regular rate and rhythm. No murmur appreciated. RESPIRATORY: No accessory muscle use. Course to auscultation. Breath sounds equal bilaterally. GASTROINTESTINAL: Abdomen soft, non-tender, nondistended. Hepatic and splenic margins not palpable. MUSCULOSKELETAL: No obvious deformities. No clubbing. No cyanosis. No edema. NEUROLOGICAL: Awake and alert. No obvious cranial nerve deficits. Motor grossly within normal limits. Normal speech. Data Data Last Documented VS Vital Signs Date Time Temp Pulse Resp B/P (MAP) Pulse Ox O2 Delivery O2 Flow Rate FiO2 08/31/17 20:14 85 18 150/90 (110) 99 Room Air Orders Orders Complete Blood Count With Diff (08/31/17 18:51) Comprehensive Metabolic Panel (08/31/17 18:51) Psych Screen (08/31/17 18:51) Thyroid Stimulating Hormone (08/31/17 18:56) Drug Screen, Random Urine (08/31/17 18:56) Alcohol (Ethanol) (08/31/17 18:56) Lorazepam (Ativan) (08/31/17 19:00) Nicotine 21 Mg Patch.24 Hr (Habitrol 21 (08/31/17 19:00) Labs Laboratory Tests Test 08/31/17 18:45 White Blood Count 11.3 TH/MM3 Red Blood Count 4.80 MIL/MM3 Hemoglobin 14.7 GM/DL Hematocrit 44.1 % Mean Corpuscular Volume 91.9 FL Mean Corpuscular Hemoglobin 30.6 PG Mean Corpuscular Hemoglobin Concent 33.3 % Red Cell Distribution Width 15.0 % Platelet Count 302 TH/MM3 Mean Platelet Volume 9.6 FL Neutrophils (%) (Auto) 72.6 % Lymphocytes (%) (Auto) 20.0 % Monocytes (%) (Auto) 5.8 % Eosinophils (%) (Auto) 0.5 % Basophils (%) (Auto) 1.1 % Neutrophils # (Auto) 8.2 TH/MM3 Lymphocytes # (Auto) 2.3 TH/MM3 Monocytes # (Auto) 0.7 TH/MM3 Eosinophils # (Auto) 0.1 TH/MM3 Basophils # (Auto) 0.1 TH/MM3 CBC Comment DIFF FINAL Differential Comment Blood Urea Nitrogen 23 MG/DL Creatinine 1.96 MG/DL Random Glucose 116 MG/DL Total Protein 8.2 GM/DL Albumin 4.2 GM/DL Calcium Level 9.3 MG/DL Alkaline Phosphatase 101 U/L Aspartate Amino Transf (AST/SGOT) 19 U/L Alanine Aminotransferase (ALT/SGPT) 21 U/L Total Bilirubin 0.4 MG/DL Sodium Level 145 MEQ/L Potassium Level 4.4 MEQ/L Chloride Level 114 MEQ/L Carbon Dioxide Level 23.0 MEQ/L Anion Gap 8 MEQ/L Estimat Glomerular Filtration Rate 35 ML/MIN Thyroid Stimulating Hormone 3rd Gen 3.500 uIU/ML Ethyl Alcohol Level LESS THAN 3 MG/DL MDM Medical Decision Making Medical Screen Exam Complete: Yes Emergency Medical Condition: Yes Medical Record Reviewed: Yes Differential Diagnosis Mood disorder versus personality disorder versus adjustment reaction disorder versus psychosis Narrative Course 61-year-old male presents emergency department presents emergency department under [place] act for psychiatric evaluation. Patient has bizarre affect but he appears without distress. He does have multiple scratch friends over his chest and left arm that he did himself with his fingernails. Laboratory Tests Test 08/31/17 18:45 White Blood Count 11.3 TH/MM3 Red Blood Count 4.80 MIL/MM3 Hemoglobin 14.7 GM/DL Hematocrit 44.1 % Mean Corpuscular Volume 91.9 FL Mean Corpuscular Hemoglobin 30.6 PG Mean Corpuscular Hemoglobin Concent 33.3 % Red Cell Distribution Width 15.0 % Platelet Count 302 TH/MM3 Mean Platelet Volume 9.6 FL Neutrophils (%) (Auto) 72.6 % Lymphocytes (%) (Auto) 20.0 % Monocytes (%) (Auto) 5.8 % Eosinophils (%) (Auto) 0.5 % Basophils (%) (Auto) 1.1 % Neutrophils # (Auto) 8.2 TH/MM3 Lymphocytes # (Auto) 2.3 TH/MM3 Monocytes # (Auto) 0.7 TH/MM3 Eosinophils # (Auto) 0.1 TH/MM3 Basophils # (Auto) 0.1 TH/MM3 CBC Comment DIFF FINAL Differential Comment Blood Urea Nitrogen 23 MG/DL Creatinine 1.96 MG/DL Random Glucose 116 MG/DL Total Protein 8.2 GM/DL Albumin 4.2 GM/DL Calcium Level 9.3 MG/DL Alkaline Phosphatase 101 U/L Aspartate Amino Transf (AST/SGOT) 19 U/L Alanine Aminotransferase (ALT/SGPT) 21 U/L Total Bilirubin 0.4 MG/DL Sodium Level 145 MEQ/L Potassium Level 4.4 MEQ/L Chloride Level 114 MEQ/L Carbon Dioxide Level 23.0 MEQ/L Anion Gap 8 MEQ/L Estimat Glomerular Filtration Rate 35 ML/MIN Thyroid Stimulating Hormone 3rd Gen 3.500 uIU/ML Ethyl Alcohol Level LESS THAN 3 MG/DL Findings are reviewed. Patient is medically cleared to undergo psychiatric screening for further evaluation and disposition. Mental health screening discussed with the patient. Psychiatric screen ordered. Diagnosis Primary Impression: Schizoaffective disorder, bipolar type Additional Impression: Medical clearance for psychiatric admission Condition: Stable Sakshi Vieyra August 31, 2017 19:28
[2017-08-31 19:43] LABS: ALBUMIN 4.2 GM/DL (3.4-5.0); AST (GOT) 19 U/L (15-37); BLOOD UREA NITROGEN 23 MG/DL (7-18); CALCIUM 9.3 MG/DL (8.5-10.1); CHLORIDE 114 MEQ/L (98-107); CREATININE 1.96 MG/DL (0.60-1.30); GLOMERULAR FILTRATION RATE 35 ML/MIN (>89); GLUCOSE,RANDOM 116 MG/DL (74-106); SODIUM (NA) 145 MEQ/L (136-145)
[2017-08-31 19:54] LABS: ALKALINE PHOSPHATASE 101 U/L (45-117); ALT (GPT) 21 U/L (12-78); TOTAL BILIRUBIN ADULT 0.4 MG/DL (0.2-1.0); TOTAL PROTEIN 8.2 GM/DL (6.4-8.2)
[2017-08-31 20:14] VITALS: BP 150/90; PULSE 85; RESP 18; O2SAT 99
[2017-09-01 00:05] VITALS: BP 130/69; PULSE 89; RESP 18; O2SAT 98
[2017-09-01] MEDS ORDERED: OLANZapine 10 MG TAB PO ONE (04:30)
[2017-09-01 04:53] VITALS: BP 182/100; PULSE 120; RESP 20; O2SAT 100
[2017-09-01] MEDS ORDERED: LORazepam 2 MG/ML VIAL IM STA (08:43)
[2017-09-01] MEDS ORDERED: ALUMINUM/MAGNESIUM/SIMETH 30 ML CUP PO PRN (08:45)
[2017-09-01] MEDS ORDERED: MAGNESIUM HYDROXIDE SUSP 30 ML CUP PO PRN (08:45)
[2017-09-01] MEDS ORDERED: HALOPERIDOL LACTATE 5 MG/ML AMP IM ONE (08:45)
[2017-09-01] MEDS ORDERED: LORazepam 2 MG/ML VIAL IM PRN ×2 (08:45)
[2017-09-01] MEDS ORDERED: ACETAMINOPHEN 325 MG TAB PO PRN (08:45)
[2017-09-01] MEDS ORDERED: LORazepam 0.5 MG TAB PO PRN (08:45)
[2017-09-01] MEDS: HALOPERIDOL 5 MG TAB PO SCH ×2 (08:56→21:00)
[2017-09-01] MEDS: LORazepam 1 MG TAB PO PRN (08:57)
[2017-09-01] MEDS ORDERED: cloNIDine HCL 0.2 MG TAB PO ONE (12:45)
--- NOTE | 2017-09-01 12:50 | HHI.HP ---
Provisional Diagnosis Admission Date September 01, 2017 at 08:44 [place] I. Schizoaffective disorder, bipolar type, cocaine use disorder [place] II. Deferred [place] III. Hypertension [place] IV. Poor social and family support, [place] V. 35 Certification of Person's Competence To Provide Express and Informed Consent I have personally examined Neftaly Lr , a person being served at [facility] on, September 01, 2017 12:33. Express and informed consent means consent voluntarily given in writing, by a competent person, after sufficient explanation and disclosure of the subject matter involved to enable the person to make a knowing and willful decision without any element of force, fraud, deceit, duress, or other form of constraint or coercion. This person is 18 years of age or older, is not now known to be incompetent to consent to treatment with a guardian advocate, and does not have a health care surrogate or proxy currently making medical treatment decisions. I have found this person to be one of the following: [] Competent to provide express and informed consent, as defined above, for voluntary admission to this facility and is competent to provide express and informed consent for treatment. He/she has the consistent capacity to make well reasoned, willful, and knowing decisions concerning his or her medical or mental health treatment. The person fully and consistently understands the purpose of the admission for examination/placement and is fully capable of personally exercising all rights assured [place] Incompetent to provide express and informed consent to voluntary admission, and this is incompetent to provide express and informed consent to treatment. The person must be transferred to involuntary status and a petition for a guardian advocate filed with the Circuit Court. [x] Refusing to provide express and informed consent to voluntary admission but is competent to provide express and informed consent for treatment. The person must be discharged or transferred to involuntary status. Form shall be completed within 24 hours of a person's arrival at the receiving facility and filed in the clinical record of each person: 1. Admitted on a voluntary basis 2. Permitted to provide express and informed consent to his/her own treatment 3. Allowed to transfer from involuntary to voluntary status 4. Prior to permitting a person to consent to his or her own treatment after having been previously found incompetent to consent to treatment. History of Present Illness Capacity: Has Capacity HPI The patient is a 61-year-old man, single, domiciled alone in [place], no family and social support, with history of bipolar schizoaffective disorder, cocaine use disorder, multiple psychiatric hospitalizations, he denies previous suicidal attempts, he was here in [place] in 2017 under the care of Dr. Dos Santos, documentation reviewed, outpatient psychiatric care in [facility], patient reports that he has been in Haldol 5 mg twice daily in the past, , medical history hypertension, who comes presents emergency department under [place] act for psychiatric evaluation. Patient believes that his house is haunted. He was threatening to shoot his neighbor. Patient has multiple self-inflicted scratch lowry on his chest and arms that he states he did today because his house is haunted. On psychiatric evaluation today the patient is poorly cooperative, very disorganized tangential, verbally hostile with a prominence incoherent speech. Patient is found in his room soaked and wet, talking to himself, screaming that he is Kirill Frantz. He was able to the escalated verbally. Patient reports that he is going to talk to me because he does not talk with non-white doctors and he wants to kill nonwhite people. Patient actually threatened to kill me right away, he attempted to get out of bed, but I was able to calm him down with verbal redirection. Patient reports that he was not born, that he is Kirill Frantz, and he wants to kill demons. Last night the patient was quite disruptive and loud in the unit, he had to be medicated multiple times in order to calm him down. Patient reports that he has been using Haldol 5 mg twice daily, on and off, that he gets prescribing [facility]. He admits using cocaine occasionally. Denies the use of other illegal drugs, uses alcohol also occasionally. Patient was not able to provide any information about his multiple scratches in his body. He accepted to continue taking Haldol 5 mg twice daily. Review of Systems Constitutional: DENIES: Diaphoretic episodes, Fatigue, Fever, Weight gain, Weight loss, Chills, Dizziness, Change in appetite, Night Sweats Endocrine: DENIES: Heat/cold intolerance, Polydipsia, Polyuria, Polyphagia Eyes: DENIES: Blurred vision, Diplopia, Eye inflammation, Eye pain, Vision loss , Photosensitivity, Double Vision Ears, nose, mouth, throat: DENIES: Tinnitus, Hearing loss, Vertigo, Nasal discharge, Oral lesions, Throat pain, Hoarseness, Ear Pain, Running Nose, Epistaxis, Sinus Pain, Toothache, Odynophagia Respiratory: DENIES: Apneas, Cough, Snoring, Wheezing, Hemoptysis, Sputum production, Shortness of breath Cardiovascular: DENIES: Chest pain, Palpitations, Syncope, Dyspnea on Exertion , PND, Lower Extremity Edema, Orthopnea, Claudication Gastrointestinal: DENIES: Abdominal pain, Black stools, Bloody stools, Constipation, Diarrhea, Nausea, Vomiting, Difficulty Swallowing, Anorexia Genitourinary: DENIES: Sexual dysfunction, Urinary frequency, Urinary incontinence, Urgency, Hematuria, Dysuria, Nocturia, Penile Discharge, Testicular Pain, Testicular Swelling Musculoskeletal: DENIES: Joint pain, Muscle aches, Stiffness, Joint Swelling, Back pain, Neck pain Integumentary: DENIES: Abnormal pigmentation, Nail changes, Pruritus, Rash Hematologic/lymphatic: DENIES: Bruising, Lymphadenopathy Immunologic/allergic: DENIES: Eczema, Urticaria Neurologic: DENIES: Abnormal gait, Headache, Localized weakness, Paresthesias, Seizures, Speech Problems, Tremor, Poor Balance Psychiatric: COMPLAINS OF: Hallucinations, Delusions Past Psych History Violence risk - others (6 mos) Elevated Violence risk - self (6 mos) Elevated Substance Abuse History Drugs/Alcohol past 12 months Alcohol and cocaine occasional Past Family Social History Coded Allergies: No Known Allergies (Verified Adverse Reaction, Unknown, 08/31/17) Active Scripts Olanzapine (Olanzapine) 10 Mg Tab, 20 MG PO HS for Mental Health for 15 Days, TAB 1 Refill Prov:Semaj Dos Santos MD 11/16/16 Reported Medications Haloperidol (Haloperidol) 5 Mg Tab, 5 MG PO BID, TAB 0 Refills 02/21/17 Current Medications Medications (Trade) Dose Ordered Sig/Anup Route Start Time Stop Time Status Last Admin (Ativan) 1 mg Q6H PRN PO 09/01/17 08:45 09/01/17 08:57 (Ativan Inj) 1 mg Q6H PRN IM 09/01/17 08:45 (Tylenol) 650 mg Q4H PRN PO 09/01/17 08:45 (Milk Of Magnesia Liq) 30 ml DAILY PRN PO 09/01/17 08:45 (Mag-Al Plus Susp Liq) 30 ml Q6H PRN PO 09/01/17 08:45 (Habitrol 21 Mg Patch.24 Hr) 1 patch DAILY T-DERMAL 09/01/17 09:00 (Haldol) 5 mg BID PO 09/01/17 09:00 09/01/17 08:56 Miscellaneous Information 1 HS T-DERMAL 09/01/17 21:00 Social History Patient reports that he is single. Domiciled along in [place] [place]. No children. High school educated. On disability. Honorable discharge from the [employer]. No history of combat. Denies a history of violent crime. Denies any access to guns or firearms. Patient's Strengths (min. 2) Apparently the patient has outpatient psychiatric care in [facility] Physical Exam The patient is psychomotor agitated, but no tremors, no EPS, no gait disturbance Vital Signs Vital Signs Date Time Temp Pulse Resp B/P (MAP) Pulse Ox O2 Delivery O2 Flow Rate FiO2 09/01/17 10:53 09/01/17 04:53 120 20 100 Room Air Lab Results Test 08/31/17 18:45 09/01/17 03:16 White Blood Count 11.3 TH/MM3 Red Blood Count 4.80 MIL/MM3 Hemoglobin 14.7 GM/DL Hematocrit 44.1 % Mean Corpuscular Volume 91.9 FL Mean Corpuscular Hemoglobin 30.6 PG Mean Corpuscular Hemoglobin Concent 33.3 % Red Cell Distribution Width 15.0 % Platelet Count 302 TH/MM3 Mean Platelet Volume 9.6 FL Neutrophils (%) (Auto) 72.6 % Lymphocytes (%) (Auto) 20.0 % Monocytes (%) (Auto) 5.8 % Eosinophils (%) (Auto) 0.5 % Basophils (%) (Auto) 1.1 % Neutrophils # (Auto) 8.2 TH/MM3 Lymphocytes # (Auto) 2.3 TH/MM3 Monocytes # (Auto) 0.7 TH/MM3 Eosinophils # (Auto) 0.1 TH/MM3 Basophils # (Auto) 0.1 TH/MM3 CBC Comment DIFF FINAL Differential Comment Blood Urea Nitrogen 23 MG/DL Creatinine 1.96 MG/DL Random Glucose 116 MG/DL Total Protein 8.2 GM/DL Albumin 4.2 GM/DL Calcium Level 9.3 MG/DL Alkaline Phosphatase 101 U/L Aspartate Amino Transf (AST/SGOT) 19 U/L Alanine Aminotransferase (ALT/SGPT) 21 U/L Total Bilirubin 0.4 MG/DL Sodium Level 145 MEQ/L Potassium Level 4.4 MEQ/L Chloride Level 114 MEQ/L Carbon Dioxide Level 23.0 MEQ/L Anion Gap 8 MEQ/L Estimat Glomerular Filtration Rate 35 ML/MIN Thyroid Stimulating Hormone 3rd Gen 3.500 uIU/ML Ethyl Alcohol Level LESS THAN 3 MG/DL Urine Opiates Screen NEG Urine Barbiturates Screen NEG Urine Amphetamines Screen NEG Urine Benzodiazepines Screen NEG Urine Cocaine Screen NEG Urine Cannabinoids Screen NEG Assessment & Plan Problem List: (1) Schizoaffective disorder, bipolar type ICD Codes: F25.0 - Schizoaffective disorder, bipolar type Status: Acute Assessment & Plan: Psychiatric evaluation today I find a patient that is poorly cooperative, very disorganized, tangential, verbally incoherent. At the same time the patient is very hostile and aggressive, he has stated that he does not speak with Non-white doctors, but most of his speech is intelligible. Patient seems to be also quite delusional, he has stated that he was not born, he will never , that he is Kirill Frantz. He is stated in the ER that he wanted to kill "non-white people" multiple occasions. He has multiple scratches in his face, his arms, also in his back, but he is unable to clarify the precedence, but seems to me that they could be actually self-inflicted. Last night apparently the patient was very difficult to redirect, talking to himself, very loud in the unit, and had to be medicated with ETO's in 2 occasions. This is a patient with psychiatric history of schizoaffective disorder, cocaine use disorder, his U tox is positive for cocaine today, multiple psychiatric hospitalization, he has history of aggressive behavior. Patient will be admitted in psychiatry given his level of psychosis and aggressive behavior. Patient has an elevated risk of danger to self and others at this moment. Will be started in Haldol 5 mg twice daily. Will be ordered clonidine 0.2 mg stat for hypertension. Placed in assault precautions. Consult hospitalist to address hypertension, psychiatry for second opinion. No collateral information could be reached at this moment. Assessment & Plan Estimated LOS: Moisés Combs MD September 01, 2017 12:50
[2017-09-01] MEDS: NICOTINE 21 MG/24 HR PATCH T-DERMAL SCH (14:12)
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
[2017-09-01] MEDS: REMOVE OLD NICODERM (NICOTINE) PATCH T-DERMAL SCH (20:59)
[2017-09-02 06:02] VITALS: BP 160/90; PULSE 107; RESP 18; TEMP 98.3; O2SAT 98
[2017-09-02] MEDS: NICOTINE 21 MG/24 HR PATCH T-DERMAL SCH (08:49)
[2017-09-02] MEDS: amLODIPine BESYLATE 5 MG TAB PO SCH (08:50)
[2017-09-02] MEDS: HALOPERIDOL 5 MG TAB PO SCH ×2 (08:50→21:34)
[2017-09-02 10:08] LABS: AUTOMATED NEUTROPHIL # 5.2 TH/MM3 (1.8-7.7); BASOPHIL # 0.1 TH/MM3 (0-0.2); BASOPHIL % 1.3 % (0.0-2.0); EOSINOPHIL # 0.2 TH/MM3 (0-0.4); HEMOGLOBIN 13.9 GM/DL (13.0-17.0); LYMPH % 27.8 % (9.0-44.0); LYMPHOCYTE # 2.3 TH/MM3 (1.0-4.8); MEAN CELL VOLUME 91.9 FL (80.0-100.0); MEAN CORPUSCULAR HEMOGLOBIN 30.4 PG (27.0-34.0); MEAN CORPUSCULAR HGB CONC 33.1 % (32.0-36.0); MEAN PLATELET VOLUME 10.1 FL (7.0-11.0); MONO % 5.6 % (0.0-8.0); MONOCYTE # 0.5 TH/MM3 (0-0.9); NEUT % 63.3 % (16.0-70.0); PLATELET COUNT 268 TH/MM3 (150-450); RED BLOOD COUNT 4.57 MIL/MM3 (4.50-5.90); RED CELL DISTRIBUTION WIDTH 14.8 % (11.6-17.2); WHITE BLOOD COUNT 8.3 TH/MM3 (4.0-11.0)
[2017-09-02 10:49] LABS: BICARBONATE 23.3 MEQ/L (21.0-32.0); BLOOD UREA NITROGEN 33 MG/DL (7-18); CALCIUM 8.8 MG/DL (8.5-10.1); CHLORIDE 112 MEQ/L (98-107); CREATININE 1.83 MG/DL (0.60-1.30); GLOMERULAR FILTRATION RATE 38 ML/MIN (>89); GLUCOSE,RANDOM 76 MG/DL (74-106); SODIUM (NA) 145 MEQ/L (136-145)
[2017-09-02 10:50] LABS: CHOLESTEROL 178 MG/DL (120-200); TRIGLYCERIDES 119 MG/DL (42-150)
[2017-09-02 10:51] LABS: CHOLESTEROL/ HDL RATIO 3.51 RATIO; HDL CHOLESTEROL 50.6 MG/DL (40.0-60.0); LDL CHOLESTEROL 104 MG/DL (0-99)
[2017-09-02 11:39] LABS: HEMOGLOBIN A1C 5.6 % (4.3-6.0)
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
[2017-09-02 16:30] VITALS: BP 143/67; PULSE 95; RESP 19; TEMP 99.4; O2SAT 97
[2017-09-02] MEDS: LORazepam 1 MG TAB PO PRN ×2 (17:58→21:34)
[2017-09-02] MEDS: REMOVE OLD NICODERM (NICOTINE) PATCH T-DERMAL SCH (21:00)
[2017-09-03 05:54] VITALS: BP 143/90; PULSE 98; RESP 20; TEMP 97.2; O2SAT 99
[2017-09-03] MEDS: HALOPERIDOL 5 MG TAB PO SCH ×2 (09:00→20:33)
[2017-09-03] MEDS: NICOTINE 21 MG/24 HR PATCH T-DERMAL SCH (09:00)
[2017-09-03] MEDS: amLODIPine BESYLATE 5 MG TAB PO SCH (09:20)
--- NOTE | 2017-09-03 11:03 | HHI.PYPN ---
Subjective Remarks Pt seen and discussed with staff. He slept well last night. He remains disorganized in thought process but fixation on sikh delusions has decreased today. No agitation today. No SI/HI Mental Status Examination Appearance: Disheveled Consciousness: Alert Orientation: Person, Place, Date/Time Motor Activity: Normal gait Speech: Pressured Language: Perseveration Fund of Knowledge: Inadequate Attention and Concentration: Easily Distracted Memory: Unremarkable Mood: Manic Affect: Labile Thought Process & Associations: Disorganized Thought Content: Bizarre thinking, Delusional Hallucination Type: Auditory Delusion Type: Bizarre, Paranoid Suicidal Ideation: No Suicidal Plan: No Suicidal Intention: No Homicidal Ideation: No Homicidal Plan: No Homicidal Intention: No Insight: Poor Judgment: Poor Results Vitals/IOs Vital Signs Date Time Temp Pulse Resp B/P (MAP) Pulse Ox O2 Delivery O2 Flow Rate FiO2 09/03/17 05:54 97.2 98 20 143/90 (107) 99 09/01/17 04:53 Room Air Assessment & Plan Problem List: (1) Schizoaffective disorder, bipolar type ICD Codes: F25.0 - Schizoaffective disorder, bipolar type Status: Acute Assessment & Plan Continue current tx plan Estimated LOS: days Justification for Cont. Inpt. impairments in reality testing and self care Liss Bennett MD September 03, 2017 11:03
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
[2017-09-03] MEDS: LORazepam 1 MG TAB PO PRN ×2 (14:16→20:34)
[2017-09-03 17:45] VITALS: BP 131/80; PULSE 94; RESP 20; TEMP 97.5; O2SAT 100
[2017-09-03] MEDS: REMOVE OLD NICODERM (NICOTINE) PATCH T-DERMAL SCH (21:00)
[2017-09-04 06:42] VITALS: BP 137/90; PULSE 103; RESP 18; TEMP 97.6; O2SAT 98
[2017-09-04] MEDS: HALOPERIDOL 5 MG TAB PO SCH ×2 (08:40→20:21)
[2017-09-04] MEDS: NICOTINE 21 MG/24 HR PATCH T-DERMAL SCH (08:40)
[2017-09-04] MEDS: REMOVE OLD NICODERM (NICOTINE) PATCH T-DERMAL SCH ×2 (08:41→20:22)
[2017-09-04 10:24] LABS: BICARBONATE 25.1 MEQ/L (21.0-32.0); CALCIUM 9.3 MG/DL (8.5-10.1); CREATININE 1.76 MG/DL (0.60-1.30)
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
--- NOTE | 2017-09-04 11:26 | HHI.PYPN ---
Subjective Remarks Patient was seen today for psychiatric evaluation. The documentation from [facility] psychiatrist was reviewed. Also recommendations from medical team were appreciated. Psychiatric evaluation today the patient is calm, cooperative, pleasant and in a very different than last Monday. He reports feeling much better, reports good mood. Patient says that he feels safe and very good here in the unit. He reports good appetite, good sleep, good level of energy. The patient has been participating appropriately in therapies. He denies suicidal and homicidal ideation, he denies visual and auditory hallucinations. No agitation, no aggressive behavior, no behavioral dysregulation reported. He has been compliant his medications, no significant side effects. Review of Systems Except as stated in HPI: all other systems reviewed are Neg Mental Status Examination Appearance: Disheveled Consciousness: Alert Orientation: Person, Place, Date/Time Motor Activity: Normal gait Speech: Pressured Language: Perseveration Fund of Knowledge: Inadequate Attention and Concentration: Easily Distracted Memory: Unremarkable Mood: Manic Affect: Labile Thought Process & Associations: Intact Thought Content: Appropriate, Delusional Hallucination Type: None Delusion Type: None Suicidal Ideation: No Suicidal Plan: No Suicidal Intention: No Homicidal Ideation: No Homicidal Plan: No Homicidal Intention: No Insight: Fair Judgment: Impulsive Results Labs Test 09/04/17 09:10 Blood Urea Nitrogen 33 MG/DL Creatinine 1.76 MG/DL Random Glucose 73 MG/DL Calcium Level 9.3 MG/DL Sodium Level 148 MEQ/L Potassium Level 4.6 MEQ/L Chloride Level 116 MEQ/L Carbon Dioxide Level 25.1 MEQ/L Anion Gap 7 MEQ/L Estimat Glomerular Filtration Rate 40 ML/MIN Vitals/IOs Vital Signs Date Time Temp Pulse Resp B/P (MAP) Pulse Ox O2 Delivery O2 Flow Rate FiO2 09/04/17 06:42 97.6 103 18 137/90 (106) 98 09/01/17 04:53 Room Air Assessment & Plan Problem List: (1) Schizoaffective disorder, bipolar type ICD Codes: F25.0 - Schizoaffective disorder, bipolar type Status: Acute Assessment & Plan: Patient is currently presenting a good response to psychotropic regimen. Patient seems to be less paranoid and disorganized today. Continue current psychotropic regimen. Support and motivation provided. Assessment & Plan Estimated LOS: days Justification for Cont. Inpt. The patient has an elevated risk to decompensate at the lower level of care. Ted,Moisés B. MD September 04, 2017 11:26
[2017-09-04 15:52] VITALS: BP 120/81; PULSE 94; RESP 18; TEMP 98.8; O2SAT 98
[2017-09-05 06:41] VITALS: BP 123/74; PULSE 77; RESP 18; TEMP 97.5; O2SAT 98
[2017-09-05] MEDS: HALOPERIDOL 5 MG TAB PO SCH (08:43)
[2017-09-05] MEDS: REMOVE OLD NICODERM (NICOTINE) PATCH T-DERMAL SCH (08:50)
[2017-09-05] MEDS: NICOTINE 21 MG/24 HR PATCH T-DERMAL SCH (08:50)
[2017-09-05] MEDS ORDERED: HALO5TAB PO (11:37)
--- NOTE | 2017-09-05 11:43 | HHI.DS ---
Psychiatry Discharge Summary Inpatient Psychiatric care?: Yes Advance Directive: No Reason Not Provided: does not have Mental Health AdvanceDirective: No Health Care Proxy: No Admission Admission Date September 01, 2017 at 08:44 Admission Diagnosis: (1) Schizoaffective disorder, bipolar type ICD Code: F25.0 - Schizoaffective disorder, bipolar type Brief History Pt seen and discussed with staff. Chart reviewed. He was admitted to [facility] yesterday under a BA secondary to psychosis and self harm. Staff report that pt has been engaging in bizarre behavior (laughing inappropriately) and has been very paranoid and delusional. He reported to night staff that he was Kirill Landry. Today he told RN that his home was possessed by BUKA and is haunted and he could not return there. He has superficial scracth lowry on arms and chest that he did due to "haunted house." He is loud and intrusive on unit and rambles non-stop with pressured speech. He appears to be responding to internal stimuli and makes numerous bizarre and paranoid statements. Tobacco Use In Past 30 Days: 5 or More Cigarettes/Day Alcohol Use: Never Results Blood Pressure 123 / 74 Vital Signs Date Time Temp Pulse Resp B/P (MAP) Pulse Ox O2 Delivery O2 Flow Rate FiO2 09/05/17 06:41 97.5 77 18 123/74 (90) 98 Laboratory Tests Test 09/04/17 09:10 Blood Urea Nitrogen 33 MG/DL (7-18) Creatinine 1.76 MG/DL (0.60-1.30) Random Glucose 73 MG/DL (74-106) Sodium Level 148 MEQ/L (136-145) Chloride Level 116 MEQ/L (98-107) Estimat Glomerular Filtration Rate 40 ML/MIN (>89) Laboratory Results Test 09/02/17 08:39 Cholesterol Level 178 MG/DL (120-200) HDL Cholesterol 50.6 MG/DL (40.0-60.0) Hemoglobin A1c 5.6 % (4.3-6.0) LDL Cholesterol 104 MG/DL (0-99) Triglycerides Level 119 MG/DL (42-150) Summary of Procedures None Pending results at discharge: No Medications # of Antipsychotic meds at D/C: 1 Appropriate >1 Antipsych meds?: 1 Approp Antipsych med options 1 - Minimum of three failed multiple trials of monotherapy. 2 - Documented plan to taper to monotherapy due to previous use of multiple meds OR cross-taper in progress at D/C. 3 - Documentation of augmentation of Clozapine. 4 - Justification other than those listed in allowable values 1-3, document here : Discharge Discharge Date: September 05, 2017 Discharge Diagnosis: Discharge Disposition: Discharge Home Discharge Instructions Diet Instructions: As Tolerated, No Restrictions Scheduled Appointment: John Caban Peyton Appointment Date: September 07, 2017 Appointment Time: 8am-3pm Discharge Time > 30 minutes Mental Status Examination Appearance: Disheveled Consciousness: Alert Orientation: Person, Place, Date/Time Motor Activity: Normal gait Speech: Pressured Language: Perseveration Fund of Knowledge: Inadequate Attention and Concentration: Easily Distracted Memory: Unremarkable Mood: Manic Affect: Labile Thought Process & Associations: Intact Thought Content: Appropriate, Delusional Hallucination Type: None Delusion Type: None Suicidal Ideation: No Suicidal Plan: No Suicidal Intention: No Homicidal Ideation: No Homicidal Plan: No Homicidal Intention: No Insight: Fair Judgment: Impulsive Discharge/Advance Care Plan Health Problems: (1) Schizoaffective disorder, bipolar type Goals to promote your health * To prevent worsening of your condition and complications * To maintain your health at the optimal level Directions to meet your goals Take your medications as prescribed Follow your dietary instruction Follow activity as directed Keep your appointments as scheduled Take your immunizations and boosters as scheduled If your symptoms worsen call your PCP, if no PCP go to Urgent Care Center or Emergency Room For 07/11 questions related to your inpatient stay or results of tests pending at discharge, please contact Dr. Moisés Jean at Smoking is Dangerous to Your Health. Avoid second hand smoking Moisés Jean MD September 05, 2017 11:43
== END 2017-09-05 15:12 | disposition home or self-care (01) | DRG 885 ==
LOC: NEPJ 18:35 → NEDA 09-01 08:44 → H270 09-01 10:15
PROVIDERS: ADMIT Psychiatry & Neurology Psychiatry; ATTEND Psychiatry & Neurology Psychiatry
DX: F25.0 Schizoaffective disorder, bipolar type (principal); E87.0 Hyperosmolality and hypernatremia; N18.3 Chronic kidney disease, stage 3 (moderate); I12.9 Hypertensive chronic kidney disease with stage 1 through stage 4 chronic kidney disease, or unspecified chronic kidney disease; F14.90 Cocaine use, unspecified, uncomplicated; D72.829 Elevated white blood cell count, unspecified; F17.210 Nicotine dependence, cigarettes, uncomplicated; H54.61 Unqualified visual loss, right eye, normal vision left eye; Z79.899 Other long term (current) drug therapy
CPT/HCPCS: 80048; 80053; 80061; 80307; 83036; 84443; 85025; 99285

== ENCOUNTER 2017-12-30 20:01 | Inpatient (IN) ==
[2017-12-30] MEDS ORDERED: Haloperidol Inj 5 MG/ML Ampul IM ONE (20:32)
[2017-12-30 20:53] LABS: Baso # (Auto) 0.1 th/mm3 (0.0-0.2); Eos # (Auto) 0.1 th/mm3 (0.0-0.4); Eos % (Auto) 0.7 % (0.0-4.0); Hematocrit 41.7 % (39.0-51.0); Lymph # (Auto) 2.5 th/mm3 (1.0-4.8); Mean Corpuscular HGB Conc 33.6 % (32.0-36.0); Mean Corpuscular Hemoglobin 31.1 pg (27.0-34.0); Mean Corpuscular Volume 92.7 fL (80.0-100.0); Mean Platelet Volume 9.2 fL (7.0-11.0); Mono % (Auto) 7.9 % (0.0-8.0); Neut # (Auto) 8.4 th/mm3 (1.8-7.7); Neut % (Auto) 69.4 % (16.0-70.0); Platelet Count 314 th/mm3 (150-450); Red Cell Distribution Width 14.9 % (11.6-17.2); White Blood Count 12.1 th/mm3 (4.0-11.0)
[2017-12-30 21:24] LABS: Albumin 4.2 g/dL (3.4-5.0); Anion Gap 12 meq/L (5-15); Aspartate Aminotransferase 35 U/L (15-37); Blood Urea Nitrogen 32 mg/dL (7-18); Calcium 8.9 mg/dL (8.5-10.1); Carbon Dioxide 16.9 meq/L (21.0-32.0); Chloride 116 meq/L (98-107); Glomerular Filtration Rate 22 mL/min (>89); Glucose,Random 95 mg/dL (74-106); Potassium 4.1 meq/L (3.5-5.1); Sodium 145 meq/L (136-145)
[2017-12-30 21:35] LABS: Alanine Aminotransferase 23 U/L (12-78); Alkaline Phosphatase 90 U/L (45-117); Total Protein 8.2 g/dL (6.4-8.2)
[2017-12-30] MEDS ORDERED: Sod Chloride 0.9% Inj 1,000 ML IV.SIG SCH (22:00)
[2017-12-31 01:13] LABS: Carbon Dioxide 21.9 meq/L (21.0-32.0)
--- NOTE | 2017-12-31 01:32 | ED ---
HPI General Chief complaint: Psychiatric Symptoms Stated complaint: Pysch Eval/HHPD Time Seen by Provider: 12/30/17 20:21 History of Present Illness HPI narrative: Patient is a 62-year-old male presents to the emergency department for evaluation under Rodriguez act, patient quite bizarre on arrival, acting intoxicated and belligerent. He is screaming profanities and then Hallelujah at the next instant. Patient has been here before and is supposed to be on Haldol, appears unkempt and probably homeless, I doubt that he has had any adherence to medications. He is unable to provide any of his history on arrival. Related Data Home Medications Medication Instructions Recorded Confirmed Unable to Obtain Home Meds 12/30/17 12/30/17 Allergies Allergy/AdvReac Type Severity Reaction Status Date / Time No Known Allergies Allergy Unverified 12/30/17 20:22 Review of Systems ROS Unobtainable ROS Unobtainable: unobtainable due to mental condition PMFSH Medical History Medical History Medical history unknown (Acute) Surgical history unknown (Acute) Social History Social History Substance History: Active Abuse Second Hand Smoke Exposure: Yes Smoking Status: Current every day smoker Tobacco Type: Cigarettes How Often Do You Have a Drink Containing Alcohol: 4 or more times a week Recent Travel in [place] within the Last 8 Weeks: No Recent Out of Country Travel within the Last 8 Weeks: No Substance Abuse Detail Marijuana: Substance Use Status: Active Route Used Substance Abuse: By Mouth and Inhalation Reason for Use: Calm Down, Feels Good and Get High Crack/Cocaine: Substance Use Status: Active Immunization History Tetanus Immunization: Unsure Hx Influenza Vaccine This Season: No Exam Narrative Exam Narrative: GENERAL: Well-developed thin male who is belligerent and screaming profanities as above. SKIN: Focused skin assessment warm/dry. Do not see any external signs of trauma on his person. HEAD: Atraumatic. Normocephalic. EYES: Pupils equal and round. No scleral icterus. No injection or drainage. ENT: No nasal bleeding or discharge. Mucous membranes pink and moist. NECK: Trachea midline. No JVD. CARDIOVASCULAR: Regular rate and rhythm. No murmur appreciated. RESPIRATORY: No accessory muscle use. Clear to auscultation. Breath sounds equal bilaterally. GASTROINTESTINAL: Abdomen soft, non-tender, nondistended. Hepatic and splenic margins not palpable. MUSCULOSKELETAL: No obvious deformities. No clubbing. No cyanosis. No edema. NEUROLOGICAL: Awake and alert. No obvious cranial nerve deficits. Motor grossly within normal limits. Normal speech. PSYCHIATRIC: Appropriate mood and affect; insight and judgment normal. Course Initial Documented Vital Signs Temperature 98.9 F 12/30/17 20:23 Pulse Rate 112 H 12/30/17 20:23 Respiratory Rate 20 12/30/17 20:23 Blood Pressure 171/80 H 12/30/17 20:23 Last Documented Vital Signs Temperature 98.9 F 12/30/17 20:23 Pulse Rate 61 12/30/17 23:00 Respiratory Rate 18 12/30/17 23:00 Blood Pressure 126/79 12/30/17 23:00 Pulse Oximetry 100 12/30/17 23:00 Medical Decision Making MDM Narrative Medical decision making narrative: Patient roomed in the emergency department. He was acting intoxicated and belligerent on arrival, alcohol level is actually negative. He is not provided a drug screen as of yet. His labs do show an acute kidney injury, his creatinine appears to run between 1. 6 and 1.7 today' s 2.9. He is been as high as 1.9 in the past year. He does also have a metabolic acidosis, liter normal saline was given and he corrected some blood not much. I think that he would benefit from observation status for continued IV hydration. Patient was discussed with Dr. Alas who is agreeable. He was restrained for a short period of time in the emergency department and chemically sedated. Vital signs been stable otherwise. He is under a Rodriguez act. Medical Screen Exam Complete: Yes Emergency Medical Condition: Yes Differential Diagnosis Differential Diagnosis: Psychosis, dehydration, acidosis, intoxication. Lab Data Result diagrams: 12/30/17 20:25 12/30/17 23:42 Lab Results 12/30/17 12/30/17 12/30/17 Range/Units 20:25 20:25 23:42 WBC 12.1 H (4.0-11.0) th/mm3 RBC 4.50 (4.50-5.90) mil/mm3 Hgb 14.0 (13.0-17.0) gm/dL Hct 41.7 (39.0-51.0) % MCV 92.7 (80.0-100.0) fL MCH 31.1 (27.0-34.0) pg MCHC 33.6 (32.0-36.0) % RDW 14.9 (11.6-17.2) % Plt Count 314 (150-450) th/mm3 MPV 9.2 (7.0-11.0) fL Neut % (Auto) 69.4 (16.0-70.0) % Lymph % (Auto) 21.0 (9.0-44.0) % Throckmorton % (Auto) 7.9 (0.0-8.0) % Eos % (Auto) 0.7 (0.0-4.0) % Baso % (Auto) 1.0 (0.0-2.0) % Neut # (Auto) 8.4 H (1.8-7.7) th/mm3 Lymph # (Auto) 2.5 (1.0-4.8) th/mm3 Throckmorton # (Auto) 1.0 H (0.0-0.9) th/mm3 Eos # (Auto) 0.1 (0.0-0.4) th/mm3 Baso # (Auto) 0.1 (0.0-0.2) th/mm3 WBC Differential . Differential Comment Auto diff final Sodium 145 149 H (136-145) meq/L Potassium 4.1 4.0 (3.5-5.1) meq/L Chloride 116 H 117 H (98-107) meq/L Carbon Dioxide 16.9 L 21.9 (21.0-32.0) meq/L Anion Gap 12 10 (5-15) meq/L BUN 32 H 32 H (7-18) mg/dL Creatinine 2.96 H 2.61 H (0.60-1.30) mg/dL Estimated GFR 22 L 25 L (>89) mL/min Random Glucose 95 100 (74-106) mg/dL Calcium 8.9 8.0 L D (8.5-10.1) mg/dL Total Bilirubin 0.6 (0.2-1.0) mg/dL AST 35 (15-37) U/L ALT 23 (12-78) U/L Alkaline Phosphatase 90 (45-117) U/L Total Protein 8.2 (6.4-8.2) g/dL Albumin 4.2 (3.4-5.0) g/dL TSH 3.380 (0.358-3.740) uIU/mL Serum Alcohol Less than 3 (0-5) mg/dL Discharge Plan Discharge Disposition Patient Disposition: 30 Still Patient Discharge Condition Condition: Stable Discharge Details Diagnosis: Acute psychosis, LEANDRA (acute kidney injury), Metabolic acidosis Physicians Team ED Provider: Geovanni Whitney Primary Care Provider: UNKNOWN, Rxs /Orders / Referrals /Forms Prescriptions: No Action Unable to Obtain Home Meds RF: 0 Discharge Interventions Interventions: Vital Signs Last Done: 12/31/17 00:00 Status ED Status: Admitted Patient
[2017-12-31] MEDS ORDERED: Bisacodyl 10 MG Supp RECTAL PRN (01:48)
[2017-12-31] MEDS ORDERED: Acetaminophen 325 MG Tablet PO PRN (01:48)
[2017-12-31] MEDS: Sod Chloride 0.9% Inj 1,000 ML IV.CONT SCH ×2 (02:27→12:15)
--- NOTE | 2017-12-31 03:46 | P.HPIM ---
History of Present Illness Primary Care Physician: UNKNOWN History of Present Illness: This is a 62-year-old male with PMH of Schizoaffective Disorder who was brought to the ER by EMS under Rodriguez Act for suicidal ideation and bizarre behavior. On arrival, pt very agitated, requiring Haldol and Ativan. Per report, pt told Police he ran out of his medications, but unable to say which ones. Per review of previous records, pt on Haldol 5mg PO bid and Olanzapine 20mg qhs. Pt not providing much history at this time. On arrival, BP 171/80, HR 112, O2 sat 98% on RA, Afebrile. WBC 12.1. Creatinine 2.96, previously 1.76 on 09/04/2017. Alcohol negative. - Diagnosis (1) Suicidal ideation (2) LEANDRA (acute kidney injury) (3) Leukocytosis Review of Systems PAST FAMILY HISTORY: Unknown unobtainable due to mental status PMFSH - History History Provided By: Patient - Medical History Medical History: Medical History (Last Updated 12/30/17 @ 20:26 by Rah Hewitt) Medical history unknown Surgical history unknown - Tobacco History Second Hand Smoke Exposure: Yes Tobacco Use In Past 30 Days: Yes Smoking Status: Current every day smoker Tobacco Type: Cigarettes - Alcohol History How Often Do You Have a Drink Containing Alcohol: 4 or more times a week - Substance Use History Substance History: Active Abuse - Substance Use Type Marijuana Status: Active Route Used: By Mouth, Inhalation Reason for Use: Calm Down, Feels Good, Get High Crack/Cocaine Status: Active - Travel History Recent Travel in the [facility] Within the Last 8 Weeks: No Recent Travel Out of the Country Within the Last 8 Weeks: No - Immunization History Tetanus Immunization: Unsure Hx Influenza Vaccine This Season: No Medications and Allergies Active Medications: Active Medications Acetaminophen (Tylenol) 650 mg PO Q4H PRN PRN Reason: Temp > 100.4 Al Hydroxide/Mg Hydroxide (Milk Of Magnesia Liq) 30 ml PO Q12H PRN PRN Reason: Mild Constipation Bisacodyl (Dulcolax Supp) 10 mg RECTAL DAILY PRN PRN Reason: SEVERE CONSITIPATION Sodium Chloride (Ns Inj) 1,000 mls @ 0 mls/hr IV.SIG BOLUS NINO Last Infusion: 12/30/17 23:46 Dose: Infused Sodium Chloride (Ns Inj) 1,000 mls @ 100 mls/hr IV.CONT .Q10H [facility] Last Admin: 12/31/17 02:27 Dose: 100 mls/hr Lactulose (Lactulose Liq) 30 ml PO DAILY PRN PRN Reason: SEVERE CONSITIPATION Ondansetron HCl (Zofran Inj) 4 mg IV.PUSH Q6H PRN PRN Reason: NAUSEA OR VOMITING Senna/Docusate Sodium (Mitzy-Colace) 1 tab PO BID [facility] Sennosides (Senokot) 17.2 mg PO Q12H PRN PRN Reason: Moderate Constipation Allergies Allergy/AdvReac Type Severity Reaction Status Date / Time No Known Allergies Allergy Unverified 12/30/17 20:22 Home Medications Medication Instructions Recorded Confirmed Type Unable to Obtain Home Meds 12/30/17 12/30/17 History Exam Vital signs: Vital Signs 12/30/17 20:23 12/30/17 20:26 12/30/17 21:26 Temperature 98.9 F Pulse Rate 112 H Respiratory Rate 20 18 18 Blood Pressure 171/80 H Pulse Oximetry 12/30/17 22:00 12/30/17 23:00 12/31/17 00:00 Temperature Pulse Rate 61 Respiratory Rate 18 18 18 Blood Pressure 126/79 Pulse Oximetry 100 12/31/17 02:49 Temperature 97.7 F Pulse Rate 85 Respiratory Rate 18 Blood Pressure 160/85 H Pulse Oximetry 99 Intake & Output 12/30/17 12/30/17 12/31/17 06:59 18:59 06:59 Intake Total 1000 / 1000 Balance 1000 / 1000 Weight 79.379 kg Intake: IV 1000 / 1000 NS Inj 1,000 ML @ Wide Open IV. 1000 / 1000 SIG BOLUS [facility] Rx#:[id number] Narrative: PE: GENERAL: Middle-aged white male in no acute distress, disheveled, unkept, responding to internal stimuli. SKIN: Focused skin assessment warm and dry. HEENT: PERRLA, EOMI. No scleral icterus or conjunctival pallor. No lid lag or facial droop. CARDIOVASCULAR: Regular rate and rhythm. No obvious murmurs to auscultation. No chest tenderness to palpation. RESPIRATORY: No obvious rhonchi or wheezing. Clear to auscultation. Breath sounds equal bilaterally. GASTROINTESTINAL: Abdomen soft, non-tender, nondistended. BS normal. MUSCULOSKELETAL: Extremities without clubbing, cyanosis, or edema. No obvious deformities. NEUROLOGICAL: Awake, alert. No focal neurologic deficits. Moving both upper and lower extremities spontaneously. PSYCHIATRIC: Appropriate mood and affect. Insight and judgment normal. Results - Labs CBC & Chem 7: 12/30/17 20:25 12/30/17 23:42 Labs: Short CBC 12/30/17 Range/Units 20:25 WBC 12.1 H (4.0-11.0) th/mm3 Hgb 14.0 (13.0-17.0) gm/dL Hct 41.7 (39.0-51.0) % Plt Count 314 (150-450) th/mm3 BMP 12/30/17 12/30/17 20:25 23:42 Sodium 145 149 H Potassium 4.1 4.0 Chloride 116 H 117 H Carbon Dioxide 16.9 L 21.9 BUN 32 H 32 H Creatinine 2.96 H 2.61 H Calcium 8.9 8.0 L D Liver Function 12/30/17 Range/Units 20:25 Total Bilirubin 0.6 (0.2-1.0) mg/dL AST 35 (15-37) U/L ALT 23 (12-78) U/L Alkaline Phosphatase 90 (45-117) U/L Albumin 4.2 (3.4-5.0) g/dL Caprini VTE Risk Assessment Caprini VTE Risk Assessment: No/Low Risk (score <= 1) Caprini Risk Assessment Model: Point Value = 1 Point Value = 2 Point Value = 3 Point Value = 5 Age 41-60 Minor surgery BMI > 25 kg/m2 Swollen legs Varicose veins or History of unexplained or recurrent spontaneous Oral contraceptives or hormone replacement Sepsis (< 1 month) Serious lung disease, including pneumonia (< 1 month) Abnormal pulmonary function Acute myocardial infarction Congestive heart failure (< 1 month) History of inflammatory bowel disease Medical patient at bed rest Age 61-74 Arthroscopic surgery Major open surgery (> 45 min) Laparoscopic surgery (> 45 min) Malignancy Confined to bed (> 72 hours) Immobilizing plaster cast Central venous access Age >= 75 History of VTE Family history of VTE Factor V Leiden Prothrombin [id number] Lupus anticoagulant Anticardiolipin antibodies Elevated serum homocysteine Heparin-induced thrombocytopenia Other congenital or acquired thrombophilia Stroke (< 1 month) Elective arthroplasty Hip, pelvis, or leg fracture Acute spinal cord injury (< 1 month) Prophylaxis Regimen: Total Risk Factor Score Risk Level Prophylaxis Regimen 0-1 Low Early ambulation 2 Moderate Order ONE of the following: *Sequential Compression Device (SCD) *Heparin 5000 units SQ BID 3-4 Higher Order ONE of the following medications: *Heparin 5000 units SQ TID *Enoxaparin/Lovenox 40 mg SQ daily (WT < 150 kg, CrCl > 30 mL/min) *Enoxaparin/Lovenox 30 mg SQ daily (WT < 150 kg, CrCl > 10-29 mL/min) *Enoxaparin/Lovenox 30 mg SQ BID (WT < 150 kg, CrCl > 30 mL/min) AND/OR *Sequential Compression Device (SCD) 5 or more Highest Order ONE of the following medications: *Heparin 5000 units SQ TID (Preferred with Epidurals) *Enoxaparin/Lovenox 40 mg SQ daily (WT < 150 kg, CrCl > 30 mL/min) *Enoxaparin/Lovenox 30 mg SQ daily (WT < 150 kg, CrCl > 10-29 mL/min) *Enoxaparin/Lovenox 30 mg SQ BID (WT < 150 kg, CrCl > 30 mL/min) AND *Sequential Compression Device (SCD) Assessment and Plan - Assessment (1) Suicidal ideation Code(s): R45.851 - Suicidal ideations Status: Acute (2) LEANDRA (acute kidney injury) Code(s): N17.9 - Acute kidney failure, unspecified Status: Acute (3) Leukocytosis Code(s): D72.829 - Elevated white blood cell count, unspecified Status: Acute - Plan A/P: 1. Suicidal Ideation: brought in by Police under Rodriguez Act for suicidal ideation and bizarre behavior, h/o Schizoaffective Disorder, apparently off medications for unknown period of time. Consult Psychiatry, Wil. 2. LEANDRA: Creatinine 2.96, previously 1.76 on 09/04/17, check U/a and Urine Drug Screen, IVF for hydration, monitor I/O, repeat labs in am 3. Leukocytosis: WBC 12.1, no obvious source of infection, repeat labs in am. 4. DVT Prophylaxis: SCD/Teds 5. Social work for d/c planning as needed 6. Case discussed w/ ER physician at length, labs/records/imaging reviewed by me.
[2017-12-31 09:22] LABS: Calcium 8.6 mg/dL (8.5-10.1); Carbon Dioxide 21.4 meq/L (21.0-32.0); Potassium 4.1 meq/L (3.5-5.1)
[2017-12-31 09:23] LABS: Bilirubin,Urine Negative (Negative); Clarity,Urine Clear (Clear); Color,Urine Straw (Yellw/Straw); Glucose,Urine (UA) Negative (Negative); Leukocyte Esterase,Urine Negative (Negative); Mucus,Urine Few /lpf (Occasional); Nitrite,Urine Negative (Negative); Specific Gravity,Urine 1.004 (1.002-1.035)
[2017-12-31] MEDS: Senna/Docusate Sodium 8.6/50 MG Tablet PO SCH ×2 (09:55→20:49)
--- NOTE | 2017-12-31 16:04 | P.CONPSY ---
Provisional Diagnosis Admission Date: December 31, 2017 01:25 History of Present Illness Service: psychiatry Consult date: 12/31/17 Primary Care Provider: UNKNOWN Chief Complaint: see below History of Present Illness: This is a requested psychiatric consultation in the emergency room. Patient is a 62-year-old white male with an extensive history of psychosis. Patient was brought in to the ER with altered mental status and agitation. This morning per nursing, he received an ETO of Haldol Ativan and Benadryl and subsequently another dose of Ativan. Patient was observed responding to internal stimuli, talking to himself. There is for self-care deficit given his disheveled nature , noncompliance with his medication, and dehydration. Patient has poor insight concerning his history and does give a convoluted story. Though, he does admit to a history of psychosis and spending time in the [facility] in [place] in the 1970s. Patient denies any recent inpatient admissions in the past couple of years but is a poor historian. He does admit to outpatient treatment with somebody named Tank at the [facility]. Patient did describes a stable mood and denies depressive symptoms. Denies suicidal or homicidal ideation intent or plan. past psych: As noted above. He has a history of Haldol and is not sure what other medications he was on Social history: Patient admits to drinking 4-6 beers every week. He denies marijuana use. Denies other substance use. He says he is not homeless and lives with others but this is questionable. He is on disability. [facility] - History History Provided By: Patient - Medical History Medical History: Medical History (Last Updated 12/30/17 @ 20:26 by Rah Hewitt) Medical history unknown Surgical history unknown - Tobacco History Second Hand Smoke Exposure: Yes Tobacco Use In Past 30 Days: Yes Smoking Status: Current every day smoker Tobacco Type: Cigarettes - Alcohol History How Often Do You Have a Drink Containing Alcohol: 4 or more times a week - Substance Use History Substance History: Active Abuse - Substance Use Type Marijuana Status: Active Route Used: By Mouth, Inhalation Reason for Use: Calm Down, Feels Good, Get High Crack/Cocaine Status: Active Route Used: By Mouth Reason for Use: Calm Down, Feels Good - Travel History Recent Travel in the [place] Within the Last 8 Weeks: No Recent Travel Out of the Country Within the Last 8 Weeks: No - Immunization History Tetanus Immunization: Unsure Hx Influenza Vaccine This Season: No Medications and Allergies Active Medications: Active Medications Acetaminophen (Tylenol) 650 mg PO Q4H PRN PRN Reason: Temp > 100.4 Al Hydroxide/Mg Hydroxide (Milk Of Magnesia Liq) 30 ml PO Q12H PRN PRN Reason: Mild Constipation Bisacodyl (Dulcolax Supp) 10 mg RECTAL DAILY PRN PRN Reason: SEVERE CONSITIPATION Sodium Chloride (Ns Inj) 1,000 mls @ 0 mls/hr IV.SIG BOLUS [facility] Last Infusion: 12/30/17 23:46 Dose: Infused Sodium Chloride (Ns Inj) 1,000 mls @ 100 mls/hr IV.CONT .Q10H [facility] Last Infusion: 12/31/17 13:23 Dose: 0 mls/hr Lactulose (Lactulose Liq) 30 ml PO DAILY PRN PRN Reason: SEVERE CONSITIPATION Ondansetron HCl (Zofran Inj) 4 mg IV.PUSH Q6H PRN PRN Reason: NAUSEA OR VOMITING Senna/Docusate Sodium (Mitzy-Colace) 1 tab PO BID [facility] Last Admin: 12/31/17 09:55 Dose: Not Given Sennosides (Senokot) 17.2 mg PO Q12H PRN PRN Reason: Moderate Constipation Allergies Allergy/AdvReac Type Severity Reaction Status Date / Time No Known Allergies Allergy Unverified 12/30/17 20:22 Home Medications Medication Instructions Recorded Confirmed Type Unable to Obtain Home Meds 12/30/17 12/30/17 History Exam Vital signs: Vital Signs 12/30/17 20:23 12/30/17 20:26 12/30/17 21:26 Temperature 98.9 F Pulse Rate 112 H Respiratory Rate 20 18 18 Blood Pressure 171/80 H Pulse Oximetry 12/30/17 22:00 12/30/17 23:00 12/31/17 00:00 Temperature Pulse Rate 61 Respiratory Rate 18 18 18 Blood Pressure 126/79 Pulse Oximetry 100 12/31/17 02:49 12/31/17 08:00 12/31/17 11:31 Temperature 97.7 F 98.0 F 97.8 F Pulse Rate 85 59 L 69 Respiratory Rate 18 16 16 Blood Pressure 160/85 H 143/89 H 116/72 Pulse Oximetry 99 98 100 Intake & Output 12/30/17 12/31/17 12/31/17 18:59 06:59 18:59 Intake Total 1000 / 1000 1000 / 1000 Output Total 300 / 300 Balance 1000 / 1000 700 / 700 Weight 79.379 kg Intake: IV 1000 / 1000 1000 / 1000 NS Inj 1,000 ML @ 100 mls/hr IV 1000 / 1000 .CONT .Q10H NINO Rx#:[id number] NS Inj 1,000 ML @ Wide Open IV. 1000 / 1000 SIG BOLUS NINO Rx#:[id number] Output: Urine 300 / 300 Other: Weight On Admission 79.379 kg Mental Status Examination Appearance: Disheveled Consciousness: Alert Orientation: Person, Place Motor Activity: Normal gait Speech: Pressured, Rapid Language: Perseveration Fund of Knowledge: Inadequate Attention and Concentration: Adequate Memory: Impaired Mood: Appropriate Affect: Other (Elevated) Thought Process & Associations: Other (Flight of ideas) Thought Content: Bizarre thinking Hallucination Type: Auditory (Denies) Delusion Type: Paranoid (Responding to internal stimuli) Suicidal Ideation: No Suicidal Plan: No Suicidal Intention: No Homicidal Ideation: No Homicidal Plan: No Homicidal Intention: No Insight: Poor Judgment: Poor Assessment and Plan - Plan Plan: Estimated LOS: [] days I recommend transfer to the psychiatric unit once patient is medically clear and a bed becomes available. Staff needs to obtain his medication regimen from his outpatient providers and then psychiatry can subsequently determine the proper medications. Justification for Continued Inpatient Stay: Patient would decompensate in a less restrictive setting
[2017-12-31 23:14] LABS: Amphetamine Screen,Urine Neg (Neg); Barbiturate Screen,Urine Neg (Neg); Cannabinoid Screen,Urine Neg (Neg); Cocaine Screen,Urine Pos (Neg); Opiate Screen,Urine Neg (Neg)
== END 2017-12-31 22:58 ==
LOC: NEDA 20:01 → NEPD 20:01 → NEDA 12-31 02:46 → NEPFCDU 12-31 02:47
PROVIDERS: ADMIT Hospitalist; ATTEND Hospitalist

== ENCOUNTER 2017-12-31 21:42 | Inpatient (IN) ==
[2017-12-31] MEDS ORDERED: Acetaminophen 325 MG Tablet PO PRN (23:22)
[2017-12-31] MEDS ORDERED: Aluminum/Magnesium/Simethacone Susp 30 ML UDC PO PRN (23:22)
[2017-12-31] MEDS ORDERED: Melatonin 5 MG Tablet PO PRN (23:22)
[2018-01-01 07:46] LABS: Chol/HDL Ratio 3.7 Ratio; HDL Cholesterol 45.6 mg/dL (40.0-60.0)
[2018-01-01 08:12] LABS: CKMB Percent 1.3 % (0.0-4.0); Creatine Kinase MB 9.3 ng/mL (0.5-3.6)
--- NOTE | 2018-01-01 11:12 | P.CON ---
History of Present Illness Consult date: 01/01/18 Reason for Consult: Medical management Primary Care Provider: UNKNOWN History of Present Illness: 62-year-old man for past medical history of extensive psychosis, Schizoaffective Disorder who was initially brought to the ER under [place] [facility] for suicidal ideation and bizarre behavior on 12/31/17 ;he was admitted to the Medicine team and was treated for LEANDRA with IVF hydration. During that Hospitalization Psychiatry was consulted. Patient was discharged to inpatient Med-Psychiatry. [facility] was consulted for medical management Review of Systems All other systems reviewed negative except as stated in HPI [facility] - History History Provided By: Patient - Medical History Medical History: Medical History (Last Updated 12/30/17 @ 20:26 by Rah Hewitt) Medical history unknown Surgical history unknown - Tobacco History Second Hand Smoke Exposure: Yes Tobacco Use In Past 30 Days: Yes Smoking Status: Current every day smoker Tobacco Type: Cigarettes - Alcohol History How Often Do You Have a Drink Containing Alcohol: Unable to Obtain - Substance Use History Substance History: Active Abuse Medications and Allergies Active Medications: Active Medications Acetaminophen (Tylenol) 650 mg PO Q4H PRN PRN Reason: Pain 1-5 or Temp >101F Al Hydrox/Mg Hydrox/Simethicone (Mag-Al Plus Susp Liq) 30 ml PO Q6H PRN PRN Reason: DYSPEPSIA Al Hydroxide/Mg Hydroxide (Milk Of Magnesia Liq) 30 ml PO Q12H PRN PRN Reason: Mild Constipation Melatonin (Melatonin) 5 mg PO HS PRN PRN Reason: INSOMNIA Allergies Allergy/AdvReac Type Severity Reaction Status Date / Time No Known Allergies Allergy Unverified 12/30/17 20:22 Home Medications Medication Instructions Recorded Confirmed Type Unable to Obtain Home Meds 12/30/17 12/30/17 History Physical Exam Vital signs: Vital Signs 12/31/17 23:30 01/01/18 06:00 Temperature 97.7 F 97.9 F Pulse Rate 70 76 Respiratory Rate 20 18 Blood Pressure 143/77 H 118/71 Pulse Oximetry 100 99 Intake & Output 12/31/17 01/01/18 01/01/18 18:59 06:59 18:59 Intake Total 240 / 240 Balance 240 / 240 Weight 68 kg Intake: Oral 240 / 240 Other: # Voids 2 Narrative: GENERAL: NAD SKIN: Warm and dry. HEAD: Atraumatic. Normocephalic. EYES: Pupils equal and round. No scleral icterus. No injection or drainage. ENT: No nasal bleeding or discharge. Mucous membranes pink and moist. NECK: Trachea midline. No JVD. CARDIOVASCULAR: Regular rate and rhythm. RESPIRATORY: No accessory muscle use. Clear to auscultation. Breath sounds equal bilaterally. GASTROINTESTINAL: Abdomen soft, non-tender, nondistended. Hepatic and splenic margins not palpable. MUSCULOSKELETAL: Extremities without clubbing, cyanosis, or edema. No obvious deformities. NEUROLOGICAL: Awake and alert. No obvious cranial nerve deficits. Motor grossly within normal limits. Five out of 5 muscle strength in the arms and legs. Normal speech. PSYCHIATRIC: flat affect; insight and judgment poor. Assessment and Plan - Plan 62 year old man with Acute mood disorder Schizoaffective disorder Management per Psychiatry LEANDRA Continue with IVF hydration Monitor Bun/Cr and monitor Avoid all nephrotoxic drugs Mild Rhabdomyolysis Continue with IVF hydration Monitor CK Alcohol abuse Start CIWA protocol, rally pack Tobacco abuse Extensively counselled Prior h/o cocaine abuse counselled against DVT prophylaxis: Encourage ambulation Thank you for this consultation
[2018-01-01 12:35] LABS: Hemoglobin A1c 5.8 % (4.3-6.0)
[2018-01-01] MEDS ORDERED: LORazepam 1 MG Tablet PO PRN (17:57)
[2018-01-01] MEDS: Sod Chloride 0.9% Inj 1,000 ML IV.CONT SCH (18:15)
--- NOTE | 2018-01-01 18:36 | P.HPPSY ---
Provisional Diagnosis Admission Date: December 31, 2017 22:56 [place] I.: Schizoaffective disorder Competence Certification of Person's Competence To Provide Express and Informed Consent I have personally examined Neftaly Lr, a person being served at [facility] on, January 01, 2018 1835. Express and informed consent means consent voluntarily given in writing, by a competent person, after sufficient explanation and disclosure of the subject matter involved to enable the person to make a knowing and willful decision without any element of force, fraud, deceit, duress, or other form of constraint or coercion. This person is 18 years of age or older, is not now known to be incompetent to consent to treatment with a guardian advocate, and does not have a health care surrogate or proxy currently making medical treatment decisions. I have found this person to be one of the following: [] Competent to provide express and informed consent, as defined above, for voluntary admission to this facility and is competent to provide express and informed consent for treatment. He/she has the consistent capacity to make well reasoned, willful, and knowing decisions concerning his or her medical or mental health treatment. The person fully and consistently understands the purpose of the admission for examination/placement and is fully capable of personally exercising all rights assured under [place] [] Incompetent to provide express and informed consent to voluntary admission, and this is incompetent to provide express and informed consent to treatment. The person must be transferred to involuntary status and a petition for a guardian advocate filed with the Circuit Court. [xxx] Refusing to provide express and informed consent to voluntary admission but is competent to provide express and informed consent for treatment. The person must be discharged or transferred to involuntary status. Form shall be completed within 24 hours of a person's arrival at the receiving facility and filed in the clinical record of each person: 1. Admitted on a voluntary basis 2. Permitted to provide express and informed consent to his/her own treatment 3. Allowed to transfer from involuntary to voluntary status 4. Prior to permitting a person to consent to his or her own treatment after having been previously found incompetent to consent to treatment. History of Present Illness Capacity: Has capacity History of Present Illness: Patient is a 62-year-old man, single, no children, domiciled, unemployed on [employer], with a past psychiatric history of schizoaffective disorder, multiple psychiatric admissions, previous suicide attempts, history of noncompliance with treatment, with a past medical history significant for hypertension, right eye blindness, crack cocaine use disorder was brought into the [place] by police after neighbor had concerns that patient was out of his medications and agitated along with patient having made suicidal statements which patient was admitted to the inpatient psychiatry for further evaluation and management. Patient was initially admitted under medical service for acute kidney injury and transferred to the med/psych unit for psychiatric stabilization. Patient was seen by psychiatry consult by Dr. Haas: This is a requested psychiatric consultation in the emergency room. Patient is a 62-year-old white male with an extensive history of psychosis. Patient was brought in to the ER with altered mental status and agitation. This morning per nursing, he received an ETO of Haldol Ativan and Benadryl and subsequently another dose of Ativan. Patient was observed responding to internal stimuli, talking to himself. There is for self-care deficit given his disheveled nature , noncompliance with his medication, and dehydration. Patient has poor insight concerning his history and does give a convoluted story. Though, he does admit to a history of psychosis and spending time in the [facility] in [place] in the 1970s. Patient denies any recent inpatient admissions in the past couple of years but is a poor historian. He does admit to outpatient treatment with somebody named Tank at the [facility]. Patient did describes a stable mood and denies depressive symptoms. Denies suicidal or homicidal ideation intent or plan. Discussion nursing staff reported the patient was agitated last evening, recently seen by hospitalist for follow up and started on IV fluids as patient CK will continue to be elevated. Patient was found lying hospital bed with one- to-one observation at bedside, noted with speech impediment. Patient states that recently having run out of his medications and to be disorganized during interview with difficulty following patient's thought process. He reports having had auditory hallucinations of voices stating "I am your mother, I am Kirill". Patient also reports visual hallucinations but now elaborate made some nonsensical statements. Patient denies any paranoid ideation, reports no difficulty with sleep appetite energy or concentration prior to admission but admits to noncompliance with medications for the past 3 weeks. As per bullet[place]. act stating patient making suicidal statement, patient denies but as per chart has stated "wanting to and cut out his heart". Currently patient continues to with disorganization, auditory and visual hallucinations, denying any suicidal or homicidal ideations at this time. Family psychiatric history: Mother with depression, reports father having had state hospitalizations in the past, unclear if patient has had suicides in the family. Past psychiatric history: Previous psychiatric diagnosis schizoaffective disorder, multiple psychiatric admissions, prior suicide attempt as per chart patient denies. Patient reports having outpatient follow-up through [facility], last seen several weeks ago. Patient denies history of abuse Past medical history: Hypertension, right eye blindness Allergies: NKDA Substance use history: tobacco use, denies any alcohol use reports crack cocaine use last time being 2 weeks ago. Social history: Single, no children, domiciled, unemployed on SSI, highest education is high school. - Inpatient Certification I certify that the inpatient services were ordered in accordance with Medicare regulations governing the order. This includes certification that hospital inpatient services are reasonable and necessary and in the case of services not specified as inpatient-only under 42 CFR 419.22(n), that they are appropriately provided as inpatient services in accordance to with the 2-midnight benchmark under 43 CFR 412.3(e) I certify that inpatient psychiatric hospital services are medically necessary. Evaluation and treatment and/or diagnostic testing are expected to improve the patient's condition. The patient needs on a daily basis, active treatment furnished directly by or requiring the supervision of inpatient psychiatric facility personnel. Estimated Total Length of Stay (Days): 7 Plans for Post Hospital Care: Not yet determined Review of Systems All other systems reviewed negative except as stated in HPI [facility] - History History Provided By: Patient, Medical Record - Medical History Medical History: Medical History (Last Updated 12/30/17 @ 20:26 by Rah Hewitt) Medical history unknown Surgical history unknown - Tobacco History Second Hand Smoke Exposure: Yes Tobacco Use In Past 30 Days: Yes Smoking Status: Current every day smoker Tobacco Type: Cigarettes - Alcohol History How Often Do You Have a Drink Containing Alcohol: Unable to Obtain - Substance Use History Substance History: Active Abuse Quality Measures - Psychiatric History Psychological trauma history: Denies Violence risk to others in the last 6 months: Elevated due to recent reports of patient having episodes of agitation Violence risk to self in the last 6 months: Elevated due to recent suicidal statements - Substance Abuse History Drug or alcohol use in the past 12 months: See HPI - Patient Strengths Patient's strengths (minimum of 2): Verbal and communicative Medications and Allergies Active Medications: Active Medications Acetaminophen (Tylenol) 650 mg PO Q4H PRN PRN Reason: Pain 1-5 or Temp >101F Al Hydrox/Mg Hydrox/Simethicone (Mag-Al Plus Susp Liq) 30 ml PO Q6H PRN PRN Reason: DYSPEPSIA Al Hydroxide/Mg Hydroxide (Milk Of Magnesia Liq) 30 ml PO Q12H PRN PRN Reason: Mild Constipation Diphenhydramine HCl (Benadryl) 50 mg PO HS PRN PRN Reason: INSOMNIA Haloperidol (Haldol) 5 mg PO BID NINO Sodium Chloride (Ns Inj) 1,000 mls @ 70 mls/hr IV.CONT .[id number] NINO Last Admin: 01/01/18 18:15 Dose: 70 mls/hr Lorazepam (Ativan) 1 mg PO Q6H PRN PRN Reason: ANXIETY Melatonin (Melatonin) 5 mg PO HS PRN PRN Reason: INSOMNIA Allergies Allergy/AdvReac Type Severity Reaction Status Date / Time No Known Allergies Allergy Unverified 12/30/17 20:22 Home Medications Medication Instructions Recorded Confirmed Type Unable to Obtain Home Meds 12/30/17 12/30/17 History Results - Labs Labs: Laboratory Results - last 24 hr 01/01/18 01/01/18 06:54 06:54 Hemoglobin A1c 5.8 Total Creatine Kinase 733 H CK-MB (CK-2) 9.3 H CK-MB (CK-2) % 1.3 Triglycerides 104 Cholesterol 169 LDL Cholesterol, Calc 103 H HDL Cholesterol 45.6 Cholesterol/HDL Ratio 3.70 Exam Vital signs: Vital Signs 12/31/17 23:30 01/01/18 06:00 01/01/18 18:26 Temperature 97.7 F 97.9 F 97.4 F L Pulse Rate 70 76 76 Respiratory Rate 20 18 16 Blood Pressure 143/77 H 118/71 165/97 H Pulse Oximetry 100 99 100 Intake & Output 12/31/17 01/01/18 01/01/18 18:59 06:59 18:59 Intake Total 240 / 240 1460 / 1460 Balance 240 / 240 1460 / 1460 Weight 68 kg Intake: Oral 240 / 240 1460 / 1460 Other: # Voids 2 2 - Constitutional no acute distress, cooperative Mental Status Examination Appearance: Disheveled Consciousness: Alert Orientation: Person, Place Speech: Speech impediment Language: Adequate Fund of Knowledge: Inadequate Attention and Concentration: Easily distracted Memory: Impaired Mood: Other ("Okay") Affect: Blunt Thought Process & Associations: Loose associations, Disorganized, Tangential Thought Content: Hallucinations Hallucination Type: Auditory Delusion Type: None Suicidal Ideation: Yes (denies at this time) Suicidal Plan: No Suicidal Intention: No Homicidal Ideation: No Homicidal Plan: No Homicidal Intention: No Insight: Poor Judgment: Poor Assessment and Plan - Assessment (1) Schizoaffective disorder Code(s): F25.9 - Schizoaffective disorder, unspecified Status: Acute - Plan Plan: Estimated LOS: [] days Patient is a 62 y/o man who carries a diagnosis of schizoaffective disorder, prior psychiatric admissions, prior suicide attempts recently admitted under [place] act due to self-care deficits concerned as well as recent suicidal statement in the context of noncompliance with medications and noted to be talking to self and responding to internal stimuli patient requires inpatient stabilization at this time. We will restart patient on Haldol 5 mg p.o. twice daily, continue to monitor mood and behavior. Petition for involuntary hospitalization started, second opinion requested. Patient has capacity to consent for treatment at this time. Continue recommendations as per prior medical team. Discharge planning a progress. Justification for Continued Inpatient Stay: At risk of further decompensation a lower level of care.
[2018-01-01] MEDS: Haloperidol 5 MG Tablet PO SCH (20:26)
[2018-01-02] MEDS: Sod Chloride 0.9% Inj 1,000 ML IV.CONT SCH (06:20)
[2018-01-02 07:16] LABS: Alanine Aminotransferase 31 U/L (12-78); Albumin 3.5 g/dL (3.4-5.0); Anion Gap 9 meq/L (5-15); Aspartate Aminotransferase 34 U/L (15-37); Blood Urea Nitrogen 15 mg/dL (7-18); Calcium 8.6 mg/dL (8.5-10.1); Carbon Dioxide 22.4 meq/L (21.0-32.0); Chloride 116 meq/L (98-107); Glomerular Filtration Rate 42 mL/min (>89); Glucose,Random 87 mg/dL (74-106); Potassium 4.1 meq/L (3.5-5.1); Sodium 147 meq/L (136-145)
[2018-01-02 07:32] LABS: Alkaline Phosphatase 79 U/L (45-117); Total Protein 7.1 g/dL (6.4-8.2)
[2018-01-02 07:37] LABS: CKMB Percent 1.1 % (0.0-4.0); Creatine Kinase MB 5.4 ng/mL (0.5-3.6)
[2018-01-02] MEDS: Haloperidol 5 MG Tablet PO SCH ×2 (09:04→20:54)
--- NOTE | 2018-01-02 09:29 | P.PN ---
Subjective Interval history: Follow-up rhabdomyolysis January 02, 2018-patient seen and examined, no acute event overnight, afebrile , CK improving Physical Exam Vital signs: Vital Signs 01/01/18 18:26 01/02/18 05:15 Temperature 97.4 F L 98.6 F Pulse Rate 76 88 Respiratory Rate 16 18 Blood Pressure 165/97 H 155/88 H Pulse Oximetry 100 98 Intake & Output 01/01/18 01/02/18 01/02/18 18:59 06:59 18:59 Intake Total 1460 / 1460 1959 Balance 1460 / 1460 1959 / 1959 Intake: IV 1000 / 1000 NS Inj 1,000 ML @ 70 mls/hr IV. 1000 / 1000 CONT .[id number] NINO Rx#:[id number] Oral 1460 / 1460 960 / 960 Other: # Voids 2 2 Narrative: GENERAL: NAD SKIN: Warm and dry. HEAD: Atraumatic. Normocephalic. EYES: Pupils equal and round. No scleral icterus. No injection or drainage. ENT: No nasal bleeding or discharge. Mucous membranes pink and moist. NECK: Trachea midline. No JVD. CARDIOVASCULAR: Regular rate and rhythm. RESPIRATORY: No accessory muscle use. Clear to auscultation. Breath sounds equal bilaterally. GASTROINTESTINAL: Abdomen soft, non-tender, nondistended. Hepatic and splenic margins not palpable. MUSCULOSKELETAL: Extremities without clubbing, cyanosis, or edema. No obvious deformities. NEUROLOGICAL: Awake and alert. No obvious cranial nerve deficits. Motor grossly within normal limits. Five out of 5 muscle strength in the arms and legs. Normal speech. PSYCHIATRIC: flat affect; insight and judgment poor. Results - Labs CBC & Chem 7: 01/02/18 06:15 Laboratory Results - last 24 hr 01/01/18 01/02/18 01/02/18 06:54 06:15 06:15 Sodium 147 H Potassium 4.1 Chloride 116 H Carbon Dioxide 22.4 Anion Gap 9 BUN 15 Creatinine 1.65 H Estimated GFR 42 L Random Glucose 87 Hemoglobin A1c 5.8 Calcium 8.6 Total Bilirubin 0.3 AST 34 ALT 31 Alkaline Phosphatase 79 Total Creatine Kinase 481 H CK-MB (CK-2) 5.4 H CK-MB (CK-2) % 1.1 Total Protein 7.1 D Albumin 3.5 Assessment and Plan - Plan 62 year old man with Acute mood disorder Schizoaffective disorder Management per Psychiatry LEANDRA Improved with IVF hydration Monitor Bun/Cr and monitor Avoid all nephrotoxic drugs Mild Rhabdomyolysis Improving with IVF hydration Hep-Lock IV fluid Monitor CK Alcohol abuse CIWA protocol, rally pack Tobacco abuse Extensively counselled Prior h/o cocaine abuse counselled against DVT prophylaxis: Encourage ambulation [facility] will sign off, reconsult as needed
--- NOTE | 2018-01-02 11:47 | P.CONPSY ---
Provisional Diagnosis Admission Date: December 31, 2017 22:56 [place].: Schizoaffective disorder History of Present Illness Service: Psychiatry Consult date: 01/02/18 Requesting Physician: Socrates Bhatti Reason for Consult: Second opinion petition supporting Rodriguez act Primary Care Provider: UNKNOWN History of Present Illness: Patient is a 62-year-old white male admitted to Dr. Bhatti service under the Rodriguez act Dr. Bhatti H&P reviewed and agreed with. Dr. Bhatti assigned first opinion petition supporting Rodriguez act. Patient seen by me with nurse Harry patient is somewhat intense and labile volatile vigilant with little insight into her disease. At this time patient does not meet criteria for involuntary psychiatric hospitalization under the Rodriguez act thus I will cosign second opinion petition supporting Rodriguez Review of Systems All other systems reviewed negative except as stated in HPI PMFSH - History History Provided By: Patient, Medical Record - Medical History Medical History: Medical History (Last Updated 12/30/17 @ 20:26 by Rah Hewitt) Medical history unknown Surgical history unknown - Tobacco History Second Hand Smoke Exposure: Yes Tobacco Use In Past 30 Days: Yes Smoking Status: Current every day smoker Tobacco Type: Cigarettes - Alcohol History How Often Do You Have a Drink Containing Alcohol: Unable to Obtain - Substance Use History Substance History: Active Abuse Medications and Allergies Active Medications: Active Medications Acetaminophen (Tylenol) 650 mg PO Q4H PRN PRN Reason: Pain 1-5 or Temp >101F Al Hydrox/Mg Hydrox/Simethicone (Mag-Al Plus Susp Liq) 30 ml PO Q6H PRN PRN Reason: DYSPEPSIA Al Hydroxide/Mg Hydroxide (Milk Of Magnesia Liq) 30 ml PO Q12H PRN PRN Reason: Mild Constipation Diphenhydramine HCl (Benadryl) 50 mg PO HS PRN PRN Reason: INSOMNIA Haloperidol (Haldol) 5 mg PO BID [facility] Last Admin: 01/02/18 09:04 Dose: 5 mg Sodium Chloride (Ns Inj) 1,000 mls @ 70 mls/hr IV.CONT .[id number] [facility] Last Admin: 01/02/18 06:20 Dose: 70 mls/hr Lorazepam (Ativan) 1 mg PO Q6H PRN PRN Reason: ANXIETY Melatonin (Melatonin) 5 mg PO HS PRN PRN Reason: INSOMNIA Nicotine (Habitrol 21 Mg Patch.24 Hr) 1 patch T-DERMAL DAILY NINO Patch Removal (Remove Old Patch) 1 each T-DERMAL DAILY NINO Allergies Allergy/AdvReac Type Severity Reaction Status Date / Time No Known Allergies Allergy Unverified 12/30/17 20:22 Home Medications Medication Instructions Recorded Confirmed Type Unable to Obtain Home Meds 12/30/17 12/30/17 History Exam Vital signs: Vital Signs 01/01/18 18:26 01/02/18 05:15 Temperature 97.4 F L 98.6 F Pulse Rate 76 88 Respiratory Rate 16 18 Blood Pressure 165/97 H 155/88 H Pulse Oximetry 100 98 Intake & Output 01/01/18 01/02/18 01/02/18 18:59 06:59 18:59 Intake Total 1460 / 1460 1960 / 1960 360 / 360 Balance 1460 / 1460 1960 / 1960 360 / 360 Intake: IV 1000 / 1000 NS Inj 1,000 ML @ 70 mls/hr IV. 1000 / 1000 CONT .[id number] NINO Rx#:[id number] Oral 1460 / 1460 960 / 960 360 / 360 Other: # Voids 2 2 Mental Status Examination Appearance: Disheveled Consciousness: Alert Orientation: Person, Place Speech: Speech impediment Language: Adequate Fund of Knowledge: Inadequate Attention and Concentration: Easily distracted Memory: Impaired Mood: Other ("Okay") Affect: Blunt Thought Process & Associations: Loose associations, Disorganized, Tangential Thought Content: Hallucinations Hallucination Type: Auditory Delusion Type: None Suicidal Ideation: Yes (denies at this time) Suicidal Plan: No Suicidal Intention: No Homicidal Ideation: No Homicidal Plan: No Homicidal Intention: No Insight: Poor Judgment: Poor Assessment and Plan - Assessment (1) Schizoaffective disorder Code(s): F25.9 - Schizoaffective disorder, unspecified Status: Acute - Plan Plan: Patient remains quite psychotic vigilant with manic flavor patient meets criteria thus I will cosign second opinion petition Justification for Continued Inpatient Stay: At this time patient would decompensate a place to a lower level of care Discharge Planning: To be determined
--- NOTE | 2018-01-02 11:49 | P.PNPSY ---
Subjective Remarks: Patient seen for follow, chart reviewed. Discussion nursing staff reported the patient with no behavioral issues, has a compliant medication. Patient was found lying hospital bed noted to be, cooperative, continues to have some disorganization, requesting nicotine patch. Patient states that he is feeling "good" continues to have some nonphysical statements at times, tangential, reports tolerating medications well denying any physical complaints at this time. Patient reports sleeping well, adequate appetite, continues to endorse auditory hallucinations "slightly" denying any suicidal homicidal ideations. Patient states last time he has suicide ideation was 2 days ago but did not elaborate. Review of Systems All other systems reviewed negative except as stated in HPI Mental Status Examination Appearance: Appropriate Consciousness: Alert Orientation: Person, Place Speech: Speech impediment Language: Adequate Fund of Knowledge: Inadequate Attention and Concentration: Easily distracted Memory: Impaired Mood: Other ("Okay") Affect: Blunt Thought Process & Associations: Loose associations, Disorganized (At times), Tangential Thought Content: Hallucinations Hallucination Type: Auditory Delusion Type: None Suicidal Ideation: Yes (denies at this time) Suicidal Plan: No Suicidal Intention: No Homicidal Ideation: No Homicidal Plan: No Homicidal Intention: No Insight: Poor Judgment: Poor Assessment and Plan - Assessment (1) Schizoaffective disorder Code(s): F25.9 - Schizoaffective disorder, unspecified Status: Acute - Plan Plan: Patient continues to have lessening of auditory hallucinations and continues to have some disorganization but no behavioral disturbances. Patient has a compliant with treatment. We will continue current medication regimen for now, we will continue to monitor mood and behavior. Discharge planning a progress. Justification for Continued Inpatient Stay: At risk of further decompensation a lower level of care.
[2018-01-02 18:26] VITALS: RESP 17
[2018-01-03 05:59] VITALS: BP 137/67; PULSE 77; TEMP 96.5; O2SAT 98
[2018-01-03] MEDS: Haloperidol 5 MG Tablet PO SCH (08:56)
--- NOTE | 2018-01-03 18:17 | P.DSPSY ---
Psychiatry Discharge Summary Inpatient Psychiatric care?: Yes Advance Directives: No Mental Health Advance Directive: No Health Care Proxy: No - Admission Admission Date: December 31, 2017 22:56 - Admission Diagnosis (1) Schizoaffective disorder Code(s): F25.9 - Schizoaffective disorder, unspecified Brief History: Patient is a 62-year-old man, single, no children, domiciled, unemployed on SSI, with a past psychiatric history of schizoaffective disorder, multiple psychiatric admissions, previous suicide attempts, history of noncompliance with treatment, with a past medical history significant for hypertension, right eye blindness, crack cocaine use disorder was brought into the [employer] act by police after neighbor had concerns that patient was out of his medications and agitated along with patient having made suicidal statements which patient was admitted to the inpatient psychiatry for further evaluation and management. Patient was initially admitted under medical service for acute kidney injury and transferred to the med/psych unit for psychiatric stabilization. Patient was seen by psychiatry consult by Dr. Haas: This is a requested psychiatric consultation in the emergency room. Patient is a 62-year-old white male with an extensive history of psychosis. Patient was brought in to the ER with altered mental status and agitation. This morning per nursing, he received an ETO of Haldol Ativan and Benadryl and subsequently another dose of Ativan. Patient was observed responding to internal stimuli, talking to himself. There is for self-care deficit given his disheveled nature , noncompliance with his medication, and dehydration. Patient has poor insight concerning his history and does give a convoluted story. Though, he does admit to a history of psychosis and spending time in the [facility] in [place] in the 1970s. Patient denies any recent inpatient admissions in the past couple of years but is a poor historian. He does admit to outpatient treatment with somebody named [facility] at the [facility]. Patient did describes a stable mood and denies depressive symptoms. Denies suicidal or homicidal ideation intent or plan. Discussion nursing staff reported the patient was agitated last evening, recently seen by hospitalist for follow up and started on IV fluids as patient CK will continue to be elevated. Patient was found lying hospital bed with one- to-one observation at bedside, noted with speech impediment. Patient states that recently having run out of his medications and to be disorganized during interview with difficulty following patient's thought process. He reports having had auditory hallucinations of voices stating "I am your mother, I am Kirill". Patient also reports visual hallucinations but now elaborate made some nonsensical statements. Patient denies any paranoid ideation, reports no difficulty with sleep appetite energy or concentration prior to admission but admits to noncompliance with medications for the past 3 weeks. As per Rodriguez act stating patient making suicidal statement, patient denies but as per chart has stated "wanting to and cut out his heart". Currently patient continues to with disorganization, auditory and visual hallucinations, denying any suicidal or homicidal ideations at this time. Family psychiatric history: Mother with depression, reports father having had state hospitalizations in the past, unclear if patient has had suicides in the family. Past psychiatric history: Previous psychiatric diagnosis schizoaffective disorder, multiple psychiatric admissions, prior suicide attempt as per chart patient denies. Patient reports having outpatient follow-up through [facility], last seen several weeks ago. Patient denies history of abuse Past medical history: Hypertension, right eye blindness Allergies: NKDA Substance use history: tobacco use, denies any alcohol use reports crack cocaine use last time being 2 weeks ago. Social history: Single, no children, domiciled, unemployed on [employer], highest education is high school. Tobacco Use In Past 30 Days: Yes How Often Do You Have a Drink Containing Alcohol: Unable to Obtain Hospital Course: Patient is a 62-year-old man, single, no children, domiciled, unemployed on [employer], with a past psychiatric history of schizoaffective disorder, multiple psychiatric admissions, previous suicide attempts, history of noncompliance with treatment, with a past medical history significant for hypertension, right eye blindness, crack cocaine use disorder was brought into the Rodriguez act by police after neighbor had concerns that patient was out of his medications and agitated along with patient having made suicidal statements which patient was admitted to the inpatient psychiatry for further evaluation and management. Patient was initially admitted under medical service for acute kidney injury and transferred to the med/psych unit for psychiatric stabilization. Patient was resumed on medication regimen which he tolerated well with no notable adverse drug reactions. He was observed by staff not to have had any behavioral disturbances, nor made any suicidal or homicidal ideation and able to reach and maintain stable mood during admission and was noted to participate with staff adequately. Patient was noted to participate in self-care, engaged with staff and maintaining adequate hygiene. Patient denied any perceptual disturbances, future oriented and motivated to return back home and to continue outpatient follow-up. Treatment team was able to set up outpatient follow-up appointments which patient can continue for continuity of care. Upon discharge patient stated feeling "good" reported feeling well with treatment, agreed to continue treatment and his mother willing to accept patient back home. Patient from a mental health perspective no longer met criteria for continued inpatient level of care. Patient denied any SI, HI, perceptual disturbances or delusions. Weighing the acute, chronic, and protective factors and based on the available evidence, I industrial property appraiser to a reasonable degree of medical certainty that the patient is at low imminent risk of harm to self or others for mental illness as defined under the Rodriguez act and his level of function is adequate as observed on the unit for planned level of outpatient care. Patient was counseled regarding warning signs for need to return to the psychiatric emergency room as part of the general safety plan. Patient advised to call 911 or go to nearest ED in case of emergency. Patient agrees with plan. - Discharge Discharge Date: 01/03/18 - Discharge Diagnosis (1) Schizoaffective disorder Code(s): F25.9 - Schizoaffective disorder, unspecified Status: Acute Discharge Disposition: Home - Discharge Instructions Discharge Diet: Heart Healthy Diet Activities You Can Perform: Regular- No Restrictions - Discharge Time > 30 minutes Mental Status Examination Appearance: Appropriate Consciousness: Alert Orientation: Person, Place Speech: Speech impediment Language: Adequate Fund of Knowledge: Inadequate Attention and Concentration: Adequate Memory: Impaired Mood: Appropriate Affect: Appropriate Thought Process & Associations: Intact, Linear Thought Content: Hallucinations Hallucination Type: None Delusion Type: None Suicidal Ideation: No Suicidal Plan: No Suicidal Intention: No Homicidal Ideation: No Homicidal Plan: No Homicidal Intention: No Insight: Fair Judgment: Impulsive Discharge/Advance Care Plan - Results Vital Signs: Last Vital Signs Temp 96.5 F L 01/03/18 05:58 Pulse 77 01/03/18 05:58 Resp 17 01/03/18 05:58 BP 137/67 01/03/18 05:58 Pulse Ox 98 01/03/18 05:58 Lab Results: Laboratory Results Hemoglobin A1c 5.8 % (4.3-6.0) 01/01/18 06:54 Triglycerides 104 mg/dL (42-150) 01/01/18 06:54 Cholesterol 169 mg/dL (120-200) 01/01/18 06:54 LDL Cholesterol, Calc 103 mg/dL (0-99) H 01/01/18 06:54 HDL Cholesterol 45.6 mg/dL (40.0-60.0) 01/01/18 06:54 Summary of Procedures: none Pending Results: None - Medications Number of antipsychotic medications at discharge: 1 - Discharge Care Plan Goals to Promote Your Health: * To prevent worsening of your condition and complications * To maintain your health at the optimal level Directions to Meet Your Goals: Take your medications as prescribed Follow your dietary instruction Follow activity as directed Keep your appointments as scheduled Take your immunizations and boosters as scheduled If your symptoms worsen call your PCP, if no PCP go to Urgent Care Center or Emergency Room For 07/11 questions related to your inpatient stay or results of tests pending at discharge, please contact Dr. Socrates Bhatti MD at Smoking is Dangerous to Your Health. Avoid second hand smoking
== END 2018-01-03 15:00 | disposition home or self-care (01) ==
LOC: H4EA 22:56
PROVIDERS: ADMIT Student in an Organized Health Care Education/Training Program; ATTEND Student in an Organized Health Care Education/Training Program
CPT/HCPCS: 80053; 80061; 82550; 82552; 83036; J2060; J7030